=== PATIENT | female | born 1995 | race Caucasian/White ===

== ENCOUNTER 2018-04-10 07:07 | Emergency (ER) | payer MEDICAID, SELFPAY ==
--- NOTE | 2018-04-10 07:07 | DT_ITS ---
This patient was seen during an EMR downtime April 06, 2018 - April 13, 2018. This patient may have a combination of paper and electronic documentation or all paper documentation. All documentation is viewable within the e-chart portion of [facility] for each patient visit.
--- NOTE | 2018-04-10 08:00 | RAD_ITS ---
STUDY: X-RAY CHEST REASON FOR EXAM: Female, 23 years old. Dyspnea. TECHNIQUE: Frontal and lateral views of the chest. COMPARISON: October 19, 2017 FINDINGS: The lungs are clear and expanded. There is no demonstrated pleural abnormality. Normal size heart. Normal mediastinum and luis. Normal visualized pulmonary arteries. Normal visualized aortic arch and descending thoracic aorta. Normal visualized thoracic spine. Normal visualized ribs, clavicles, and shoulders. There is no demonstrated abnormality of the visualized soft tissue structures of the upper abdomen. RAD/Chest PA and Lateral IMPRESSION: No interval change. No acute pathology. Electronically Signed: Jose Antonio Javier MD at 12:58 EDT , Service support ,
--- NOTE | 2018-04-10 08:35 | CT_ITS ---
STUDY: CTA CHEST REASON FOR EXAM: Female, 23 years old. Dyspnea RADIATION DOSAGE (If Supplied By Facility): CTDIvol = ( 11.26 ) mGy, DLP = ( 386.03 ) mGycm TECHNIQUE: The examination was performed with the intravenous administration of 75ML ml of Isovue 370 contrast material. Post-processing of the angiographic images was performed, with multiplanar reformation and 3D reconstruction. Individualized dose optimization techniques were used for this CT. COMPARISON: None. FINDINGS: Normal enhancement of the main pulmonary artery and right and left pulmonary arteries. Normal enhancement of the bilateral peripheral pulmonary arteries. There is no demonstrated pulmonary embolism. Normal thoracic aorta and visualized great vessels. There is no demonstrated aortic dissection. Normal heart and pericardium. Normal mediastinum. Normal hilar regions. Normal visualized trachea and bronchi. The lungs are well expanded. Normal pulmonary parenchyma. Normal pleura. Normal chest wall structures. Normal osseous structures. Normal visualized upper abdomen. CT/Chest W/WO Contrast IMPRESSION: Normal CTA chest examination, without a demonstrated pulmonary embolism or arterial dissection. Electronically Signed: Shukri Plummer MD at 6:20 EDT , Service support ,
[2018-04-13 15:56] LABS: D-Dimer Quantitative (DVT/PE) 1.46 FEU/ug/m (0.27-0.49)
[2018-04-13 15:57] LABS: Absolute Lymphocyte Count 1.31 X10^3/ul (0.83-4.51); Absolute Neutrophil Count 9.1 X10^3/uL (2.0-7.7); Basophil# 0.01 X10^3/uL; Basophil% 0.1 % (0-1); Eosinophil# 0.02 X10^3/uL; Eosinophils% 0.2 % (0-5); Hematocrit 38.7 % (37-47); Hemoglobin 13.2 g/dl (12.0-15.0); Lymphocyte # 1.31 X10^3/ul (4.0); Lymphocyte % 11.7 % (19-41); Mean Corp Hgb Conc 34.1 g/gl (32-36); Mean Corpuscular Hgb 31.8 pg (27.0-32.0); Mean Corpuscular Volume 93.3 fL (81-99); Mean Platelet Vol. 10.7 fl (6.2-12.0); Monocyte# 0.75 X10^3/uL; Monocyte% 6.7 % (0-10); Neutrophil # 9.08 X10^3/uL (2.7-7.7); Neutrophil % 81.2 % (47-70); POSITIVE COUNT NO; POSITIVE DIFFERENTIAL NO; POSITIVE MORPHOLOGY NO; Platelet Count 162 K/mm3 (150-450); RBC Distribution Width SD 12.8 fl (35.1-43.9); Red Blood Count 4.15 M/mm3 (4.2-5.4); White Blood Count 11.2 K/mm3 (4.4-11.0)
[2018-04-13 21:30] LABS: Anion Gap 7 (5-15); BUN 8 mg/dL (7-18); BUN/Creat Ratio 9.5 RATIO (10-20); Calcium,Total 8.5 mg/dL (8.5-10.1); Chloride 110 mmol/L (98-107); Creatinine, Serum 0.84 mg/dL (0.55-1.02); EST Glomerular Filtration Rate 91 mL/min (>60); Est Glom Filt Rate - Afr Amer 110 mL/min (>60); Glucose 97 mg/dL (74-106); Potassium 3.8 mmol/L (3.5-5.1); Sodium Level 141 mmol/L (136-145)
[2018-04-13 21:31] LABS: Pregnancy, Serum, hCG Quali. POSITIVE Negative (0-9 Nonpreg)
== END 2018-04-10 09:40 | disposition home or self-care (01) ==
LOC: ED 12:41
PROVIDERS: Emergency Provider Emergency Medicine; Family Provider Family Medicine; PCP Family Medicine
DX: R06.00 Dyspnea, unspecified (principal); K21.9 Gastro-esophageal reflux disease without esophagitis; Z32.01 Encounter for pregnancy test, result positive; Z72.0 Tobacco use
CPT/HCPCS: 71046; 71270; 80048; 84703; 85025; 85379; 99284; Q9967; A4216

== ENCOUNTER → 2018-04-13 12:09 | Outpatient (CLI) | payer MEDICAID, SELFPAY ==
--- NOTE | 2018-04-13 12:09 | DT_ITS ---
This patient was seen during an EMR downtime April 06, 2018 - April 13, 2018. This patient may have a combination of paper and electronic documentation or all paper documentation. All documentation is viewable within the e-chart portion of [facility] for each patient visit.
--- NOTE | 2018-04-13 12:18 | US_ITS ---
STUDY: ULTRASOUND OF THE FEMALE PELVIS - COMPLETE REASON FOR EXAM: Female, 23 years old. Possible retained products of conception. Miscarriage in February with continued positive beta-hCG. TECHNIQUE: Transabdominal and Transvaginal TECHNICAL QUALITY: Adequate. COMPARISON: None. FINDINGS: The uterus is anteverted and is in a midline position. The uterus measures 8.9 x 3.9 x 5.3 cm. Normal uterine cervix. The endometrium measures 14 mm in thickness, and is heterogeneous (striated). There is no demonstrated endometrial mass. There is no demonstrated myometrial mass. I.U.D. - The patient does not have an I.U.D. The right ovary is visualized. The right ovary measures 3 x 2 x 1.7 cm. There is no right ovarian cyst or ovarian mass. There is no visualized right adnexal mass or complex lesion. There is normal arterial and normal venous vascularity. The left ovary is visualized. The left ovary measures 3.2 x 3.2 x 3 cm. There is a 1.8 x 2 x 1.8 cm cyst. There is no visualized left adnexal mass or complex lesion. There is normal arterial and normal venous vascularity. There is a moderate amount of fluid in the cul-de-sac. The urinary bladder appears grossly unremarkable. US/Transvaginal Non- IMPRESSION: 1. Thickened heterogenous endometrium. The possibility of retained products cannot be completely ruled out. 2. Minimal free fluid in posterior cul-de-sac thought to be physiologic. 3. Normal ovaries. Electronically Signed: New Cho DO at 15:46 EDT Tel [phone], Service support ,
[2018-04-13 15:50] LABS: hCG Titer Quant., Serum 21 mIU/mL (<9 non-preg)
== END ==
PROVIDERS: Family Provider Family Medicine; PCP Family Medicine; Visit Provider Obstetrics & Gynecology
DX: O73.1 Retained portions of placenta and membranes, without hemorrhage (principal); O03.4 Incomplete spontaneous abortion without complication; Z3A.00 Weeks of gestation of pregnancy not specified
CPT/HCPCS: 36415; 76830; 84702

== ENCOUNTER 2018-04-15 10:19 | Day surgery (SDC) | payer MEDICAID, SELFPAY ==
[2018-04-15] VITALS (7 sets, daily range): BP systolic 100–113; BP diastolic 61–76; PULSE 69–84; RESP 14–16; TEMP 36.5–36.8; O2SAT 94–98; BMI 28.3
--- NOTE | 2018-04-15 | POC_PTH ---
PATIENT: ELMER GUTIERREZ LOC: [facility] [place] U#:[id number] AGE/SX: 23/F ROOM: RE04/15/[address]: Dr. Nancy Vizcaino MD : 1995 BED: DIS: 04/15/2018 SPEC #: [id number] RECD: 04/15/18 14:15 STATUS: JENNY BRIANNA #: [id number] TARUN: 04/15/18 00:[address]: Nancy Vizcaino DEPT: SURGICAL PATHOLOGY RECD BY: Anthony Qureshi ENTERED: 04/15/18 14:15 SP TYPE: PROD CONC OTHR DR: Dr. Valentín Jeffries MD Tissues: Product of conception, NOS Procedures: Surgery Specimen Level IV HEADER OPERATION: Dilation and curettage, suction PRE-OP DIAGNOSIS: Retained products of conception TISSUE SUBMITTED: Products of conception MICROSCOPIC DIAGNOSIS Products of conception: Decidua and dyschronous endometrium consistent with weakly proliferative and early secretory endometrium. Fragments of benign ecto- and endocervical mucosa. JAMIE:azucena 04/16/18 COMMENT Chorionic villi are not seen in the submitted specimen. Correlation with clinical findings and appropriate follow up are necessary. Results discussed with Christal Pulido NP on 04/16/18 at 2:40 p.m. MICROSCOPIC DESCRIPTION Slides are reviewed. GROSS DESCRIPTION Received in fixative is one container labeled with the patient's name and designated products of conception. The specimen consists of multiple irregular fragments of neumann-pink soft tissue mixed with mucoid tissue that in aggregate measure 2 x 2 x 0.3 cm. No tissue is identified. The entire specimen is submitted in one cassette. / JAMIE:azucena 04/15/18 TC:5 CPT: 78262
--- NOTE | 2018-04-15 10:44 | HP.PCM_ITS ---
- Problem List (1) Retained products of conception Status: Acute History Date of Admission: 11/24/15 - l&D triage History of this : This is a 23 year-old presents with suspected retaine dPOC after medical 6 weeks ago, hcg still posititve and thickened lining, having pain and spotting. no fevers Medical History: Medical History (Last Reviewed 01/27/18 @ 15:43 by Juyd Stock) Weight loss (Chronic) R63.[address] (Acute) R93.8 Multinodular goiter (Chronic) E04.2 Thyroiditis (Resolved) E06.9 Menorrhagia (Resolved) N92.0 Chest pain (Acute) R07.9 Surgical History: Surgical History (Last Updated 01/27/18 @ 15:44 by Judy Stock) History of thyroid FNA (Resolved) History of appendectomy (Resolved) Z98.890, Z90.49 Hx of cholecystectomy Z90.49 Allergies Sulfa (Sulfonamide Antibiotics) Allergy (Verified 01/27/18 15:42) Hives Smoking Status: Current every day smoker Alcohol: None History Past Pregnancies: Past Pregnancies Delivery Date Name GA/Weeks Outcome Route Weight Gender Labor Length Anesthesia Delivery Location Provider FOB Review of Systems Constitutional: Denies: Fever, Malaise Eyes: Denies: Blurred vision, Vision Change HEENT: Denies: Head Aches, Visual Changes Cardiovascular: Denies: Chest Pain, Palpitations Respiratory: Denies: Cough, Shortness of Breath, Wheezing Gastrointestinal: Reports: Abdominal Pain, Nausea. Denies: Diarrhea, Vomiting Genitourinary: Denies: Dysuria, Hematuria Musculoskeletal: Denies: Joint Pain, Muscle pain Skin: Denies: Lesions, Rash Neurological: Denies: Blurred vision, Focal weakness, Headaches Psychiatric: Denies: Anxiety, Depression Endocrine: Denies: Heat/ Cold Intolerance Hematologic/ Lymphatic: Denies: Easy Bruising, Easy Bleeding Physical Exam General: Alert, Cooperative, No apparent distress HEENT: Atraumatic, Normocephalic. Negative for: Thyromegaly, Lymphadenopathy Cardiovascular: Regular rate Lungs: Normal air movement Abdomen: Soft, Non Tender, Gravid Neurological: Deep Tendon Reflexes 2+/4 and Symmetrical, Neuro grossly intact. Negative for: Clonus DEPUTY SHERIFF/INVESTIGATOR: Normal external genitalia. Negative for: Vulvar lesions Assessment/Plan All Active Problems (Last Reviewed 01/27/18 @ 15:43 by Judy Stock) Retained products of conception (Acute) Abnormal chest CT (Acute) History of thyroid FNA (Resolved) History of appendectomy (Resolved) Thyroiditis (Resolved) Menorrhagia (Resolved) Chest pain (Acute) This is a 23 year-old, with retained POC post recommend suction d and c. doxycycline given preop
[2018-04-15 10:58] LABS: Hematocrit 39.4 % (37-47); Hemoglobin 13.3 g/dl (12.0-15.0); Mean Corp Hgb Conc 33.8 g/gl (32-36); Mean Corpuscular Volume 91.8 fL (81-99); Mean Platelet Vol. 10.6 fl (6.2-12.0); Platelet Count 230 K/mm3 (150-450); RBC Distribution Width CV 12.4 % (11.6-14.6); RBC Distribution Width SD 41.7 fl (35.1-43.9); Red Blood Count 4.29 M/mm3 (4.2-5.4); White Blood Count 9.3 K/mm3 (4.4-11.0)
[2018-04-15 11:15] LABS: Scan Indicated on CBC? Y/N NO
[2018-04-15] MEDS: Doxycycline 100 MG CAPSULE PO (11:30)
--- NOTE | 2018-04-15 14:37 | PCM.DC.D&C ---
Discharge Diet: No Restrictions Discharge Activity: Return to Normal Activity, May Shower, May Take a Tub Bath Allergies/Adverse Reactions: Allergies Sulfa (Sulfonamide Antibiotics) Allergy (Verified 01/27/18 15:42) Hives Medications to take at Discharge Doxycycline 100 mg PO BID #14 cap 04/15/18 The following prescriptions were given: Doxycycline 100 mg PO BID #14 cap Primary Care Physician: Valentín Jeffries MD [Primary Care Provider] - Please Follow Up With: Nancy Vizcaino MD - [phone]
--- NOTE | 2018-04-15 14:38 | PCM.OPRPT ---
Problem List (1) Retained products of conception Status: Acute Report of Operation Date of Procedure: 04/15/18 Pre-Operative Diagnosis: retained POC Post-Operative Diagnosis: same Surgery/Procedure Performed:: suction d and c Description of Surgical Findings:: thickened lining Type of Anesthesia:: Local MAC Special Medications: doxycycline Specimen's removed: poc emc Drains: alarcon Estimated Blood Loss (mL): minimal Fluids Replaced: crystalloid Description of Procedure: sterile prepped and draped in dorsal lithotomy. cervix dilated to allow passage of 7 mm suction curret and multiple passes were made with some tissue removed. sharp currettage performed. bleeding minimal all instruments removed and patient taken to recover in stable condition Grafts/Implants Used: none - Complications none
== END 2018-04-15 15:00 | disposition home or self-care (01) ==
LOC: SDC 10:20 → AC 10:21
PROVIDERS: Family Provider Family Medicine; PCP Family Medicine; Visit Provider Obstetrics & Gynecology
PROC: (CPT 59812; principal; 2018-04-15 12:15)
DX: O03.4 Incomplete spontaneous abortion without complication (principal); F17.200 Nicotine dependence, unspecified, uncomplicated
CPT/HCPCS: 59812; 85027; 86850; 86900; 88305; J7120; J2405

== ENCOUNTER → 2018-04-21 08:30 | Outpatient (CLI) | payer MEDICAID, SELFPAY ==
[2018-04-21 09:57] LABS: hCG Titer Quant., Serum 14 mIU/mL (<9 non-preg)
== END ==
PROVIDERS: Family Provider Family Medicine; PCP Family Medicine; Visit Provider Obstetrics & Gynecology
DX: O73.1 Retained portions of placenta and membranes, without hemorrhage (principal); O03.4 Incomplete spontaneous abortion without complication; Z3A.00 Weeks of gestation of pregnancy not specified
CPT/HCPCS: 36415; 84702

== ENCOUNTER → 2018-04-29 08:09 | Outpatient (CLI) | payer MEDICAID, SELFPAY ==
[2018-04-29 09:40] LABS: hCG Titer Quant., Serum 12 mIU/mL (<9 non-preg)
== END ==
PROVIDERS: Family Provider Family Medicine; PCP Family Medicine; Visit Provider Obstetrics & Gynecology
DX: O02.1 Missed abortion (principal); Z3A.00 Weeks of gestation of pregnancy not specified
CPT/HCPCS: 36415; 84702

== ENCOUNTER → 2018-05-05 08:05 | Outpatient (CLI) | payer MEDICAID, SELFPAY ==
[2018-05-05 10:01] LABS: hCG Titer Quant., Serum 9 mIU/mL (<9 non-preg)
== END ==
PROVIDERS: Family Provider Family Medicine; PCP Family Medicine; Visit Provider Obstetrics & Gynecology
DX: O02.1 Missed abortion (principal)
CPT/HCPCS: 36415; 84702

== ENCOUNTER → 2018-05-08 17:30 | Outpatient (CLI) | payer MEDICAID, SELFPAY ==
[2018-05-08 20:01] LABS: Chlamydia Trachomatis by PCR Negative (Negative); Neisserai gonorrhoeae by PCR Negative (Negative); Probe Check PASS; Sample Adequacy Control PASS; Specimen Processing Control PASS
== END ==
PROVIDERS: Visit Provider Obstetrics & Gynecology
DX: Z11.3 Encounter for screening for infections with a predominantly sexual mode of transmission (principal)
CPT/HCPCS: 87070; 87077; 87205; 87491; 87591

== ENCOUNTER → 2018-05-14 08:28 | Outpatient (CLI) | payer MEDICAID, SELFPAY ==
[2018-05-14 10:07] LABS: hCG Titer Quant., Serum 7 mIU/mL (<9 non-preg)
== END ==
PROVIDERS: Family Provider Family Medicine; PCP Family Medicine; Visit Provider Nurse Practitioner Women's Health
DX: O02.1 Missed abortion (principal); Z3A.00 Weeks of gestation of pregnancy not specified
CPT/HCPCS: 36415; 84702

== ENCOUNTER 2018-05-31 22:33 | Emergency (ER) | payer MEDICAID, SELFPAY ==
[2018-05-31 22:34] VITALS: BP 129/85; PULSE 98; RESP 18; TEMP 37.1; O2SAT 98; BMI 28.0
--- NOTE | 2018-05-31 23:17 | ED.DCSUM_ITS ---
- ER Visit Summary Date of Service: 05/31/18 Chief Complaint: Skin rash and itching History of Present Illness: The patient is a 23 F no significant past medical or surgical history except for hyperthyroidism and prior appendectomy and cholecystectomy. Patient states she recently her hair and got a tattoo on her left shoulder. Since yesterday she has had a rash since raised and itches. It is on her scalp but primarily in both upper extremities. She denies being around poison valentin. Says she has had her hair dyed before and is never had this. He has other tattoos and did not have a problem. She is currently on no medications. She denies being ill or having a fever. Physical Examination: Well-appearing young female. Vital signs are stable afebrile. H EENT exam unremarkable except small raised rash about her ears and scalp. Neck nontender no lymphadenopathy. Lungs clear to auscultation bilaterally. Heart regular rate and rhythm no murmur. Abdomen soft nontender. Moving all 4 extremities. Neurovascularly intact. No edema. She does have the rash on both upper extremities and her abdominal wall. Consistent with allergic reaction. No petechiae. No purpura. No cellulitis. No blisters or vesicles. Back exam unremarkable. Neurologically she is awake and alert. Test Results: None Emergency Department Course and Treatment: Rash is consistent with some type of allergic reaction may or may not be the hair dye. She will be given a dose of prednisone here and placed on a prescription of prednisone. Treatment Plan: Prednisone for the allergic reaction and Benadryl for itching as needed. Disposition: Discharge Impression: Acute rash secondary to acute allergic reaction This note was generated with [employer] dictation software. It may contain incorrect words, spelling, and punctuation that were not noted in review of the chart prior to signing ED Disposition - Plan for ED Patient: Chief Complaint: Rash Referrals: Valentín Jeffries MD [Primary Care Provider] -
--- NOTE | 2018-05-31 23:17 | ED.DEP ---
ED Disposition - Plan for ED Patient: Disposition: Home or Assisted Living Chief Complaint: Rash Instructions: ED Allergic Reaction General Other Prescriptions: Prednisone [Deltasone] 40 mg PO DAILY 7 Days tab Referrals: Valentín Jeffries MD [Primary Care Provider] - As Needed Additional Instructions: Benadryl as needed for itching. Prednisone 40 mg per day till gone or rash resolves. Follow-up your doctor if not improving or return if worse.
[2018-05-31] MEDS: predniSONE 20 MG Tablet 60 MG PO (23:20)
[2018-05-31 23:23] VITALS: PULSE 80; RESP 15; O2SAT 99
== END 2018-05-31 23:24 | disposition home or self-care (01) ==
PROVIDERS: Emergency Provider Emergency Medicine; Family Provider Family Medicine; PCP Family Medicine
DX: R21 Rash and other nonspecific skin eruption (principal); T78.40XA Allergy, unspecified, initial encounter; X58.XXXA Exposure to other specified factors, initial encounter; E05.90 Thyrotoxicosis, unspecified without thyrotoxic crisis or storm; F17.200 Nicotine dependence, unspecified, uncomplicated
CPT/HCPCS: 99283

== ENCOUNTER → 2018-09-22 13:53 | Outpatient (CLI) | payer MEDICAID, SELFPAY ==
[2018-09-22 15:58] LABS: hCG Titer Quant., Serum < 1 mIU/mL (<9 non-preg)
== END ==
PROVIDERS: Family Provider Family Medicine; PCP Family Medicine; Referring Provider Obstetrics & Gynecology; Visit Provider Obstetrics & Gynecology
DX: N91.2 Amenorrhea, unspecified (principal)
CPT/HCPCS: 36415; 84702

== ENCOUNTER 2019-04-12 22:26 | Emergency (ER) | payer SELFPAY ==
[2019-04-12 22:26] VITALS: BP 130/89; PULSE 94; RESP 16; TEMP 36.7; O2SAT 99; BMI 28.3
--- NOTE | 2019-04-12 23:02 | EKG12_ITS ---
Test Reason : Blood Pressure : / mmHG Vent. Rate : 086 BPM Atrial Rate : 086 BPM P-R Int : 148 ms QRS Dur : 090 ms QT Int : 366 ms P-R-T Axes : 066 038 033 degrees QTc Int : 437 ms Normal sinus rhythm Normal ECG Confirmed by MICHAEL VALDIVIA, NONA ([id number]), primer expeditor and drier WILLIAM SLADE ([id number]) on 04/14/2019 11:17:47 AM Referred By: PASCUAL Confirmed By:NONA RODRIGUEZ MD
--- NOTE | 2019-04-12 23:02 | RAD_ITS ---
STUDY: X-RAY CHEST REASON FOR EXAM: Female, 24 years old. Headache. Dizziness. Shortness of breath. TECHNIQUE: PA and lateral views of the chest. COMPARISON: None April 10, 2018. FINDINGS: The lungs are clear and expanded. There is no demonstrated pleural abnormality. Normal size heart. Normal mediastinum and luis. Normal visualized pulmonary arteries. Normal visualized aortic arch and descending thoracic aorta. Normal visualized thoracic spine. Normal visualized ribs, clavicles, and shoulders. There is no demonstrated abnormality of the visualized soft tissue structures of the upper abdomen. RAD/Chest PA and Lateral IMPRESSION: No acute cardiopulmonary process. Electronically Signed: Nayeli Dick MD at 23:33 EDT Tel , Service support ,
[2019-04-12 23:20] LABS: Absolute Lymphocyte Count 3.64 X10^3/ul (0.83-4.51); Absolute Neutrophil Count 7.3 X10^3/uL (2.0-7.7); Basophil# 0.03 X10^3/uL; Basophil% 0.3 % (0-1); Eosinophil# 0.26 X10^3/uL; Eosinophils% 2.2 % (0-5); Hemoglobin 14.3 g/dl (12.0-15.0); Lymphocyte # 3.64 X10^3/ul (4.0); Lymphocyte % 30.5 % (19-41); Mean Corpuscular Hgb 31.8 pg (27.0-32.0); Mean Corpuscular Volume 93.3 fL (81-99); Mean Platelet Vol. 10.5 fl (6.2-12.0); Monocyte# 0.62 X10^3/uL; Monocyte% 5.2 % (0-10); Neutrophil # 7.32 X10^3/uL (2.7-7.7); Neutrophil % 61.3 % (47-70); Platelet Count 260 K/mm3 (150-450); RBC Distribution Width SD 43.9 fl (35.1-43.9); White Blood Count 11.9 K/mm3 (4.4-11.0)
[2019-04-12 23:21] LABS: POSITIVE COUNT NO; POSITIVE DIFFERENTIAL NO; POSITIVE MORPHOLOGY NO
[2019-04-12 23:27] LABS: Internal QC Validated? YES +Cl - CLEAR BKGD; Pregnancy, Serum, hCG Quali. NEGATIVE Negative
[2019-04-12] MEDS: Ondansetron 4 MG/2 ML Vial IV (23:30)
[2019-04-12] MEDS: 0.9% Normal Saline 1,000 ML 999 ML IV (23:30)
[2019-04-12 23:40] LABS: Anion Gap 7 (5-15); BUN 10 mg/dL (7-18); BUN/Creat Ratio 10.2 RATIO (10-20); Calcium,Total 8.7 mg/dL (8.5-10.1); Chloride 104 mmol/L (98-107); Creatinine, Serum 0.98 mg/dL (0.55-1.02); EST Glomerular Filtration Rate 75 mL/min (>60); Est Glom Filt Rate - Afr Amer 91 mL/min (>60); Estimated Creatinine Clearance 67.95 ml/min; Glucose 147 mg/dL (74-106); Potassium 3.5 mmol/L (3.5-5.1); Sodium Level 138 mmol/L (136-145); Thyroid Stim Hormone (TSH) 0.35 uIU/mL (0.358-3.74)
--- NOTE | 2019-04-12 23:49 | ED.VISSUMM ---
- ER Visit Summary Date of Service: 04/12/19 Chief Complaint: Headache History of Present Illness: The patient is a 24 F who complains of a headache. This began about 3 hours ago and gradually worsened over that time. She rates it as 5 out of 10. She also complains of associated nausea and feeling dizzy or lightheaded. No fevers chest pain shortness of breath abdominal pain. She also complains of a strange sensation in her abdomen. She described it as popping a water balloon having it drained. However she had no pain. This is since resolved. Family is concerned that this may be related to her thyroid as she has a history of thyroiditis. They are also concerned because she has a history of a pulmonary nodule and never followed up with pulmonology for this. They are also concerned because a family member was admitted for a E. coli infection and they fear this may be related to the patient's symptoms. Physical Examination: Afebrile vitals are normal Patient resting comfortably no distress Moist mucous membranes Heart regular rate and rhythm Lungs are clear Abdomen soft nontender Alert oriented GCS 15 no focal or lateralizing neurological deficits Test Results: EKG shows normal sinus rhythm at a rate of 86. Labs notable for white count 11.9, glucose 147. negative. TSH 0.35. Chest x-ray shows no acute process. Emergency Department Course and Treatment: Initially plan was just to treat her headache with IV fluids Toradol and Reglan. Patient then expressed concerns to nursing that I was not obtaining any imaging or laboratory studies. I again spoke to the patient. She now is also complaining of chest pain or shortness of breath. Therefore the above work-up was pursued which is unremarkable. The patient was reassured. She had declined the Toradol or Reglan here but was given Zofran for nausea. Patient advised to follow-up as an outpatient and was discharged home. Treatment Plan: [] Disposition: Discharge Impression: Headache Dizziness Shortness of breath This note was generated with [employer] dictation software. It may contain incorrect words, spelling, and punctuation that were not noted in review of the chart prior to signing ED Disposition - Plan for ED Patient: Referrals: Valentín Jeffries MD [Primary Care Provider] -
--- NOTE | 2019-04-12 23:52 | ED.DEP ---
ED Disposition - Plan for ED Patient: Instructions: ED Cephalgia Unspecified, ED Dizziness [facility] Referrals: Valentín Jeffries MD [Primary Care Provider] -
[2019-04-12 23:54] VITALS: BP 128/85; PULSE 74; RESP 18; O2SAT 99
== END 2019-04-13 | disposition home or self-care (01) ==
LOC: ED 22:58
PROVIDERS: Emergency Provider Emergency Medicine; Family Provider Family Medicine; PCP Family Medicine
DX: R51 Headache (principal); R42 Dizziness and giddiness; R06.00 Dyspnea, unspecified; R11.0 Nausea; Z86.39 Personal history of other endocrine, nutritional and metabolic disease; Z72.0 Tobacco use
CPT/HCPCS: 71046; 80048; 84443; 84703; 85025; 93005; 96361; 96374; 99283; J7030; A4216; J2405

== ENCOUNTER → 2019-06-29 | Outpatient (CLI) | payer MEDICAID, SELFPAY ==
[2019-06-29 14:43] VITALS: BMI 28.3
== END | disposition home or self-care (01) ==
LOC: LABSPEC 15:35
PROVIDERS: Family Provider Family Medicine; PCP Family Medicine; Visit Provider Nurse Practitioner Women's Health
DX: N39.0 Urinary tract infection, site not specified (principal)
CPT/HCPCS: 87086; 87088; 87491; 87591

== ENCOUNTER → 2019-08-16 11:22 | Outpatient (CLI) | payer MEDICAID, SELFPAY ==
[2019-06-29 14:43] VITALS: BMI 28.3
[2019-08-16 12:25] LABS: hCG Titer Quant., Serum < 1 mIU/mL (1-3)
== END ==
PROVIDERS: Family Provider Family Medicine; PCP Family Medicine; Referring Provider Obstetrics & Gynecology; Visit Provider Obstetrics & Gynecology
DX: N91.2 Amenorrhea, unspecified (principal)
CPT/HCPCS: 36415; 84702

== ENCOUNTER → 2019-11-25 15:55 | Outpatient (CLI) | payer MEDICAID, SELFPAY ==
[2019-11-25 15:18] VITALS: BMI 28.3
[2019-11-25 16:58] LABS: hCG Titer Quant., Serum 331 mIU/mL (1-3)
[2019-11-25 17:40] LABS: Amphetamine Urine VISTA NEGATIVE (<1000 ng/mL); Barbiturate Urine VISTA NEGATIVE (< 200 ng/mL); Benzodiazepine Urine VISTA NEGATIVE (< 200 ng/mL); Cocaine Urine VISTA NEGATIVE (< 300 ng/mL); Ecstacy Urine VISTA NEGATIVE (< 500 ng/mL); Methadone Urine VISTA NEGATIVE (< 300 ng/mL); PCP Urine VISTA NEGATIVE (< 25 ng/mL); THC Urine VISTA NEGATIVE (< 50 ng/mL); Vista UDS pH Range 6
[2019-11-25 18:57] LABS: Chlamydia Trachomatis by PCR Negative (Negative); Neisserai gonorrhoeae by PCR Negative (Negative); Probe Check PASS; Sample Adequacy Control PASS; Specimen Processing Control PASS
[2019-12-01 12:01] LABS: HPV Reflexed? NOT INDICATED
== END ==
PROVIDERS: PCP Family Medicine; Referring Provider Obstetrics & Gynecology; Visit Provider Obstetrics & Gynecology
DX: Z34.90 Encounter for supervision of normal pregnancy, unspecified, unspecified trimester (principal)
CPT/HCPCS: 36415; 80307; 84702; 87086; 87088; 87491; 87591; 88175; G0145

== ENCOUNTER → 2019-11-27 10:43 | Outpatient (CLI) | payer MEDICAID, SELFPAY ==
[2019-11-25 15:18] VITALS: BMI 28.3
[2019-11-27 11:28] LABS: hCG Titer Quant., Serum 468 mIU/mL (1-3)
== END ==
PROVIDERS: PCP Family Medicine; Referring Provider Obstetrics & Gynecology; Visit Provider Obstetrics & Gynecology
DX: Z34.90 Encounter for supervision of normal pregnancy, unspecified, unspecified trimester (principal)
CPT/HCPCS: 36415; 84702

== ENCOUNTER → 2019-11-29 12:45 | Outpatient (CLI) | payer MEDICAID, SELFPAY ==
[2019-11-25 15:18] VITALS: BMI 28.3
[2019-11-29 13:31] LABS: hCG Titer Quant., Serum 744 mIU/mL (1-3)
== END ==
LOC: PAVLAB 12:46
PROVIDERS: PCP Family Medicine; Referring Provider Obstetrics & Gynecology; Visit Provider Obstetrics & Gynecology
DX: Z34.90 Encounter for supervision of normal pregnancy, unspecified, unspecified trimester (principal)
CPT/HCPCS: 36415; 84702

== ENCOUNTER → 2019-12-01 09:32 | Outpatient (CLI) | payer MEDICAID, SELFPAY ==
[2019-11-25 15:18] VITALS: BMI 28.3
[2019-12-01 11:24] LABS: hCG Titer Quant., Serum 1145 mIU/mL (1-3)
== END ==
LOC: PAVLAB 09:34
PROVIDERS: PCP Family Medicine; Visit Provider Obstetrics & Gynecology
DX: Z34.90 Encounter for supervision of normal pregnancy, unspecified, unspecified trimester (principal)
CPT/HCPCS: 36415; 84702

== ENCOUNTER → 2019-12-03 10:50 | Outpatient (CLI) | payer MEDICAID, SELFPAY ==
[2019-11-25 15:18] VITALS: BMI 28.3
--- NOTE | 2019-12-03 11:02 | US_ITS ---
STUDY: FIRST TRIMESTER OBSTETRICAL ULTRASOUND REASON FOR EXAM: Female, 24 years old VIABILITY quants are not doubling. LMP: October 22, 2019. TECHNIQUE: Transvaginal TECHNICAL QUALITY: Adequate. PRIOR ULTRASOUND: None. FINDINGS: 2 tiny cystic areas are seen within the endometrium. Not typical gestational sac appearance. One sac measures 2.9 mm and corresponds to 4 weeks and 4 days gestation. The second sac measures 2.7 mm suggestive of a 4 week and 4 day gestation. There is no demonstrated yolk sac. The placenta is non-visualized. There is no demonstrated embryo ( pole). The estimated gestation age (EGA) by LMP is 6 weeks, 0 days. The estimated date of delivery (CALLI) by LMP is July 28, 2020. The estimated gestation age (EGA) by US is 4 weeks, 4 days. The estimated date of delivery (CALLI) by US is August 07, 2020. The uterus measures 8.8 cm x 5.7 cm x 4.1 cm. The endometrium measures 7 mm. There is no demonstrated uterine fibroid. The cervix is closed. The right ovary measures 3.7 cm x 2.2 cm x 2.8 cm. There is a 2.2 cm x 1.6 x 1.9 cm hypoechoic density within it. There is no visualized right adnexal mass or complex lesion. The left ovary measures 2.5 cm x 2 cm x 1.9 cm. There is no left ovarian cyst. There is no visualized left adnexal mass or complex lesion. There is no fluid in the cul de sac. US/Init OB < 14Wks US IMPRESSION: 2 tiny cystic areas within the endometrium not suggestive of gestational sacs. A follow-up sonogram with beta hCG correlation is recommended. Electronically Signed: Kenyon Jackson, at 13:56 EST , Service support ,
[2019-12-03 11:38] LABS: hCG Titer Quant., Serum 1445 mIU/mL (1-3)
== END ==
PROVIDERS: Nurse Practitioner Women's Health; PCP Family Medicine; Referring Provider Obstetrics & Gynecology; Visit Provider Obstetrics & Gynecology
DX: Z34.90 Encounter for supervision of normal pregnancy, unspecified, unspecified trimester (principal)
CPT/HCPCS: 36415; 76801; 84702

== ENCOUNTER → 2019-12-22 12:21 | Outpatient (CLI) | payer MEDICAID, SELFPAY ==
[2019-11-25 15:18] VITALS: BMI 28.3
[2019-12-10 09:54] VITALS: BMI 28.3
--- NOTE | 2019-12-22 12:22 | US_ITS ---
STUDY: FIRST TRIMESTER OBSTETRICAL ULTRASOUND REASON FOR EXAM: Female, 24 years old VIABILITY - F/U PREV US FROM 12-03-19 IN PACS LMP: July 28, 2020. TECHNIQUE: Transvaginal TECHNICAL QUALITY: Adequate. PRIOR ULTRASOUND: Comparison is made with prior examination dated December 03, 2019. FINDINGS: There is visualization of a single gestational sac in a normal intrauterine position. The mean sac diameter (MSD) measures 11.6 mm, indicating an estimated gestational age (EGA) of 5 weeks, 5 days. A normal appearance with a septation within the gestational sac. There is a visualized yolk sac. The yolk sac measures 4.5 mm. The placenta is non-visualized. There is no demonstrated embryo ( pole). The uterus measures 9.2 cm x 5.8 cm by 4.6 cm. There is no demonstrated uterine fibroid. The cervix is closed. The right ovary measures 4 cm x 2.5 cm by 2.8 cm. There is a 2.4 cm x 1.9 cm x 2.1 cm hypoechoic nodule within the right ovary. There is no visualized right adnexal mass or complex lesion. The left ovary measures 2.2 cm x 2.3 cm x 1.2 cm. There is no left ovarian cyst. There is no visualized left adnexal mass or complex lesion. There is no fluid in the cul de sac. US/Init OB < 14Wks US IMPRESSION: Abnormal appearance of a septated intrauterine gestational sac. Abnormal appearance of the occiput. 2.4 cm x 1.9 cm x 2.1 cm hypoechoic density in the right ovary. Electronically Signed: Kenyon Jackson, at 13:17 EST , Service support ,
== END ==
PROVIDERS: PCP Family Medicine; Referring Provider Obstetrics & Gynecology; Visit Provider Obstetrics & Gynecology
DX: Z34.90 Encounter for supervision of normal pregnancy, unspecified, unspecified trimester (principal)
CPT/HCPCS: 76801

== ENCOUNTER → 2020-01-04 13:13 | Outpatient (CLI) | payer MEDICAID, SELFPAY ==
[2019-12-27 14:08] VITALS: BMI 28.3
[2020-01-04 13:56] LABS: hCG Titer Quant., Serum 19 mIU/mL (1-3)
== END ==
PROVIDERS: PCP Family Medicine; Referring Provider Obstetrics & Gynecology; Visit Provider Obstetrics & Gynecology
DX: O03.9 Complete or unspecified spontaneous abortion without complication (principal)
CPT/HCPCS: 36415; 84702

== ENCOUNTER → 2020-02-03 15:44 | Outpatient (CLI) | payer MEDICAID, SELFPAY ==
[2020-02-03 14:29] VITALS: BMI 28.3
[2020-02-07 16:12] LABS: HSV Culture Without Typing Positive (.)
== END ==
PROVIDERS: PCP Family Medicine; Referring Provider Obstetrics & Gynecology; Visit Provider Obstetrics & Gynecology
DX: A60.00 Herpesviral infection of urogenital system, unspecified (principal)
CPT/HCPCS: 87255

== ENCOUNTER → 2020-04-09 11:17 | Outpatient (CLI) | payer MEDICAID, SELFPAY ==
[2020-02-03 14:29] VITALS: BMI 28.3
[2020-04-09 12:26] LABS: hCG Titer Quant., Serum 1654 mIU/mL (1-3)
== END ==
PROVIDERS: PCP Family Medicine; Referring Provider Nurse Practitioner Women's Health; Visit Provider Nurse Practitioner Women's Health
DX: Z87.59 Personal history of other complications of pregnancy, childbirth and the puerperium (principal)
CPT/HCPCS: 36415; 84702

== ENCOUNTER → 2020-04-11 10:23 | Outpatient (CLI) | payer MEDICAID, SELFPAY ==
[2020-02-03 14:29] VITALS: BMI 28.3
[2020-04-11 11:25] LABS: hCG Titer Quant., Serum 3093 mIU/mL (1-3)
== END ==
PROVIDERS: PCP Family Medicine; Referring Provider Nurse Practitioner Women's Health; Visit Provider Nurse Practitioner Women's Health
DX: Z87.59 Personal history of other complications of pregnancy, childbirth and the puerperium (principal)
CPT/HCPCS: 36415; 84702

== ENCOUNTER → 2020-04-17 13:42 | Outpatient (CLI) | payer MEDICAID, SELFPAY ==
[2020-02-03 14:29] VITALS: BMI 28.3
--- NOTE | 2020-04-17 13:43 | US_ITS ---
STUDY: FIRST TRIMESTER OBSTETRICAL ULTRASOUND REASON FOR EXAM: Female, 25 years old VIABILITY HX OF MISCARRIAGE LMP: March 06, 2020 TECHNIQUE: Transvaginal TECHNICAL QUALITY: Adequate. PRIOR ULTRASOUND: Comparison is made with prior examination December 22, 2019. FINDINGS: There is visualization of a single gestational sac in a normal intrauterine position. The mean sac diameter (MSD) measures 1.34 cm, indicating an estimated gestational age (EGA) of 6 weeks, 1 days. The gestational sac shape is within normal limits. There is a visualized yolk sac. The yolk sac measures 3 mm. The placenta is non-visualized. There is visualization of a live embryo. The crown-rump length (CRL) measures 5 mm, indicating an estimated gestational age (EGA) of 6 weeks, 2 days. There is demonstrated cardiac activity with a heart rate of 120 bpm. The estimated gestation age (EGA) by LMP is 6 weeks, 0 days. The estimated date of delivery (CALLI) by LMP is December 11, 2020. The estimated gestation age (EGA) by US is 6 weeks, 2 days. The estimated date of delivery (CALLI) by US is December 09, 2020. The uterus measures 8.8 cm x 5.4 cm x 4.5 cm. There is no demonstrated uterine fibroid. The cervix is closed. The right ovary measures 3 cm x 2.1 cm x 2.3 cm. There is no right ovarian cyst. There is no visualized right adnexal mass or complex lesion. The left ovary measures 2.5 cm x 1.6 cm x 1.8 cm. There is no left ovarian cyst. There is no visualized left adnexal mass or complex lesion. There is no fluid in the cul de sac. US/Init OB < 14Wks US IMPRESSION: Single live intrauterine gestation with a mean gestational age of 6 weeks and 2 days. Electronically Signed: Kenyon Jackson, at 15:00 EDT , Service support ,
== END ==
PROVIDERS: PCP Physician Assistant; Referring Provider Obstetrics & Gynecology; Visit Provider Obstetrics & Gynecology
DX: O09.299 Supervision of pregnancy with other poor reproductive or obstetric history, unspecified trimester (principal); Z3A.00 Weeks of gestation of pregnancy not specified
CPT/HCPCS: 76801

== ENCOUNTER → 2020-05-11 | Outpatient (CLI) | payer MEDICAID, SELFPAY ==
[2020-05-11 11:54] VITALS: BMI 28.3
[2020-05-11 20:30] LABS: Chlamydia Trachomatis by PCR Negative (Negative); Neisserai gonorrhoeae by PCR Negative (Negative); Probe Check PASS; Sample Adequacy Control PASS; Specimen Processing Control PASS
== END | disposition home or self-care (01) ==
LOC: LABSPEC 15:11
PROVIDERS: PCP Physician Assistant; Referring Provider Obstetrics & Gynecology; Visit Provider Obstetrics & Gynecology
DX: Z34.90 Encounter for supervision of normal pregnancy, unspecified, unspecified trimester (principal)
CPT/HCPCS: 87491; 87591

== ENCOUNTER → 2020-05-12 09:34 | Outpatient (CLI) | payer MEDICAID, SELFPAY ==
[2020-05-11 11:54] VITALS: BMI 28.3
[2020-05-12 10:44] LABS: Amphetamine Urine VISTA NEGATIVE (<1000 ng/mL); Barbiturate Urine VISTA NEGATIVE (< 200 ng/mL); Benzodiazepine Urine VISTA NEGATIVE (< 200 ng/mL); Cocaine Urine VISTA NEGATIVE (< 300 ng/mL); Ecstacy Urine VISTA NEGATIVE (< 500 ng/mL); Methadone Urine VISTA NEGATIVE (< 300 ng/mL); PCP Urine VISTA NEGATIVE (< 25 ng/mL); THC Urine VISTA NEGATIVE (< 50 ng/mL); Vista UDS pH Range 6
[2020-05-12 10:57] LABS: NATERA MAILED SPECIMEN
[2020-05-12 10:59] LABS: T4 Free Direct 0.93 ng/dL (0.76-1.46); Thyroid Stim Hormone (TSH) 0.27 uIU/mL (0.358-3.74)
[2020-05-12 11:40] LABS: HIV - WCH Non-Reactive (Nonreactive); Hepatitis B Surface Antigen Non-Reactive (Nonreactive); Hepatitis C Antibody Non-Reactive (Nonreactive)
[2020-05-18 03:25] LABS: Rapid Plasmin Reagin (RPR) NONREACTIVE (NONREACTIVE)
== END ==
PROVIDERS: PCP Physician Assistant; Referring Provider Obstetrics & Gynecology; Visit Provider Obstetrics & Gynecology
DX: O99.281 Endocrine, nutritional and metabolic diseases complicating pregnancy, first trimester (principal); E04.2 Nontoxic multinodular goiter; Z3A.00 Weeks of gestation of pregnancy not specified; Z31.430 Encounter of female for testing for genetic disease carrier status for procreative management
CPT/HCPCS: 36415; 80307; 84439; 84443; 86592; 86703; 86762; 86803; 86850; 86900; 86901; 87086; 87088; 87340

== ENCOUNTER 2020-05-28 19:28 | Emergency (ER) | payer MEDICAID, SELFPAY ==
[2020-05-11 11:54] VITALS: BMI 28.3
[2020-05-28 19:29] VITALS: BP 135/69; PULSE 100; RESP 16; TEMP 36.8; O2SAT 100; BMI 30.9
== END 2020-05-28 20:40 | disposition left against medical advice (07) ==
LOC: ED 19:57
PROVIDERS: Emergency Provider Emergency Medicine; PCP Physician Assistant
DX: K08.9 Disorder of teeth and supporting structures, unspecified (principal)

== ENCOUNTER 2020-07-27 19:57 | Observation (INO) | payer MEDICAID, SELFPAY ==
[2020-07-06 11:33] VITALS: BMI 30.9
[2020-07-27 19:58] VITALS: BP 119/41; PULSE 135; RESP 18; TEMP 37.7; O2SAT 97; BMI 32.3
--- NOTE | 2020-07-27 20:05 | EKG12_ITS ---
Test Reason : SOB Blood Pressure : / mmHG Vent. Rate : 128 BPM Atrial Rate : 128 BPM P-R Int : 130 ms QRS Dur : 090 ms QT Int : 314 ms P-R-T Axes : 061 048 029 degrees QTc Int : 458 ms Sinus tachycardia Otherwise normal ECG Confirmed by FRANCESCO VALDIVIA, CONCHITA ([id number]), social media editor MARIELA KHAN ([id number]) on 08/03/2020 12:50:49 P M Referred By: SHERLY Confirmed By:ROBERTO MAYA MD
--- NOTE | 2020-07-27 20:18 | ED.DCSUM_ITS ---
History of Present Illness Chief Complaint: Shortness of Breath Informant: Patient Narrative: Patient is a 25-year-old G3, P2 female at approximately 21 weeks who presents the emerge department for cough, shortness of breath, chest wall pain, loss of taste and fever. Her symptoms started yesterday. She denies any known sick contacts or exposures to coronavirus. Temperature has been up to 100.4. She did take Tylenol for her symptoms. She has had nasal congestion. No earache or sinus pain. She did have some episodes of vomiting yesterday but this has since resolved. No diarrhea. She denies any rash. No urinary symptoms. No vaginal bleeding or discharge. Her cough has been nonproductive. She denies any abdominal pain or cramping. No issues with this . Past Medical History - Allergies and Home Meds Allergies/Adverse Reactions: Allergies Sulfa (Sulfonamide Antibiotics) Allergy (Verified 07/27/20 20:02) Hives Prior records reviewed: Yes Past Medical History: None Surgical History: appendectomy, cholecystectomy Smoking Status: Unknown if ever smoked - Family History Maternal Family History: Family History (Last Reviewed 07/06/20 @ 11:17 by Leighann Contreras) Mother Thyroid disorder Father Hypertension Grandmother Heart disease Diabetes Grandfather Heart disease Hypertension Diabetes Cancer Review of Systems All systems negative except as indicated General: Reports: Fever. Denies: Chills, Sweats Eyes: Denies: Visual changes - bilaterally, Diplopia ENT: Reports: Rhinorrhea. Denies: Bilateral ear pain, Sore throat Cardiovascular: Denies: Chest pain, Palpitations Respiratory: Reports: Dyspnea, Cough Gastrointestinal: Reports: Nausea. Denies: Abdominal pain, Vomiting, Diarrhea, Melena, Hematochezia Genitourinary: Denies: Dysuria, Hematuria, Frequency Musculoskeletal: Reports: Myalgias. Denies: Back pain, Extremity Pain Skin: Denies: Rash, Wounds Neurological: Denies: Headache, Weakness, Numbness Physical Exam Vital Signs/Narrative: Vital Signs Temp Pulse Resp BP Pulse Ox 07/27/20 19:58 99.8 F H 135 H 18 119/41 L 97 Inital Vital Signs reviewed: Yes - Tachycardic General: Well nourished, Well developed, No Acute Distress Head: Normocephalic, Atraumatic Eyes: Perrl, EOMI ENT: Moist mucous membranes, No rhinorrhea Neck: Supple, Nontender Cardiovascular: Regular rhythm, No murmurs, Tachycardia Respiratory: No distress, CTA bilaterally, Chest nontender Abdomen: Soft, Nontender, Nondistended, Normal bowel sounds, - - Gravid Back: Nontender, Normal Inspection Extremities: Nontender. Negative for: Edema, Calf Tenderness Skin: Normal color, No rash Neurological: Alert, Oriented x3, Cranial nerves II-XII grossly intact, Normal Strength, Normal Sensation Psychological: Normal affect, Normal Mood Diagnostic/Tx/Re-eval - Medical Decision Making Patient presents to the emergency department for cough, shortness of breath, loss of taste. Patient is tachycardic and started on IV fluids. Her coronavirus test came back negative although this is 24 to 48 hours within the initial onset of her symptoms and the could be a false negative. X-ray did show evidence of a right infiltrate and will start on community-acquired antibiotics with azithromycin and Rocephin. Despite IV antibiotics he is still tachycardic. Does have elevated white blood cell count. Will treat as sepsis. She does not have an elevated lactic so we will hold off on the full 30 cc/kg bolus dosing. Her potassium was mildly low so this was replaced. Patient otherwise has been stable throughout ED stay. She understands and is agreeable with this plan. ED Disposition - Plan for ED Patient: Disposition: Acute Care Hospital [facility] Diagnosis: Community acquired pneumonia, Sepsis
--- NOTE | 2020-07-27 20:35 | RAD_ITS ---
STUDY: X-RAY CHEST REASON FOR EXAM: Female, 25 years old. cough, shortness of breath, loss of taste and smell, patient is , appropriate shielding was used TECHNIQUE: Single AP portable view of the chest. COMPARISON: Prior study of 04/12/2019 FINDINGS: floorperson leads are seen. There is a hazy right lower lobe infiltrate. There is no demonstrated pleural abnormality. Normal size heart. Normal mediastinum and luis. Normal visualized pulmonary arteries. Normal visualized aortic arch and descending thoracic aorta. Normal visualized thoracic spine. Normal visualized ribs, clavicles, and shoulders. There is no demonstrated abnormality of the visualized soft tissue structures of the upper abdomen. RAD/Chest 1 View (Portable) IMPRESSION: Hazy right lower lobe infiltrate. Electronically Signed: Leo Stewart MD at 20:57 EDT , Service support ,
[2020-07-27 20:38] LABS: Absolute Lymphocyte Count 1.61 X10^3/uL (0.83-4.51); Absolute Neutrophil Count 14.4 X10^3/uL (2.0-7.7); Basophil# 0.04 X10^3/uL; Basophil% 0.2 % (0-1); Eosinophil# 0.23 X10^3/uL; Eosinophils% 1.3 % (0-5); Hematocrit 32.1 % (37-47); Hemoglobin 10.9 g/dL (12.0-15.0); Lymphocyte # 1.61 X10^3/ul (4.0); Lymphocyte % 9.4 % (19-41); Mean Corpuscular Hgb 31.6 pg (27.0-32.0); Mean Platelet Vol. 11.7 fl (6.2-12.0); Monocyte# 0.72 X10^3/uL; Monocyte% 4.2 % (0-10); NRBC Flagged by Analyzer 0 % (0-5); Neutrophil # 14.37 X10^3/uL (2.7-7.7); Neutrophil % 84.4 % (47-70); Platelet Count 196 K/mm3 (150-450); RBC Distribution Width SD 40.9 fl (35.1-43.9); Red Blood Count 3.45 M/mm3 (4.2-5.4); White Blood Count 17.1 K/mm3 (4.4-11.0)
[2020-07-27 20:58] LABS: ALB/GLOB Ratio 0.8 RATIO (0.9-2.4); AST(SGOT) 9 U/L (15-37); Alanine Aminotransfer ALT/SGPT 17 U/L (13-56); Albumin, Serum 3.1 g/dL (3.2-5.0); Alkaline Phosphatase 80 U/L (45-117); Anion Gap 8 (5-15); BUN 2 mg/dL (7-18); BUN/Creat Ratio 3.3 RATIO (10-20); Calcium,Total 8.4 mg/dL (8.5-10.1); Chloride 106 mmol/L (98-107); Creatinine, Serum 0.61 mg/dL (0.55-1.02); EST Glomerular Filtration Rate 129 mL/min (>60); Est Glom Filt Rate - Afr Amer 156 mL/min (>60); Estimated Creatinine Clearance 108.24 ml/min; Globulin 4.1 g/dL (2.2-4.2); Glucose 113 mg/dL (74-106); Potassium 3.1 mmol/L (3.5-5.1); Protein, Total 7.2 g/dL (6.4-8.2); Sodium Level 137 mmol/L (136-145)
[2020-07-27 21:17] LABS: Lactic Acid 1.8 mmol/L (0.4-1.9)
[2020-07-27 21:37] VITALS: BP 110/58; PULSE 133; RESP 22; O2SAT 99
[2020-07-27] MEDS: 0.9% Normal Saline 1,000 ML 999 ML IV (21:41)
[2020-07-27 22:37] VITALS: BP 114/56; PULSE 121; RESP 22; O2SAT 99
--- NOTE | 2020-07-27 23:48 | HP.PCM_ITS ---
History of Present Illness Date of Admission: 07/27/20 Chief Complaint: Shortness of breath The patient is a 25 year old F who is 21 weeks presents with cough, shortness of breath as well as loss of taste but not a loss of sense of smell, and a fever. In the ER she has a white count of 17,000 as well as a temperature of up to 100.4. Chest x-ray showed an early onset right lower lobe pneumonia. She was given IV fluids and started on Rocephin and azithromycin. She states that her daughter had a cold on Friday and on was normal, but that when she started feeling sick. She is upset about having to be admitted, she just came to the hospital to figure out what is wrong with her but wanted to go home. Nobody else is sick and she has had no known exposures to COVID, and her COVID test was negative. Past Medical History Past Medical History (Chronic Problems): Chronic Problems (Last Reviewed 07/06/20 @ 11:17 by Leighann Contreras) Multinodular goiter (Chronic) check tsh q trimester. TSH low on 05/12/20. Medical History: Medical History (Last Reviewed 07/06/20 @ 11:17 by Leighann Contreras) Multinodular goiter (Chronic) E04.2 check tsh q trimester. TSH low on 05/12/20. Thyroiditis (Resolved) E06.9 Allergies Sulfa (Sulfonamide Antibiotics) Allergy (Verified 07/27/20 20:02) Hives Home Medications: Ambulatory Orders Medication Instructions Recorded No122/Iron/Folic Acid 1 ea PO DAILY 07/27/20 [ Multi Tablet] Surgical History: Surgical History (Last Reviewed 07/06/20 @ 11:17 by Leighann Contreras) H/O dilation and curettage Z98.890 04/15/18 Hx of cholecystectomy Z90.49 S/P appendectomy Z90.49 Surgical History: appendectomy, cholecystectomy Smoking Status: Current every day smoker Tobacco Use: Cigarettes Alcohol: None Drugs: None - *Family History Maternal Family History: Family History (Last Reviewed 07/06/20 @ 11:17 by Leighann Contreras) Mother Thyroid disorder Father Hypertension Grandmother Heart disease Diabetes Grandfather Heart disease Hypertension Diabetes Cancer Review of Systems Constitutional: Reports: Fever HEENT: Denies: Head Aches, Sinus Congestion, Sinus Drainage Cardiovascular: Denies: Chest Pain, Palpitations Respiratory: Reports: Cough, Shortness of Breath. Denies: Shortness of breath at rest, Sputum production Gastrointestinal: Denies: Abdominal Pain, Nausea, Vomiting Genitourinary: Denies: Dysuria Musculoskeletal: Denies: Joint Pain, Joint Tenderness Skin: Denies: Rash, Wounds Neurological: Denies: Numbness, Tingling, Focal weakness Psychiatric: Denies: Anxiety, Depression Hematologic/ Lymphatic: Denies: Easy Bruising, Easy Bleeding VTE Information - Inpt Only VTE Present on Admission: No Patient Problems: Active and Suspected Problems (Last Reviewed 07/06/20 @ 11:17 by Leighann Contreras) Community acquired pneumonia (Acute) Sepsis (Acute) - Physical Exam Vitals/I&O's: Vital Signs Temp Pulse Resp BP Pulse Ox 99.8 F H 121 H 22 H 114/56 L 99 07/27/20 19:58 07/27/20 22:37 07/27/20 22:37 07/27/20 22:37 07/27/20 22:37 Oxygen Delivery Method Room Air Weight: 171 lb Body Mass Index (BMI) 32.3 Intake and Output for Last 24 Hours 07/25/20 07/26/20 07/27/20 23:59 23:59 23:59 Intake Total 1255 / 1255 Balance 1255 / 1255 General: Alert, Oriented x3, Cooperative, No apparent distress HEENT: Atraumatic, PERRLA, EOMI, Normocephalic Oral: Moist Mucosa Neck: Supple, No JVD Lungs: Clear to auscultation, Normal air movement, No rhonchi, No wheeze, No rales Cardiovascular: Regular Rhythm, Normal S1, Normal S2, No murmurs, Tachycardic Abdomen: Soft, Non Tender, Non-Distended, No Hepato-splenomegaly Extremities: No edema, Capillary Refill Less than 3 Seconds Skin: No rashes, No breakdown Neurological: Neuro grossly intact, Sensory exam intact to light touch and pain Psych/Mental Status: Normal Affect, Appropriate Laboratory Results 07/27/20 20:15: COVID-19 ([facility]) Not Detected 07/27/20 20:30: WBC 17.1 H, RBC 3.45 L, Hgb 10.9 L, Hct 32.1 L, MCV 93.0, MCH 31.6, MCHC 34.0, RDW Std Deviation 40.9, RDW Coeff of Kristin 12.0, Plt Count 196, MPV 11.7, Immature Gran % (Auto) 0.500, Neut % (Auto) 84.4 H, Lymph % (Auto) 9.4 L, Adams % (Auto) 4.2, Eos % (Auto) 1.3, Baso % (Auto) 0.2, Absolute Neuts (auto) 14.4 H, Absolute Lymphs (auto) 1.61, Nucleated RBC % 0 07/27/20 20:30: Sodium 137, Potassium 3.1 L, Chloride 106, Carbon Dioxide 23.0, Anion Gap 8, BUN 2 L, Creatinine 0.61, Estim Creat Clear Calc 108.24, Est GFR (MDRD) Af Amer 156, Est GFR (MDRD) Non-Af 129, BUN/Creatinine Ratio 3.3 L, Glucose 113 H, Calcium 8.4 L, Total Bilirubin 0.20, AST 9 L, ALT 17, Alkaline Phosphatase 80, Troponin I < 0.015, Total Protein 7.2, Albumin 3.1 L, Globulin 4.1, Albumin/Globulin Ratio 0.8 L 07/27/20 20:30: Lactic Acid 1.8 Assessment/Plan All Active Problems (Last Reviewed 07/06/20 @ 11:17 by Leighann Contreras) Community acquired pneumonia (Acute) Sepsis (Acute) Family history of defect (Acute) Supervision of high-risk (Acute) Tobacco use complicating (Acute) History of hemorrhage (Acute) (Acute) Genital herpes (Acute) Complete (Resolved) Early stage of (Resolved) Family history of defect (Resolved) Missed (Resolved) (Resolved) Thyroiditis (Resolved) 1. Sepsis secondary to early right lower lobe pneumonia -COVID test is negative, she denies any known exposures to any COVID positive people -We will obtain a respiratory panel -Sirs criteria based on white count, tachycardia, tachypnea plus source -Lactic acid only 1.8 -Continue with azithromycin and Rocephin -Blood cultures are pending -urine strep and Legionella pending 2. 21 weeks -Monitor DVT: Ambulation Inpatient E&M: 92355 Init Hosp L2
[2020-07-28 00:03] VITALS: BP 93/52; PULSE 118; PULSE 127; RESP 16; RESP 22; TEMP 36.9; O2SAT 97; O2SAT 98
--- NOTE | 2020-07-28 00:39 | ED.RN ---
WITH PATIENT PERMISSION THIS RN SPOKE WITH MOTHER- LISBET AND GAVE PATIENT UPDATES
[2020-07-28] MEDS: 0.9% Normal Saline 1,000 ML 999 ML IV (00:45)
[2020-07-28 00:46] VITALS: O2SAT 97; BMI 32.2
[2020-07-28 00:57] VITALS: BMI 32.3
[2020-07-28 01:00] VITALS: BP 112/53; PULSE 110; RESP 24; TEMP 37.2; O2SAT 99
[2020-07-28] MEDS: 0.9% Normal Saline 1,000 ML 100 ML IV (01:50)
--- NOTE | 2020-07-28 01:50 | NURSING ---
FHR 135 bpm via Doppler by this RN with patient resting in bed semi fowlers position.
[2020-07-28 06:03] LABS: Absolute Neutrophil Count 10.8 X10^3/uL (2.0-7.7); Basophil# 0.03 X10^3/uL; Basophil% 0.2 % (0-1); Eosinophil# 0.27 X10^3/uL; Hemoglobin 9.7 g/dL (12.0-15.0); Lymphocyte % 12.5 % (19-41); Mean Corp Hgb Conc 33.4 g/dL (32-36); Mean Corpuscular Hgb 31.6 pg (27.0-32.0); Mean Corpuscular Volume 94.5 fL (81-99); Mean Platelet Vol. 11.2 fl (6.2-12.0); Monocyte# 0.74 X10^3/uL; Monocyte% 5.4 % (0-10); NRBC Flagged by Analyzer 0 % (0-5); Neutrophil # 10.75 X10^3/uL (2.7-7.7); Neutrophil % 79.2 % (47-70); Platelet Count 168 K/mm3 (150-450); RBC Distribution Width SD 41.8 fl (35.1-43.9); Red Blood Count 3.07 M/mm3 (4.2-5.4); White Blood Count 13.6 K/mm3 (4.4-11.0)
[2020-07-28 06:25] VITALS: O2SAT 100
[2020-07-28 06:25] LABS: Anion Gap 5 (5-15); BUN 2 mg/dL (7-18); BUN/Creat Ratio 4.2 RATIO (10-20); Calcium,Total 8.2 mg/dL (8.5-10.1); Chloride 111 mmol/L (98-107); Creatinine, Serum 0.48 mg/dL (0.55-1.02); EST Glomerular Filtration Rate 172 mL/min (>60); Est Glom Filt Rate - Afr Amer 208 mL/min (>60); Estimated Creatinine Clearance 137.55 ml/min; Glucose 93 mg/dL (74-106); Potassium 3.5 mmol/L (3.5-5.1); Sodium Level 139 mmol/L (136-145)
[2020-07-28 06:26] VITALS: BP 104/67; PULSE 102; RESP 16; TEMP 36.8; O2SAT 100
--- NOTE | 2020-07-28 10:30 | PCM.DC ---
- Discharge Diagnoses Current Active Problems: Current Active and Chronic Problems (Last Reviewed 07/06/20 @ 11:17 by Leighann Contreras) Community acquired pneumonia (Acute) Sepsis (Acute) You will use the following diet at home:: Regular Your food should be the consistency of: Regular Discharge Activity: May Not Drive Weight Bearing Status: Weight bearing as tolerated Call your doctor if you observe: Fever of 101 or Higher, Coldness, Increased Pain, Numbness or Tingling, Change in Color, Inability to urinate, Inability to have a bowel movement, Shortness of breath, Dizziness, Fainting spells, Swelling in the ankles, Chest pain Allergies/Adverse Reactions: Allergies Sulfa (Sulfonamide Antibiotics) Allergy (Verified 07/27/20 20:02) Hives Medications to take at Discharge No122/Iron/Folic Acid [ Multi Tablet] 1 ea PO DAILY 07/27/20 Amoxicillin/Potassium Clav [Augmentin 875-125 Tablet] 1 ea PO BID #10 tab 07/28/20 Guaifenesin [Mucinex] 1,200 mg PO BID #14 tab 07/28/20 The following prescriptions were given: Amoxicillin/Potassium Clav [Augmentin 875-125 Tablet] 1 ea PO BID #10 tab Transmission Status: Pending to [facility] Guaifenesin [Mucinex] 1,200 mg PO BID #14 tab Transmission Status: Received by [facility] Primary Care Physician: Dusty Dewey PA [Primary Care Provider] - Please follow up with your Primary Care Physician in: in 2 weeks Test Results: Test results from this visit will be discussed in further detail at your follow-up appointment, if applicable. Please Follow Up With: Nancy Vizcaino MD When: for visit
[2020-07-28] MEDS: guaiFENesin 1,200 MG Tablet 1200 MG PO (10:47)
[2020-07-28 10:50] VITALS: BP 113/64; PULSE 98; RESP 20; TEMP 36.7; O2SAT 99
[2020-07-28] MEDS: 0.9% Saline Lock 10 ML Syringe IV (12:05)
--- NOTE | 2020-07-28 12:07 | DS.PCM_ITS ---
Discharge Date and Diagnosis - Problem List Patient Problems: Active and Suspected Problems (Last Reviewed 07/06/20 @ 11:17 by Leighann Contreras) Community acquired pneumonia (Acute) Sepsis (Acute) Date of Admission: 07/27/20 Date of Discharge: 07/28/20 - Primary Discharge Diagnosis Acute Problems: Active Problems (Last Reviewed 07/06/20 @ 11:17 by Leighann Contreras) Community acquired pneumonia (Acute) Sepsis (Acute) Right middle lobe community-acquired pneumonia probably bacterial superinfection on rhinovirus - Secondary Discharge Diagnosis Chronic Problems: Chronic Problems (Last Reviewed 07/06/20 @ 11:17 by Leighann Contreras) Multinodular goiter (Chronic) check tsh q trimester. TSH low on 05/12/20. Hospital Course and Treatment Summary of Care Provided: The patient is a 25 year old F female with 20 weeks was admitted with cough, shortness of breath loss of taste and smell and fever 100.4 Fahrenheit and leukocytosis 17,000. Her symptoms started about 2 days ago prior to admission with fever and malaise and cough. She denies any exposure to suspected COVID patient and did not attend any crowd or similar and uses mask. She states loss of smell and taste secondary to nasal congestion and probably rhinovirus infection. She was admitted on telemetry floor. COVID-19 PCR negative. Respiratory panel shows positive of rhinovirus. Urinary antigens are negative. Blood cultures x2 are pending. Chest x-ray independently reviewed and shows subtle hazy infiltrate in right middle lobe. Clinically she improved with resolution of tachycardia, fever, taste and smell sensation. No hypoxia or tachypnea. Patient was started on IV Rocephin and Zithromax and discharged on 5 more days of Augmentin. Discussed with the ID, Dr. Luna and he feels clinically COVID pneumonia unlikely as patient improved on antibiotic. Discharge medication reconciliation done. Discharge follow-up instructions completed. Discharge process discussed with the patient and all questions were answered to patient's satisfaction. Patient is discharged home. Patient advised to follow his OB Dr. Vizcaino. Total time spent, exact 35 minutes on discharge meds reconciliation, examination, coordination of care with nurses and ancillary staff, review of imaging and blood test and discussion with the patient on follow-up instructions Patient Problems: Active and Suspected Problems (Last Reviewed 07/06/20 @ 11:17 by Leighann Contreras) Community acquired pneumonia (Acute) Sepsis (Acute) - Physical Exam Vitals/I&O's: Vital Signs Temp Pulse Resp BP Pulse Ox 98.1 F 98 20 H 113/64 99 07/28/20 10:50 07/28/20 10:50 07/28/20 10:50 07/28/20 10:50 07/28/20 10:50 Oxygen Delivery Method Room Air Weight: 170 lb 13.732 oz Body Mass Index (BMI) 32.2 Intake and Output for Last 24 Hours 07/26/20 07/27/20 07/28/20 23:59 23:59 23:59 Intake Total 1255 / 1255 2258.33 / 2258.33 Balance 1255 / 1255 2258.33 / 2258.33 General: Alert, Oriented x3, Cooperative HEENT: Atraumatic, PERRLA, EOMI, Normocephalic Neck: Supple, No JVD, Negative Carotid Bruits Lungs: Clear to auscultation, Normal air movement, No rhonchi, No wheeze, No rales Cardiovascular: Regular rate, Regular Rhythm, Normal S1, Normal S2, No murmurs Abdomen: Bowel Sounds Present, Soft, Non Tender, Appropriate for Gestational Age - 21-week uterine size., - - : No dysuria or increased frequency or urgency. No renal angle suprapubic tenderness. Extremities: No edema, Capillary Refill Less than 3 Seconds Skin: No rashes, No breakdown Musculoskeletal: No Tenderness to Palpation of Joints or Extremities Neurological: Cranial nerves II-XII grossly intact, Deep Tendon Reflexes 2+/4 and Symmetrical, Neuro grossly intact Psych/Mental Status: Normal Affect, Appropriate Microbiology Past 72 Hours 07/27/20 20:15 Mucosa - Nasopharyngeal Respiratory Panel (PCR) - Final Rhinovirus 07/28/20 03:10 Urine, Clean Catch Legionella Antigen - Final 07/28/20 03:10 Urine, Clean Catch Streptococcus pneumoniae Antigen (M - Final Laboratory Results 07/27/20 20:15: COVID-19 (CON[facility]) Not Detected 07/27/20 20:30: WBC 17.1 H, RBC 3.45 L, Hgb 10.9 L, Hct 32.1 L, MCV 93.0, MCH 31.6, MCHC 34.0, RDW Std Deviation 40.9, RDW Coeff of Kristin 12.0, Plt Count 196, MPV 11.7, Immature Gran % (Auto) 0.500, Neut % (Auto) 84.4 H, Lymph % (Auto) 9.4 L, Dewey % (Auto) 4.2, Eos % (Auto) 1.3, Baso % (Auto) 0.2, Absolute Neuts (auto) 14.4 H, Absolute Lymphs (auto) 1.61, Nucleated RBC % 0 07/27/20 20:30: Sodium 137, Potassium 3.1 L, Chloride 106, Carbon Dioxide 23.0, Anion Gap 8, BUN 2 L, Creatinine 0.61, Estim Creat Clear Calc 108.24, Est GFR (MDRD) Af Amer 156, Est GFR (MDRD) Non-Af 129, BUN/Creatinine Ratio 3.3 L, Glucose 113 H, Calcium 8.4 L, Total Bilirubin 0.20, AST 9 L, ALT 17, Alkaline Phosphatase 80, Troponin I < 0.015, Total Protein 7.2, Albumin 3.1 L, Globulin 4.1, Albumin/Globulin Ratio 0.8 L 07/27/20 20:30: Lactic Acid 1.8 07/28/20 05:50: WBC 13.6 H, RBC 3.07 L, Hgb 9.7 L, Hct 29.0 L, MCV 94.5, MCH 31.6, MCHC 33.4, RDW Std Deviation 41.8, RDW Coeff of Kristin 12.0, Plt Count 168, MPV 11.2, Immature Gran % (Auto) 0.700, Neut % (Auto) 79.2 H, Lymph % (Auto) 12.5 L, Dewey % (Auto) 5.4, Eos % (Auto) 2.0, Baso % (Auto) 0.2, Absolute Neuts (auto) 10.8 H, Absolute Lymphs (auto) 1.70, Nucleated RBC % 0 07/28/20 05:50: Sodium 139, Potassium 3.5, Chloride 111 H, Carbon Dioxide 23.0, Anion Gap 5, BUN 2 L, Creatinine 0.48 L, Estim Creat Clear Calc 137.55, Est GFR (MDRD) Af Amer 208, Est GFR (MDRD) Non-Af 172, BUN/Creatinine Ratio 4.2 L, Glucose 93, Calcium 8.2 L Current Medications Acetaminophen (Tylenol) 650 mg PO Q6H PRN PRN PRN Reason: Pain Score 1-10/Temp > 100.7 F Guaifenesin (Mucinex) 1,200 mg PO BID [facility] Last Admin: 07/28/20 10:47 Dose: 1,200 mg Documented by: Sodium Chloride () 250 mls @ 15 mls/hr IV .[id number] PRN PRN Reason: Saline Flush Sodium Chloride () 250 mls @ 15 mls/hr IV .[id number] PRN PRN Reason: Additional IVPB Infusion Sodium Chloride () 1,000 mls @ 100 mls/hr IV .Q10H [facility] Last Infusion: 07/28/20 10:49 Dose: 0 mls/hr Documented by: Azithromycin 500 mg/ Dextrose 255 mls @ 250 mls/hr IV Q24 [facility] Stop: 07/29/20 11:02 Last Admin: 07/28/20 12:02 Dose: Not Given Documented by: Ceftriaxone Sodium 2 gm/ (Sodium Chloride) 50 mls @ 100 mls/hr IV Q24 [facility] Multivit/Folic Acid/Iron (Prenatabs Fa) 1 tablet PO DAILY@1200 [facility] Last Admin: 07/28/20 11:58 Dose: Not Given Documented by: Sodium Chloride () 10 - 40 ml IV UD PRN PRN Reason: SALINE FLUSH Discharge Activity: May Not Drive Weight Bearing Status: Weight bearing as tolerated Call your doctor if you observe: Fever of 101 or Higher, Coldness, Increased Pain, Numbness or Tingling, Change in Color, Inability to urinate, Inability to have a bowel movement, Shortness of breath, Dizziness, Fainting spells, Swelling in the ankles, Chest pain Home Medications: Medications to take at Discharge No122/Iron/Folic Acid [ Multi Tablet] 1 ea PO DAILY 07/27/20 Amoxicillin/Potassium Clav [Augmentin 875-125 Tablet] 1 ea PO BID #10 tab 07/28/20 Guaifenesin [Mucinex] 1,200 mg PO BID #14 tab 07/28/20 Following Prescriptions Were Given to Patient: Amoxicillin/Potassium Clav [Augmentin 875-125 Tablet] 1 ea PO BID #10 tab Transmission Status: Pending to [id number] Guaifenesin [Mucinex] 1,200 mg PO BID #14 tab Transmission Status: Received by [facility] Primary Care Physician: Dusty Dewey, PA [Primary Care Provider] - Please follow up with your Primary Care Physician in: in 2 weeks Please Follow Up With: Nancy Vizcaino MD When: for visit Medical Necessity - Tobacco Use Smoking Status: Current every day smoker Tobacco Use: Cigarettes Meaningful Use Info Meaningful Use Diagnoses (Choose all that apply): None applicable OBSV E&M: 88003 Observation care discharge
== END 2020-07-28 13:56 | disposition home or self-care (01) ==
LOC: ED 20:52 → MS3 07-28 00:16
PROVIDERS: Admitting Provider Family Medicine; Emergency Provider Emergency Medicine; PCP Physician Assistant; Visit Provider Internal Medicine
DX: O98.812 Other maternal infectious and parasitic diseases complicating pregnancy, second trimester (principal); A41.9 Sepsis, unspecified organism; O99.52 Diseases of the respiratory system complicating childbirth; J18.9 Pneumonia, unspecified organism; Z3A.21 21 weeks gestation of pregnancy; F17.210 Nicotine dependence, cigarettes, uncomplicated; O99.334 Smoking (tobacco) complicating childbirth
CPT/HCPCS: 36415; 71045; 80048; 80053; 83605; 84484; 85025; 87040; 87449; 87633; 87635; 93005; 96361; 96365; 96367; 99218; 99285; J7030; J7050; A4216; G0378; J0696; U0003

== ENCOUNTER → 2020-08-09 11:40 | Outpatient (CLI) | payer MEDICAID, SELFPAY ==
[2020-08-03 09:02] VITALS: BMI 30.4
--- NOTE | 2020-08-09 11:43 | US_ITS ---
STUDY: SECOND AND THIRD TRIMESTER OBSTETRICAL ULTRASOUND REASON FOR EXAM: Female, 25 years old. Anatomy. LMP: 03/06/2020 TECHNIQUE: Transabdominal TECHNICAL QUALITY: Adequate. PRIOR ULTRASOUND: 04/17/2020. FINDINGS: There is a single intrauterine fetus. The fetus is in a transverse lie with the head on the maternal right side. There is demonstrated cardiac activity with a heart rate of 137 bpm. There is a normal amniotic fluid volume. The largest amniotic fluid pocket measures 2.6 cm. The placenta is anterior in location and is not low lying. There are Grade 1 placental changes. The cervix measures 4.7 cm in length. The bilateral adnexal regions are normal. BIOMETRY: BPD: 5.3 cm: 22 weeks, 0 days HC: 19.83 cm: 22 weeks, 0 days AC: 17.48 cm: 22 weeks, 2 days FL: 4.05 cm: 23 weeks, 0 days CI: 79.61 FL/BPD: 76.56 FL/HC: 20.44 FL/AC: 23.19 HC/AC: 1.13 age by current US: 22 weeks, 0 days. CALLI by current US: 12/13/2020. Estimated weight: 523 grams, +/- 78 grams, 76 %. age by initial US: 22 weeks, 4 days. CALLI by initial US: 12/09/2020. Age by LMP: 22 weeks, 2 days. CALLI by LMP: 12/11/2020. ANATOMY: Gender: Female Cranium: Normal lateral ventricles. Normal choroid plexus. Normal cerebellum. Normal cisterna magna. Normal face, nose and lips. Chest: Normal 4-chamber heart. Abdomen/Pelvis: Normal diaphragm. Normal stomach. Normal abdominal wall. Normal cord insertion. Normal 3 vessel cord. Normal kidneys. Normal bladder. Spine: Normal cervical spine. Normal thoracic spine. Normal lumbar spine. Normal sacrum. Extremities: Normal bilateral upper extremities. Normal bilateral lower extremities. US/OB Anatomy Scan IMPRESSION: 1. Live single intrauterine at 22 weeks, 0 days. CALLI is 12/13/2020. There is adequate interval growth since prior ultrasound. 2. EFW 523 g. 3. Adequate amniotic fluid. 4. Anterior grade 1 placenta. 5. Transverse lie with head to the maternal right. 6. No visualized anatomic abnormality. Electronically Signed: New Cho DO at 16:01 EDT Tel [phone], Service support ,
== END ==
PROVIDERS: PCP Physician Assistant; Referring Provider Obstetrics & Gynecology; Visit Provider Obstetrics & Gynecology
DX: Z36.9 Encounter for antenatal screening, unspecified (principal); O32.2XX0 Maternal care for transverse and oblique lie, not applicable or unspecified; Z3A.22 22 weeks gestation of pregnancy
CPT/HCPCS: 76805

== ENCOUNTER → 2020-08-31 12:50 | Outpatient (CLI) | payer MEDICAID, SELFPAY ==
[2020-08-03 09:02] VITALS: BMI 30.4
[2020-08-31 13:05] LABS: Absolute Lymphocyte Count 2.48 X10^3/uL (0.83-4.51); Absolute Neutrophil Count 11.2 X10^3/uL (2.0-7.7); Basophil# 0.04 X10^3/uL; Basophil% 0.3 % (0-1); Eosinophil# 0.15 X10^3/uL; Hematocrit 35.3 % (37-47); Hemoglobin 11.7 g/dL (12.0-15.0); Lymphocyte # 2.48 X10^3/ul (4.0); Lymphocyte % 17.2 % (19-41); Mean Corp Hgb Conc 33.1 g/dL (32-36); Mean Corpuscular Hgb 31.4 pg (27.0-32.0); Mean Corpuscular Volume 94.6 fL (81-99); Mean Platelet Vol. 11.5 fl (6.2-12.0); Monocyte# 0.46 X10^3/uL; Monocyte% 3.2 % (0-10); NRBC Flagged by Analyzer 0 % (0-5); Neutrophil # 11.19 X10^3/uL (2.7-7.7); Neutrophil % 77.4 % (47-70); Platelet Count 222 K/mm3 (150-450); RBC Distribution Width CV 12.2 % (11.6-14.6); RBC Distribution Width SD 42.5 fl (35.1-43.9); Red Blood Count 3.73 M/mm3 (4.2-5.4); White Blood Count 14.5 K/mm3 (4.4-11.0)
[2020-08-31 13:16] LABS: Glucose Challenge Gest 1H 50g 128 mg/dL (70-140)
[2020-08-31 17:27] LABS: Thyroid Stim Hormone (TSH) 0.56 uIU/mL (0.358-3.74)
== END ==
PROVIDERS: PCP Physician Assistant; Referring Provider Obstetrics & Gynecology; Visit Provider Obstetrics & Gynecology
DX: Z34.90 Encounter for supervision of normal pregnancy, unspecified, unspecified trimester (principal); Z13.1 Encounter for screening for diabetes mellitus
CPT/HCPCS: 36415; 82950; 84443; 85025

== ENCOUNTER → 2020-11-14 | Outpatient (CLI) | payer MEDICAID, SELFPAY ==
[2020-11-14 09:32] VITALS: BMI 31.5
== END | disposition home or self-care (01) ==
LOC: LABSPEC 16:59
PROVIDERS: PCP Physician Assistant; Visit Provider Obstetrics & Gynecology
DX: Z34.90 Encounter for supervision of normal pregnancy, unspecified, unspecified trimester (principal)
CPT/HCPCS: 87081

== ENCOUNTER → 2020-11-30 10:31 | Outpatient (CLI) | payer MEDICAID, SELFPAY ==
[2020-11-14 09:32] VITALS: BMI 31.5
[2020-11-29 11:22] VITALS: BMI 31.9
== END ==
PROVIDERS: PCP Physician Assistant; Visit Provider Nurse Practitioner Women's Health
DX: Z20.822 Contact with and (suspected) exposure to COVID-19 (principal)
CPT/HCPCS: 87635; C9803; U0005; U0003

== ENCOUNTER 2020-12-05 03:15 | Inpatient (IN) | payer MEDICAID, SELFPAY ==
[2020-11-29 11:22] VITALS: BMI 31.9
[2020-12-04 14:04] VITALS: BMI 33.1
[2020-12-05] VITALS (84 sets, daily range): BP systolic 76–149; BP diastolic 34–80; PULSE 87–161; RESP 14–26; TEMP 35.6–37; O2SAT 88–987; BMI 34.3; BMI 35.2
[2020-12-05] MEDS: Cefazolin 2 GM in 0.9% Normal Saline 100 ML IV (03:23)
[2020-12-05 03:29] LABS: Absolute Lymphocyte Count 3.95 X10^3/uL (0.83-4.51); Absolute Neutrophil Count 11.9 X10^3/uL (2.0-7.7); Basophil# 0.09 X10^3/uL; Basophil% 0.5 % (0-1); Eosinophil# 0.14 X10^3/uL; Eosinophils% 0.8 % (0-5); Hematocrit 33.6 % (37-47); Hemoglobin 11.5 g/dL (12.0-15.0); Lymphocyte # 3.95 X10^3/ul (4.0); Mean Corp Hgb Conc 34.2 g/dL (32-36); Mean Corpuscular Hgb 31.5 pg (27.0-32.0); Mean Corpuscular Volume 92.1 fL (81-99); Mean Platelet Vol. 11.4 fl (6.2-12.0); Monocyte# 0.88 X10^3/uL; Monocyte% 5.1 % (0-10); NRBC Flagged by Analyzer 0 % (0-5); Neutrophil # 11.91 X10^3/uL (2.7-7.7); Neutrophil % 69.3 % (47-70); Platelet Count 166 K/mm3 (150-450); RBC Distribution Width CV 13.2 % (11.6-14.6); RBC Distribution Width SD 44.2 fl (35.1-43.9); Red Blood Count 3.65 M/mm3 (4.2-5.4); White Blood Count 17.2 K/mm3 (4.4-11.0)
[2020-12-05 03:55] LABS: International Normalized Ratio 1.1
[2020-12-05 03:56] LABS: Fibrinogen 213 mg/dl (203-444); Partial Thromboplast Time 30.9 Seconds (24.1-36.2)
--- NOTE | 2020-12-05 04:28 | HP.PCM_ITS ---
- Problem List (1) Placenta abruption, delivered, current hospitalization Status: Acute (2) Status post emergency section Status: Acute (3) Lab test negative for COVID-19 virus Status: Acute Comment: 12/04/20 (4) 37 weeks gestation of Status: Acute Comment: electronic test ordered 11/17/20 (scheduled for 11/30/2020 at 0955) (5) History of vaccination with combined yxbqrmvcsq-bmyrmac-ndvzstqge pertussis (DTaP) Status: Acute Comment: 09/20/20 (6) Family history of defect Status: Acute Comment: FOB has syndactyly (7) Supervision of high-risk Status: Acute Qualifiers: Comment: PRR CALLI 12/09/20 [facility] - [facility] Rogers anatomy US 08/09/20 within normal limits (8) Tobacco use complicating Status: Acute Qualifiers: Comment: encouraged cessation; /3 down to 2-3 cig per day (9) History of hemorrhage Status: Acute (10) Status: Acute Qualifiers: Comment: NIPT low risk, Carrier screening negative ; declines AFP. nl anatomy (11) Genital herpes Status: Acute Qualifiers: Comment: plan valtrex at 36 weeks (12) Multinodular goiter Status: Chronic Comment: check tsh q trimester. TSH low on 05/12/20. History Date of Admission: 07/27/20 Final CALLI: 12/08/20 Gestational age: 39 Weeks and 4 Days History of this : This is a 25 year-old, , at 39w4d weeks gestational age presents for acute onset of vaginal bleeding and abdominal pain. Upon presentation she had approximately 500 cc of blood vaginally per nursing and it was difficult to obtain heart rate due to being close to maternal therefore physician was called while patient was being taken back to the operating room to prepare for immediate if needed and IV started. Upon initial ultrasound evaluation in the OR by the physician no heart rate was seen and then there were 2 beats of spontaneous cardiac movement and therefore the decision was made to go proceed with a stat delivery. Medical History: Medical History (Last Reviewed 12/04/20 @ 14:04 by Leighann Contreras) Multinodular goiter (Chronic) E04.2 check tsh q trimester. TSH low on 05/12/20. Thyroiditis (Resolved) E06.9 Surgical History: Surgical History (Last Reviewed 12/04/20 @ 14:04 by Leighann Contreras) H/O dilation and curettage Z98.890 04/15/18 Hx of cholecystectomy Z90.49 S/P appendectomy Z90.49 Allergies Sulfa (Sulfonamide Antibiotics) Allergy (Verified 12/04/20 14:04) Hives Home Medications: Home Medications No122/Iron/Folic Acid [ Multi Tablet] 1 ea PO DAILY 07/27/20 valacyclovir 1 gram tablet 1,000 mg PO DAILY #30 tab 11/13/20 Smoking Status: Current every day smoker Alcohol: None Number of Fetus(es): 1 NST - FHR Rate Baby A Baseline: 2 spontaneous heart motions seen in 10 sec on US Uterine Activity:: irritability constant hypertonus History Past Pregnancies: Past Pregnancies Pregancy History 4 Elective abortions Hx Para 1 Spontaneous abortions 2 Hx # Term Pregnancies Ectopic pregnancies Hx # Pregnancies Multiple births # of living children 1 Past Pregnancies Del. Date Name GA/Weeks Outcome Route Bth Weight Gen Labor Lgth Anesthesia Del Locatn Provider FOB Unknown 2015 Abeba 41 live - full term 7lb 2 oun zandra Female epidural SM 04/15/18 Suction D&C Delivery Date: Blood Clot/ hemorrhage after delivery Labs: Mom's Problem List Problem Status Onset Code Placenta abruption, delivered, current hospitalization Acute O45.90 Status post emergency section Acute Z98.891 Lab test negative for COVID-19 virus Acute Z03.818 37 weeks gestation of Acute Z3A.37 History of vaccination with combined gtgcgnjgsm-skixzci-hptlvkcqu pertussis (DTaP) Acute Z92.29 Family history of defect Acute Z82.79 Supervision of high-risk Acute O09.90 Tobacco use complicating Acute O99.330 History of hemorrhage Acute Z87.59 Acute Z34.90 Genital herpes Acute A60.00 Multinodular goiter Chronic E04.2 Mom's Labs & Results 12/05/20 0212/05/20 03:25 03:25 03:25 WBC 17.2 H RBC 3.65 L Hgb 11.5 L Hct 33.6 L MCV 92.1 MCH 31.5 MCHC 34.2 RDW Std Deviation 44.2 H RDW Coeff of Kristin 13.2 Plt Count 166 MPV 11.4 Immature Gran % (Auto) 1.300 H Neut % (Auto) 69.3 Lymph % (Auto) 23.0 Forest % (Auto) 5.1 Eos % (Auto) 0.8 Baso % (Auto) 0.5 Absolute Neuts (auto) 11.9 H Absolute Lymphs (auto) 3.95 Nucleated RBC % 0 Kleihauer-Betke F Hgb PT INR APTT Fibrinogen Blood Type B POSITIVE Antibody Screen NEGATIVE Crossmatch See Detail 12/05/20 12/05/20 12/05/20 03:25 04:00 04:00 WBC 19.3 H RBC 2.64 L Hgb 8.6 L Hct 25.0 L MCV 94.7 MCH 32.6 H MCHC 34.4 RDW Std Deviation 45.5 H RDW Coeff of Kristin 13.4 Plt Count 146 L MPV 11.0 Immature Gran % (Auto) 2.300 H Neut % (Auto) 70.3 H Lymph % (Auto) 21.3 Forest % (Auto) 5.0 Eos % (Auto) 0.8 Baso % (Auto) 0.3 Absolute Neuts (auto) 13.6 H Absolute Lymphs (auto) 4.12 Nucleated RBC % 0 Kleihauer-Betke F Hgb PT 14.0 17.9 H INR 1.1 1.5 APTT 30.9 34.9 Fibrinogen 213 Pending Blood Type Antibody Screen Crossmatch 12/05/20 04:00 WBC RBC Hgb Hct MCV MCH MCHC RDW Std Deviation RDW Coeff of Kristin Plt Count MPV Immature Gran % (Auto) Neut % (Auto) Lymph % (Auto) Forest % (Auto) Eos % (Auto) Baso % (Auto) Absolute Neuts (auto) Absolute Lymphs (auto) Nucleated RBC % Kleihauer-Betke F Hgb Pending PT INR APTT Fibrinogen Blood Type Antibody Screen Crossmatch Social History Hx Smoking Yes: 2 cig/day Smoking Status Current every day smoker Review of Systems Constitutional: Denies: Fever, Night Sweats Eyes: Denies: Blurred vision Cardiovascular: Denies: Chest Pain Respiratory: Denies: Cough Gastrointestinal: Reports: Abdominal Pain, Nausea Genitourinary: Denies: Dysuria Gynecological: Reports: Vaginal bleeding, Vaginal discharge. Denies: Breast symptoms Physical Exam Vitals: Vital Signs Temp Pulse BP Pulse Ox 97.8 F 109 H 111/70 100 12/05/20 03:13 12/05/20 03:19 12/05/20 03:14 12/05/20 03:19 General: Alert, Cooperative HEENT: Atraumatic, Normocephalic Cardiovascular: Regular rate, Regular Rhythm Lungs: Normal air movement Abdomen: Gravid, Guarding, Rigid, Tender RUG DRY ROOM ATTENDANT: Normal external genitalia - heavy Estimated gestational size: Appropriate for gestational size Presentation: Cephalic Assessment/Plan All Active Problems (Last Reviewed 12/04/20 @ 14:04 by Leighann Contreras) Placenta abruption, delivered, current hospitalization (Acute) Status post emergency section (Acute) Lab test negative for COVID-19 virus (Acute) 37 weeks gestation of (Acute) History of vaccination with combined lvwwcruzzs-trpizlh-gcbwfozud pertussis (DTaP) (Acute) Family history of defect (Acute) Supervision of high-risk (Acute) Tobacco use complicating (Acute) History of hemorrhage (Acute) (Acute) Genital herpes (Acute) Community acquired pneumonia (Resolved) Complete (Resolved) Early stage of (Resolved) Family history of defect (Resolved) Missed (Resolved) (Resolved) Sepsis (Resolved) Thyroiditis (Resolved) This is a 25 year-old, , at 39w4d weeks gestational age presents with acute complete abruption. Patient admitted and proceeded with stat section for complete abruption and bradycardia please see operative note for details. At least 500 cc preop blood loss seen upon initial evaluation, 1800 cc at delivery. CBC type and screen coags and Kleihauer-Betke all sent. 2 Units type and crossed. Ancef and azithromycin given intraoperatively.
[2020-12-05 04:32] LABS: Absolute Lymphocyte Count 4.12 X10^3/uL (0.83-4.51); Absolute Neutrophil Count 13.6 X10^3/uL (2.0-7.7); Basophil# 0.06 X10^3/uL; Basophil% 0.3 % (0-1); Eosinophil# 0.16 X10^3/uL; Eosinophils% 0.8 % (0-5); Hemoglobin 8.6 g/dL (12.0-15.0); Lymphocyte # 4.12 X10^3/ul (4.0); Lymphocyte % 21.3 % (19-41); Mean Corp Hgb Conc 34.4 g/dL (32-36); Mean Corpuscular Hgb 32.6 pg (27.0-32.0); Mean Corpuscular Volume 94.7 fL (81-99); Monocyte# 0.97 X10^3/uL; NRBC Flagged by Analyzer 0 % (0-5); Neutrophil # 13.55 X10^3/uL (2.7-7.7); Neutrophil % 70.3 % (47-70); Platelet Count 146 K/mm3 (150-450); RBC Distribution Width CV 13.4 % (11.6-14.6); RBC Distribution Width SD 45.5 fl (35.1-43.9); Red Blood Count 2.64 M/mm3 (4.2-5.4); White Blood Count 19.3 K/mm3 (4.4-11.0)
[2020-12-05 04:40] LABS: International Normalized Ratio 1.5; Prothrombin Time (Protime)PT. 17.9 SECONDS (11.7-14.9)
[2020-12-05 04:41] LABS: Partial Thromboplast Time 34.9 Seconds (24.1-36.2)
[2020-12-05 04:47] LABS: Fibrinogen 85 mg/dl (203-444)
--- NOTE | 2020-12-05 04:50 | PCM.OPRPT ---
Problem List (1) Placenta abruption, delivered, current hospitalization Status: Acute (2) Status post emergency section Status: Acute (3) Lab test negative for COVID-19 virus Status: Acute Comment: 12/04/20 (4) 37 weeks gestation of Status: Acute Comment: electronic test ordered 11/17/20 (scheduled for 11/30/2020 at 0955) (5) History of vaccination with combined ollifrtdvc-mvfqtcs-ewcapzvxo pertussis (DTaP) Status: Acute Comment: 09/20/20 (6) Family history of defect Status: Acute Comment: FOB has syndactyly (7) Supervision of high-risk Status: Acute Qualifiers: Comment: PRR CALLI 12/09/20 [facility] - [facility] Rogers anatomy US 08/09/20 within normal limits (8) Tobacco use complicating Status: Acute Qualifiers: Comment: encouraged cessation; 9/3 down to 2-3 cig per day (9) History of hemorrhage Status: Acute (10) Status: Acute Qualifiers: Comment: NIPT low risk, Carrier screening negative ; declines AFP. nl anatomy (11) Genital herpes Status: Acute Qualifiers: Comment: plan valtrex at 36 weeks (12) Multinodular goiter Status: Chronic Comment: check tsh q trimester. TSH low on 05/12/20. Delivery Classification: Stat Final CALLI: 12/08/20 Gestational age: 39 Weeks and 4 Days cooker helper: Viola López - cs done before [employer]ARE[employer] PICKER present Special Medications: none Implants Used: none Date of Procedure: 12/05/20 Pre-Operative Diagnosis: abruption bradycardia Post-Operative Diagnosis: complete abruption Indications for : Suspected Abruptio Placenta, Nonreassuring Status Description of Procedure: Patient presented with vaginal bleeding and after initial evaluation it was difficult to ascertain heart rate therefore provider was called immediately and patient was taken back to the operating room where she was met by the provider. Initially no heartbeat was seen but after 10 seconds to spontaneous cardiac movements were seen and therefore the decision was made for a stat section. Betadine splash prep was done Askew catheter had already been placed after prepping and draping the abdomen and she was placed under general anesthesia and intubated Pfannenstiel skin incision was made with a scalpel and fascia was nicked in the midline and the incision extended laterally peritoneum entered digitally incision stretched laterally low transverse uterine incision was made and grossly bloody amniotic fluid was encountered the head was delivered atraumatically followed by the rest the infant cord was clamped and cut and the infant was passed off to nurse placenta delivered spontaneously and was noted to have a complete abruption with almost 1000 cc of clot total between intraamniotic and retroplacental blood clots present. Uterus was exteriorized and cleared of all clots and debris. Minimal extravasation of the blood into the myometrium was seen the uterus had good tone. Double layer closure with #1 Monocryl was made and abdomen was irrigated with Betadine wash and uterus returned to maternal abdomen. Gutters were cleared of all clots and debris and Melani placed over the incision. Peritoneum closed with 3-0 Monocryl fascia closed with 0 strata fix PDS suture. Subcutaneous tissue reapproximated with 3-0 Monocryl and skin closed with 4-0 Monocryl. Steri-Strips and silver Mepilex dressing applied. Intraoperative lab work had been sent. 2 units have been typed and crossed. Ancef and azithromycin were given intraoperatively for antibiotic prophylaxis. Counts were correct. Amniotic Membrane Rupture Type: Artificial Amniotic Fluid Description: Bloody Placenta Disposition: [facility] Specimen(s) sent to pathology: placenta Cord Entanglement: None Cord Vessel Description: 3 Vessels Esitmated Blood Loss (ml): 1800 Gender: Female (1 minute): 0 (5 minute): 3 - 5 until 30 minutes then 6 Delayed cord clamping: No Antibiotic Given: Ancef 2 grams IV x1, Zithromax 500 mg/5 mL X1 Pt instructed on risks of surgery: Bleeding, Anesthesia Risks, Infection, Need for Future C-Sections, Injury to surrounding structure(s) including bowel and bladder Complications: - - complete abruption anemia due to acute blood loss - Admit VTE Documentation VTE Present on Admission: No VTE Mechan Device Prophylaxis: SCD's Multi Select Codes - Urinary/Genital Urinary/Genital CPT Codes: 97857 Delivery [facility]
--- NOTE | 2020-12-05 05:26 | NURSING ---
Dr. Vizcaino notified and (present in room) of drop in pts BP to 76/35 and heart rate 135. Bleeding at this time WNL. order for Hespan received verbally. Radames Garcia CRNA also called and notified of change in vital signs.
[2020-12-05] MEDS: HYDROmorphone 1 MG/ML Syringe IV (05:33)
[2020-12-05] MEDS: Hetastarch 6% /Ns 30 GM/500 ML BAG IV (05:39)
--- NOTE | 2020-12-05 06:04 | NURSING ---
Call received from Dr. Vizcaino for an update on pt. Pts bp still in the mid 70s/40's and hr 137. states she wants to be notified if HR is 140 or higher and any change in bleeding. RN notified her blood is transfusing and Hespan.
--- NOTE | 2020-12-05 06:10 | NURSING ---
Dr. Vizcaino called back and asked RN to make sure there was 1 PRBC ready and to have FFP available in the hospital.
[2020-12-05] MEDS: Methylergonovine 0.2 MG/ML Ampul IM (06:35)
[2020-12-05] MEDS: 0.9% Normal Saline 1,000 ML 999 ML IV (06:35)
[2020-12-05] MEDS: Oxytocin 30 units/NS 500 ml 30 UNITS/500 ML IV.SOLN 999 UNITS IV (06:38)
--- NOTE | 2020-12-05 06:41 | NURSING ---
0641 Ely Mckinney RN called Pharmacy to order TXA. 0642 blood bank called to put 2 units of PRBC on hold and to confirm 2 units of FFP available in the hospital.
[2020-12-05] MEDS: miSOPROStol 200 MCG Tablet 1000 MCG RECTAL (06:55)
[2020-12-05] MEDS: fentaNYL 100 MCG/2 ML Ampul 50 MCG IV ×5 (06:59→23:15)
[2020-12-05 07:05] LABS: Absolute Lymphocyte Count 2.83 X10^3/uL (0.83-4.51); Absolute Neutrophil Count 23.9 X10^3/uL (2.0-7.7); Basophil# 0.07 X10^3/uL; Basophil% 0.2 % (0-1); Eosinophil# 0.03 X10^3/uL; Eosinophils% 0.1 % (0-5); Hemoglobin 7.9 g/dL (12.0-15.0); Lymphocyte # 2.83 X10^3/ul (4.0); Lymphocyte % 9.6 % (19-41); Mean Corp Hgb Conc 32.9 g/dL (32-36); Mean Corpuscular Hgb 31.2 pg (27.0-32.0); Mean Corpuscular Volume 94.9 fL (81-99); Mean Platelet Vol. 11.2 fl (6.2-12.0); Monocyte% 5.8 % (0-10); NRBC Flagged by Analyzer 0 % (0-5); Neutrophil # 23.94 X10^3/uL (2.7-7.7); Neutrophil % 81.7 % (47-70); POSITIVE DIFFERENTIAL YES; Platelet Count 148 K/mm3 (150-450); RBC Distribution Width CV 13.6 % (11.6-14.6); RBC Distribution Width SD 46.6 fl (35.1-43.9); Red Blood Count 2.53 M/mm3 (4.2-5.4); White Blood Count 29.3 K/mm3 (4.4-11.0)
[2020-12-05 07:10] LABS: Differential Indicated SCAN CRITERIA MET
[2020-12-05 07:16] LABS: Prothrombin Time (Protime)PT. 22.2 SECONDS (11.7-14.9)
[2020-12-05 07:17] LABS: Partial Thromboplast Time 37.6 Seconds (24.1-36.2)
[2020-12-05 07:25] LABS: Fibrinogen 59 mg/dl (203-444)
[2020-12-05] MEDS: 0.9% Saline Lock 10 ML Syringe IV ×8 (07:52→23:16)
[2020-12-05] MEDS: Ondansetron 4 MG/2 ML Vial IV (07:52)
[2020-12-05] MEDS: proCHLORPERazine 10 MG/2 ML Vial IV ×2 (08:06→16:43)
[2020-12-05] MEDS: Carboprost Tromethamine 250 MCG/ML Ampul IM (08:23)
--- NOTE | 2020-12-05 08:25 | NURSING ---
)633- charge nurse called to room due to upon palpation of uterus, uterus left of midline and pt laying in a pool of blood. Charge nurse to the room and bleeding continues vaginally. hemorrhage checklist initiated. see check list.
--- NOTE | 2020-12-05 08:46 | NURSING ---
0633- charge nurse Jignesh crook present in room to assess uterus and bleeding. vigorous fundal massage started. 0635- extra staff, bedside US, and hemmorhage cart to the room. additional medications brought to bedside. 0639- alarcon catheter replaced due to low urine output and uterus displaced to the left. 0643- Dr. Vizcaino and anethesia called to bedside. Manager Of Warehouse Ronak Berumen, Rn at bedside. 0644- Ronak berumen RN attempting third iv with lab draw. no success. 0651- Dr. Vizcaino at bedside. did a vaginal sweep and vaginal bleeding continues with clots noted. 0653 -Ronak Berumen, medical records supervisor discussing pt with ICU form maker, Dr Cortés, in regards to transferring to ICU 0701-Mepilex replaced by Dr. Vizcaino, minimal vaginal bleeding noted at this time. 0702- Dr. Vizcaino and Dr. Cortés agree to transfer pt to ICU. 0703- Abdominal binder applied. 0705- Pt being transferred to ICU.
--- NOTE | 2020-12-05 08:53 | CON.PCM_ITS ---
Problem List (1) Hemorrhagic shock Status: Acute (2) DIC (disseminated intravascular coagulation) Status: Acute (3) Placenta abruption, delivered, current hospitalization Status: Acute (4) Status post emergency section Status: Acute (5) 37 weeks gestation of Status: Acute Comment: electronic test ordered 11/17/20 (scheduled for 11/30/2020 at 0955) (6) Tobacco use complicating Status: Acute Qualifiers: Comment: encouraged cessation; /3 down to 2-3 cig per day (7) History of hemorrhage Status: Acute (8) Genital herpes Status: Acute Qualifiers: Comment: plan valtrex at 36 weeks (9) Multinodular goiter Status: Chronic Comment: check tsh q trimester. TSH low on 05/12/20. Reason for Consult Date of Consultation: 12/05/20 Reason for Consultation: DIC and acute blood loss anemia History of Present Illness: The patient is a 25 year old F, with past medical history listed below, who presented to [facility] on 12/05/2020 secondary to acute onset of vaginal bleeding and abdominal pain. Upon presentation, patient was reportedly noted to have 500 cc of vaginal blood and it was difficult to obtain heart rate. Patient was prepped for an emergent section. Reportedly had surgery, patient was noted to have a placental abruption with an estimated blood loss of approximately 1-1/2 L. Patient was given Ancef and azithromycin intraoperatively. The baby was reportedly sent to [facility] and patient was monitored in the [facility]'s Pavilion. This morning at approximately 7 AM, I was called stat to the women's Pavilion secondary to hemorrhage. Patient reportedly started to have vaginal hemorrhage of approximately 1 L of blood. Patient was noted to be tachycardic with decreased blood pressures. Labs overnight had shown dropping fibrinogen and blood counts. After assessment, it was determined the patient should be monitored in the intensive care unit for hemodynamic stabilization. Patient not able to provide much additional history outside a computer record. Patient is having significant nausea and abdominal pain at this time despite receiving Dilaudid and fentanyl. Patient had also received Zofran earlier in the day. Patient reportedly had not had a similar type of presentation. Patient did not have any objections to blood products on my evaluation. Patient not interested in giving a full review of systems, but reportedly does have a smoking history with no formal diagnosis of asthma or COPD. In total, the patient has 4 units of packed red blood cells, 2 units of FFP, 1 unit of platelets and 1 unit of cryoprecipitate currently ordered. Past Medical History Past Medical History (Chronic Problems): Chronic Problems (Last Reviewed 12/04/20 @ 14:04 by Leighann Contreras) Multinodular goiter (Chronic) check tsh q trimester. TSH low on 05/12/20. Medical History: Medical History (Last Reviewed 12/04/20 @ 14:04 by Leighann Contreras) Multinodular goiter (Chronic) E04.2 check tsh q trimester. TSH low on 05/12/20. Thyroiditis (Resolved) E06.9 Allergies Sulfa (Sulfonamide Antibiotics) Allergy (Verified 12/05/20 08:36) Hives Home Medications: Ambulatory Orders Medication Instructions Recorded No122/Iron/Folic Acid 1 ea PO DAILY 07/27/20 [ Multi Tablet] valacyclovir 1 gram tablet 1,000 mg PO DAILY #30 tab 11/13/20 Surgical History: Surgical History (Last Reviewed 12/04/20 @ 14:04 by Leighann Contreras) H/O dilation and curettage Z98.890 04/15/18 Hx of cholecystectomy Z90.49 S/P appendectomy Z90.49 Surgical History: appendectomy, cholecystectomy Smoking Status: Current every day smoker Alcohol: None Review of Systems Unable to obtain accurate/complete ROS d/t: Acute condition Patient Problems: Active and Suspected Problems (Last Reviewed 12/04/20 @ 14:04 by Leighann Contreras) Placenta abruption, delivered, current hospitalization (Acute) Status post emergency section (Acute) Lab test negative for COVID-19 virus (Acute) 12/04/20 37 weeks gestation of (Acute) electronic test ordered 11/17/20 (scheduled for 11/30/2020 at 0955) History of vaccination with combined bquybvtgcm-ikbdshv-ycmmdwgni pertussis (DTaP) (Acute) 09/20/20 Family history of defect (Acute) FOB has syndactyly Supervision of high-risk (Acute) PRR CALLI 12/09/20 Girl - Carmelita Echeverriaa Rogers anatomy US 08/09/20 within normal limits Tobacco use complicating (Acute) encouraged cessation; 07/06 down to 2-3 cig per day History of hemorrhage (Acute) (Acute) NIPT low risk, Carrier screening negative ; declines AFP. nl anatomy Genital herpes (Acute) plan valtrex at 36 weeks Objective: Patient did have a CTA completed in 2018 that showed normal parenchyma and mediastinal structures. Patient was scheduled to see Dr. Wilkes (pulmonology) as an outpatient, but did not attend the visit. - Physical Exam Vitals/I&O's: Vital Signs Temp Pulse Resp BP Pulse Ox 36.7 C 138 H 20 H 106/56 L 100 12/05/20 06:42 12/05/20 06:42 12/05/20 06:42 12/05/20 06:42 12/05/20 06:42 Oxygen Flow Rate (L/min) 2 Oxygen Delivery Method Nasal Cannula Weight: 82.372 kg Body Mass Index (BMI) 34.3 Intake and Output for Last 24 Hours 12/03/20 12/04/20 12/05/20 23:59 23:59 23:59 Intake Total 2675 / 2675 Output Total 80 / 80 Balance 2595 / 2595 General: Alert, Oriented x3, Cooperative, - - Moderate or severe distress on initial evaluation. Pale HEENT: Atraumatic, PERRLA, EOMI, Normocephalic, - - Pale conjunctiva. Oral: No Gingival or Mucosal Lesions/ Ulcerations, Dry Mucosa Neck: Supple, No JVD, No Nodes, Trachea Midline, - - Immediate collapse of IJ with respiration Lungs: Clear to auscultation, Normal air movement, No rhonchi, No wheeze, No rales Cardiovascular: Normal S1, Normal S2, No murmurs, No rub noted, No Gallop, Tachycardic Abdomen: Bowel Sounds Not Present, Gravid, Distended, Tender - No rebound. Significant pain at incision site Extremities: No clubbing, No cyanosis, Edema - Trace to 1+ lower extremity Skin: Incision - Slight oozing noted on the right side of the incision, but no fluctuance, induration or erythema appreciated Musculoskeletal: No Tenderness to Palpation of Joints or Extremities Lymphatic: No Cervical, Supraclavicular, or Inguinal Adenopathy Neurological: Cranial nerves II-XII grossly intact, Neuro grossly intact, Motor Exam 5/5 strength throughout Psych/Mental Status: Anxious, Restless Laboratory Results 12/05/20 03:25: WBC 17.2 H, RBC 3.65 L, Hgb 11.5 L, Hct 33.6 L, MCV 92.1, MCH 31.5, MCHC 34.2, RDW Std Deviation 44.2 H, RDW Coeff of Kristin 13.2, Plt Count 166, MPV 11.4, Immature Gran % (Auto) 1.300 H, Neut % (Auto) 69.3, Lymph % (Auto) 23.0, [place] % (Auto) 5.1, Eos % (Auto) 0.8, Baso % (Auto) 0.5, Absolute Neuts (auto) 11.9 H, Absolute Lymphs (auto) 3.95, Nucleated RBC % 0 12/05/20 03:25: Blood Type B POSITIVE, Antibody Screen NEGATIVE 12/05/20 03:25: Crossmatch See Detail 12/05/20 03:25: PT 14.0, INR 1.1, APTT 30.9, Fibrinogen 213 12/05/20 03:25: Crossmatch See Detail 12/05/20 04:00: WBC 19.3 H, RBC 2.64 L, Hgb 8.6 L, Hct 25.0 L, MCV 94.7, MCH 32.6 H, MCHC 34.4, RDW Std Deviation 45.5 H, RDW Coeff of Kristin 13.4, Plt Count 146 L, MPV 11.0, Immature Gran % (Auto) 2.300 H, Neut % (Auto) 70.3 H, Lymph % (Auto) 21.3, [place] % (Auto) 5.0, Eos % (Auto) 0.8, Baso % (Auto) 0.3, Absolute Neuts (auto) 13.6 H, Absolute Lymphs (auto) 4.12, Nucleated RBC % 0 12/05/20 04:00: PT 17.9 H, INR 1.5, APTT 34.9, Fibrinogen 85 L* 12/05/20 04:00: Vicentaauer-Betke F Hgb Pending 12/05/20 06:50: WBC 29.3 H, RBC 2.53 L, Hgb 7.9 L, Hct 24.0 L, MCV 94.9, MCH 31.2, MCHC 32.9, RDW Std Deviation 46.6 H, RDW Coeff of Kristin 13.6, Plt Count 148 L, MPV 11.2, Immature Gran % (Auto) 2.600 H, Neut % (Auto) 81.7 H, Lymph % (Auto) 9.6 L, [place] % (Auto) 5.8, Eos % (Auto) 0.1, Baso % (Auto) 0.2, Absolute Neuts (auto) 23.9 H, Absolute Lymphs (auto) 2.83, Nucleated RBC % 0, Differential Comment COMMENT, Diff Path Review March foll 12/05/20 06:50: PT 22.2 H, INR 2.0, APTT 37.6 H, Fibrinogen 59 L* Current Medications Acetaminophen (Acetaminophen 500 Mg Tablet) 1,000 mg PO Q6 [facility] Last Admin: 12/05/20 08:03 Dose: Not Given Documented by: Bisacodyl (Bisacodyl 10 Mg Suppository) 10 mg RECTAL UD PRN PRN Reason: If no BM Enoxaparin Sodium (Enoxaparin 40 Mg/0.4 Ml Syringe) 40 mg SC DAILY [facility] Hydrocortisone (Hydrocortisone 2.5% Crm) 1 applic TOPICAL TID PRN PRN; Protocol PRN Reason: Discomfort Hydromorphone HCl (Hydromorphone 1 Mg/Ml Syringe) 0.5 - 1.5 mg IV Q3H PRN PRN PRN Reason: Pain Score 4-10 Stop: 12/06/20 05:16 Last Admin: 12/05/20 05:33 Dose: 1 mg Documented by: Lactated Ringer's () 1,000 mls @ 100 mls/hr IV .Q10H [facility] Last Admin: 12/05/20 08:04 Dose: Not Given Documented by: Cefazolin Sodium () 1 gm in 50 mls @ 150 mls/hr IV Q8H [facility] Stop: 12/05/20 19:49 Ketorolac Tromethamine (Ketorolac 30 Mg/Ml Syringe) 30 mg IV Q6H [facility] Stop: 12/06/20 04:01 Methylergonovine Maleate (Methylergonovine 0.2 Mg/Ml Ampul) 0.2 mg IM X1 PRN PRN Reason: Uterine Atony Last Admin: 12/05/20 06:35 Dose: 0.2 mg Documented by: Naproxen (Naproxen 250 Mg Tablet) 500 mg PO Q8H [facility] Ondansetron HCl (Ondansetron 4 Mg/2 Ml Vial) 4 mg IV Q4H PRN PRN PRN Reason: Nausea Last Admin: 12/05/20 07:52 Dose: 4 mg Documented by: Oxycodone HCl (Oxycodone 5 Mg Tablet) 5 - 10 mg PO Q4H PRN PRN PRN Reason: Pain Score 4-10 Prochlorperazine Edisylate (Prochlorperazine 10 Mg/2 Ml Vial) 10 mg IV Q6H PRN PRN PRN Reason: NAUSEA Last Admin: 12/05/20 08:06 Dose: 10 mg Documented by: Senna/Docusate Sodium (Senna/Docusate Sodium 1 Tablet) 0 tablet PO DAILY [facility] Simethicone (Simethicone 80 Mg Tablet) 80 mg PO PCHS PRN PRN Reason: Indigestion/stomach pain Sodium Chloride (0.9% Saline Lock 10 Ml Syringe) 5 - 15 ml IV UD PRN PRN Reason: SALINE FLUSH Last Admin: 12/05/20 08:07 Dose: 10 ml Documented by: Assessment/Plan Active and Suspected Problems (Last Reviewed 12/04/20 @ 14:04 by Leighann Contreras) Placenta abruption, delivered, current hospitalization (Acute) Status post emergency section (Acute) Lab test negative for COVID-19 virus (Acute) 12/04/20 37 weeks gestation of (Acute) electronic test ordered 11/17/20 (scheduled for 11/30/2020 at 0955) History of vaccination with combined mzocgpuger-igsvwhs-wyaoygrep pertussis (DTaP) (Acute) 09/20/20 Family history of defect (Acute) FOB has syndactyly Supervision of high-risk (Acute) PRR CALLI 12/09/20 Girl - Carmelita [facility] anatomy US 08/09/20 within normal limits Tobacco use complicating (Acute) encouraged cessation; 9/3 down to 2-3 cig per day History of hemorrhage (Acute) (Acute) NIPT low risk, Carrier screening negative ; declines AFP. nl anatomy Genital herpes (Acute) plan valtrex at 36 weeks RECOMMENDATIONS: 1. Complete blood products as ordered 2. Reassess fibrinogen and CBC following transfusions 3. Hold anticoagulation for DVT prophylaxis 4. Okay to use SCDs from my perspective 5. Place central line for access IMPRESSIONS: 1. Disseminated intravascular coagulopathy secondary to placental abruption Patient's last fibrinogen was significantly depressed. Patient with multiple blood products currently ordered. Will transfuse current blood products and then reassess with fibrinogen and CBC. Anticipate spontaneous resolution following . Patient may have an element of consumptive coagulopathy also. Anticipate checking CBC and fibrinogen every 6 until stabilized. Central line will be placed to allow for pressor agents if necessary. Patient does appear to be significantly volume depleted at this time. 2. Hemorrhagic shock secondary to acute blood loss anemia secondary to #1 Patient with approximately 2-1/2 L of blood loss thus far. Incision with a slow bleed, but ultrasound by ELECTRIC CRANE OPERATOR shows cessation should have been obtained. We will continue with blood product transfusions as currently ordered and then monitor every 6 with plans to keep hemoglobin greater than eight at all times. May give another cryoprecipitate if fibrinogen continues to deplete despite delivery of the fetus. 3. 39-week status post postop day #1 Incision site appears to be okay at this time. ELECTRIC CRANE OPERATOR is following. Recommend fentanyl versus Dilaudid for pain control. Incentive spirometer. Hold on ambulation for now given hemodynamics. Okay to use SCDs for DVT prophylaxis from my perspective, but would avoid Lovenox or heparin. 4. Genital herpes/tobacco use during /obesity Complicates care, management, recovery and prognosis. Hold on nicotine replacement if possible given possibility of breast-feeding TIME: 35 minutes critical care time spent addressing patient's DIC, hemorrhagic shock, acute blood loss anemia, review of all data and collaboration with care team (7 AM to 9 AM) [phone]: [id number] Critical care first hour
--- NOTE | 2020-12-05 08:56 | RAD_ITS ---
STUDY: X-RAY CHEST REASON FOR EXAM: Female, 25 years old. POST LINE PLACEMENT TECHNIQUE: Single AP portable view of the chest. COMPARISON: Comparison is made with prior examination dated 07/27/2020. FINDINGS: A right sided central venous catheter has been placed. The tip is in the right atrium. EKG electrodes are seen. Mild increased markings at the lung bases suggestive of bibasilar atelectasis. There is no demonstrated pleural abnormality. Normal size heart. Normal mediastinum and luis. Normal visualized pulmonary arteries. Normal visualized aortic arch and descending thoracic aorta. Normal visualized thoracic spine. Normal visualized ribs, clavicles, and shoulders. There is no demonstrated abnormality of the visualized soft tissue structures of the upper abdomen. RAD/CXR for Line Placement IMPRESSION: The tip of the right central venous catheter is in the right atrium. Mild increased markings at the lung bases suggestive of bibasilar atelectasis. Electronically Signed: Kenyon Jackson MD at 9:29 EST , Service support ,
--- NOTE | 2020-12-05 09:14 | PCM.OPRPT ---
Report of Operation Date of Procedure: 12/05/20 Surgery/Procedure Performed:: Triple-lumen catheter insertion Description of Surgical Findings:: Central line placement procedure note Indication: IV access/hemodynamic instability/vasoactive medications Procedure: A time-out was completed to verify correct patient, indication, medication allergies, procedure, coagulation studies, informed consent signed, and equipment needed. The patient was placed in the supine position for a central line placement to the rt IJ vein. The patients rt neck was prepped using chlorhexidine and a full body sterile drape was applied. 1% lidocaine was used to anesthetize the surrounding skin. A 7fr 16 cm blue guard triple lumen catheter introduced into the internal jugular vein using the modified Seldinger technique with the assistance of ultrasound. The catheter was threaded smoothly over the guidewire, the guidewire was removed easily, nonpulsatile blood returned. All ports were aspirated of air and flushed with sterile saline. The catheter was sutured in place and covered with an occlusive dressing impregnated with chlorhexidine. Post-procedure: The patient tolerated the procedure well. Vital signs remained stable. EBL 0cc. No complications. Chest X Ray ordered to confirm tip placement and the absence of pneumothorax. Procedures: [id number] Insert Non-tunnel CV Cath
--- NOTE | 2020-12-05 09:58 | PN_ITS ---
Progress Note Late entry?patient evaluated at 6:40 AM and at 9:20 AM. Provider called due to increase in vaginal bleeding and worsening hypotension and tachycardia despite blood products being given. Upon evaluation patient had delayed hemorrhage suspected to be due to coagulopathy and some uterine atony. Patient had already been given 1 unit PRBC 1 unit FFP and 500 cc of Hespan and therefore 3 additional units of PRBCs 2 units of FFP, a unit of cryo, and a unit of platelets were ordered to be transfused. Bimanual massage was used to evacuate the uterus the lining was thin and on ultrasound there was no free fluid which lowered intra-abdominal bleeding suspicion. ICU was consulted and management professional was present. Methergine, Hemabate, Cytotec and tranexamic acid were given in addition to Pitocin and bimanual massage. Patient transferred to ICU for more critical care management. Second IV was already in place and plan for central line placement also. STROKE Vital Signs/Narrative: Vital Signs Temp Pulse Resp BP Pulse Ox 12/05/20 06:42 98.1 F 138 H 20 H 106/56 L 100 12/05/20 06:32 97.9 F 151 H 18 111/61 97 12/05/20 06:27 97.9 F 128 H 20 H 102/58 L 100 12/05/20 06:20 97.9 F 130 H 18 102/58 L 100 12/05/20 06:05 97.8 F 137 H 20 H 76/43 L 98
[2020-12-05 11:01] LABS: Kleihauer-Betke Negative
[2020-12-05] MEDS: Lactated Ringers 1,000 ML 999 ML IV (11:15)
[2020-12-05] MEDS: Cefazolin 1 GM/50 ML BAG IV ×2 (12:38→20:06)
[2020-12-05] MEDS: Lactated Ringers 1,000 ML 100 ML IV (12:38)
[2020-12-05 13:31] LABS: Pathologist Review Reviewed
[2020-12-05 13:33] LABS: Absolute Lymphocyte Count 1.97 X10^3/uL (0.83-4.51); Absolute Neutrophil Count 16.5 X10^3/uL (2.0-7.7); Basophil# 0.04 X10^3/uL; Basophil% 0.2 % (0-1); Hematocrit 21.9 % (37-47); Hemoglobin 7.4 g/dL (12.0-15.0); Lymphocyte # 1.97 X10^3/ul (4.0); Lymphocyte % 9.7 % (19-41); Mean Corp Hgb Conc 33.8 g/dL (32-36); Mean Corpuscular Hgb 29.8 pg (27.0-32.0); Mean Corpuscular Volume 88.3 fL (81-99); Mean Platelet Vol. 10.8 fl (6.2-12.0); Monocyte# 1.12 X10^3/uL; Monocyte% 5.5 % (0-10); NRBC Flagged by Analyzer 0 % (0-5); Neutrophil # 16.49 X10^3/uL (2.7-7.7); Neutrophil % 81.6 % (47-70); Platelet Count 108 K/mm3 (150-450); Red Blood Count 2.48 M/mm3 (4.2-5.4); White Blood Count 20.2 K/mm3 (4.4-11.0)
[2020-12-05 13:41] LABS: International Normalized Ratio 1.3; Prothrombin Time (Protime)PT. 15.6 SECONDS (11.7-14.9)
[2020-12-05 13:57] LABS: Partial Thromboplast Time 28.6 Seconds (24.1-36.2)
[2020-12-05 14:20] LABS: Fibrinogen 239 mg/dl (203-444)
[2020-12-05] MEDS: Senna/Docusate Sodium 1 Tablet PO (14:31)
[2020-12-05] MEDS: Acetaminophen 650 MG/20 ML UDC 1000 MG PO ×2 (15:28→20:17)
--- NOTE | 2020-12-05 15:52 | NURSING ---
All blood products were given at 999 ml/hr or off the pump as per blood product infusion protocol.
--- NOTE | 2020-12-05 19:39 | PCM.PN.BLA ---
Progress Note patient seen, pain controlled. discomfort with alarcon so it was removed. no CP SOB still tachycardic and intermittent hypotensive, will give 2 additional PRBCs. continue to monitor. attempted to contact to update him. reviewed with nursing plan of care, continue product replacement and circulatory support. minimal vaginal bleeding. STROKE Vital Signs/Narrative: Vital Signs Temp Pulse Resp BP Pulse Ox 12/05/20 18:45 135 H 124/58 H 12/05/20 18:30 96.4 F L 127 H 108/58 L 12/05/20 18:15 96.7 F L 144 H 109/64 12/05/20 18:00 96.7 F L 140 H 22 H 95/50 L 98 12/05/20 17:45 145 H 99/52 L 12/05/20 17:30 142 H 92/52 L 12/05/20 17:15 146 H 89/47 L 12/05/20 17:00 141 H 19 H 99/42 L 100 12/05/20 16:45 149 H 120/53 L 12/05/20 16:30 131 H 20 H 114/48 L 100 12/05/20 16:15 141 H 21 H 95/44 L 100 12/05/20 16:00 147 H 19 H 87/41 L 99 12/05/20 15:45 141 H 21 H 95/47 L 100
--- NOTE | 2020-12-05 19:55 | NURSING ---
This RN in ICU to perform a focused assessment on pt. and to assist her with pumping. This RN encouraged pt. to pump for 10 minutes, but she stated that the last time 10 minutes made my boobs burn. This RN explained the importance of stimulation and pt. pumped (full assist) for 7 minutes on both sides.
[2020-12-05 21:48] LABS: Absolute Lymphocyte Count 2.19 X10^3/uL (0.83-4.51); Absolute Neutrophil Count 13.9 X10^3/uL (2.0-7.7); Basophil# 0.03 X10^3/uL; Basophil% 0.2 % (0-1); Hematocrit 20.9 % (37-47); Hemoglobin 7.4 g/dL (12.0-15.0); Lymphocyte # 2.19 X10^3/ul (4.0); Lymphocyte % 12.5 % (19-41); Mean Corp Hgb Conc 35.4 g/dL (32-36); Mean Corpuscular Hgb 30.1 pg (27.0-32.0); Monocyte# 0.92 X10^3/uL; Monocyte% 5.2 % (0-10); NRBC Flagged by Analyzer 0 % (0-5); Neutrophil # 13.94 X10^3/uL (2.7-7.7); Neutrophil % 79.4 % (47-70); POSITIVE COUNT YES; Platelet Count 80 K/mm3 (150-450); RBC Distribution Width CV 14.9 % (11.6-14.6); RBC Distribution Width SD 46.2 fl (35.1-43.9); Red Blood Count 2.46 M/mm3 (4.2-5.4); White Blood Count 17.6 K/mm3 (4.4-11.0)
[2020-12-05 21:56] LABS: Differential Indicated SCAN CRITERIA MET
[2020-12-05 21:58] LABS: Anion Gap 6 (5-15); BUN 15 mg/dL (7-18); BUN/Creat Ratio 9.8 RATIO (10-20); Calcium,Total 6.7 mg/dL (8.5-10.1); Chloride 105 mmol/L (98-107); Creatinine, Serum 1.53 mg/dL (0.55-1.02); EST Glomerular Filtration Rate 44 mL/min (>60); Est Glom Filt Rate - Afr Amer 54 mL/min (>60); Estimated Creatinine Clearance 43.15 ml/min; Glucose 117 mg/dL (74-106); Potassium 5.4 mmol/L (3.5-5.1); Sodium Level 134 mmol/L (136-145)
[2020-12-05 22:11] LABS: Differential Comment SCANNED; Platelet Estimate MOD DEC (ADEQ)
--- NOTE | 2020-12-05 22:51 | NURSING ---
Late Entry 12/05/[address] Vizcaino at bedside and informed of replacement of alarcon catheter d/t scant output and fundus displaced; informed that after replacement, no output noted; Dr. Vizcaino denies bladder scan at this time or further interventions.
--- NOTE | 2020-12-05 23:00 | NURSING ---
After speaking with Dr. Cortés I called and spoke with Ely from OB to update her. I spoke with her about my conversation with Dr. Cortés on pt getting an additional 2 units of PRBCs and 1 unit of platelets. Ely said that she would update Dr. Vizcaino about new orders for patient.
--- NOTE | 2020-12-05 23:35 | NURSING ---
This RN on unit to assist pt. with pumping and do a fundal and lochia check. Uterus firm at u-1, abdomen still rigid and rounded. No new drainage noticed on mepilex dressing. Pt. pumped both breasts for 10 minutes. This RN called Dr. Vizcaino to give an update from the ICU nurses about pt's current lab work. Pt. denies further needs from this RN at this time.
[2020-12-06] VITALS (36 sets, daily range): BP systolic 103–164; BP diastolic 43–90; PULSE 80–142; RESP 16–23; TEMP 36.1–37.1; O2SAT 90–96
--- NOTE | 2020-12-06 00:40 | NURSING ---
2345- pt's mother, Belinda called desk stating her daughter text her saying we were giving two more units of PRBCs and another unit of platelets. Belinda voiced concerns and questions why we were giving more PRBCs and platelets and what her lab results were. Belinda stated I want to talk to Dr. Cortés now because I dont think this is right. She shouldn't be receiving all of this blood and her lab values not improving. This RN did explain at length pt's condition, vital signs stable, body response, and education on DIC. Belinda remained persistent on talking with Dr. Cortés, this RN communicated Dr. Cortés was not in the building but is available via phone for us to call. Belinda stated Well that's funny because he told us he would be there in his office right outside her room all night. This RN explained his schedule and that he is available by phone and if there was an emergency he would come in. Belinda voiced concerns for transferring patient and wanted to talk with Dr. Cortés. 2352- This RN called Dr. Cortés and explained the situation. Dr. Cortés stated I told her I would be in office all day, available by phone through the night. I told her earlier today if her labs did not improve we may be giving more blood products overnight. Patient is stable, vitals are stable not on pressors, not concerned at this point, we will get labs in the AM and I will be in to see first thing in the morning. 0000- This RN called Belinda back, communicated to her what Dr. Cortés stated, emotional support provided, discussed POC. Belinda agreeable.
[2020-12-06] MEDS: fentaNYL 100 MCG/2 ML Ampul 50 MCG IV (01:53)
[2020-12-06] MEDS: proCHLORPERazine 10 MG/2 ML Vial IV ×2 (01:53→14:05)
[2020-12-06] MEDS: Lactated Ringers 1,000 ML 100 ML IV (02:19)
--- NOTE | 2020-12-06 03:29 | NURSING ---
Charles in lab called the floor to notify this RN he has been on and off the phone with [facility] several times and according to [facility], they have called [place], [place], and [place] for platelets and will not have them until the morning, unable to give ETA.
--- NOTE | 2020-12-06 04:02 | NURSING ---
0400- Pt. resting in bed when this RN entered room. Pt. reported that she wanted to try and use the bed beaver. This RN placed bedpan under pt. but pt. unable to void at this time. Brandy-care performed and pad changed. Fundus firm at u-1 with small lochia noted. Abdomen tender and firm. Pt. reports she is too tired and hurting and didn't want to pump at this time. [facility]. Pt. fell asleep during conversation. This RN updated ICU nurses that fundal assessment and bleeding were still appropriate, and that pt. attempted to use bedpan.
[2020-12-06 04:25] LABS: Absolute Lymphocyte Count 1.76 X10^3/uL (0.83-4.51); Absolute Neutrophil Count 11.2 X10^3/uL (2.0-7.7); Basophil# 0.03 X10^3/uL; Basophil% 0.2 % (0-1); Hematocrit 24.6 % (37-47); Hemoglobin 8.6 g/dL (12.0-15.0); Lymphocyte # 1.76 X10^3/ul (4.0); Lymphocyte % 12.4 % (19-41); Mean Corpuscular Hgb 30.1 pg (27.0-32.0); Mean Platelet Vol. 11.3 fl (6.2-12.0); Monocyte# 0.95 X10^3/uL; Monocyte% 6.7 % (0-10); NRBC Flagged by Analyzer 0 % (0-5); Neutrophil # 11.21 X10^3/uL (2.7-7.7); Neutrophil % 79.1 % (47-70); POSITIVE COUNT YES; Platelet Count 70 K/mm3 (150-450); RBC Distribution Width CV 15.3 % (11.6-14.6); RBC Distribution Width SD 48.2 fl (35.1-43.9); Red Blood Count 2.86 M/mm3 (4.2-5.4); White Blood Count 14.2 K/mm3 (4.4-11.0)
[2020-12-06 04:35] LABS: Anion Gap 8 (5-15); BUN 15 mg/dL (7-18); BUN/Creat Ratio 12.6 RATIO (10-20); Calcium,Total 7.2 mg/dL (8.5-10.1); Chloride 106 mmol/L (98-107); Creatinine, Serum 1.19 mg/dL (0.55-1.02); EST Glomerular Filtration Rate 59 mL/min (>60); Est Glom Filt Rate - Afr Amer 72 mL/min (>60); Estimated Creatinine Clearance 55.48 ml/min; Glucose 109 mg/dL (74-106); Sodium Level 137 mmol/L (136-145)
[2020-12-06] MEDS: Acetaminophen 650 MG/20 ML UDC 1000 MG PO ×3 (04:46→22:10)
--- NOTE | 2020-12-06 05:33 | PN.OBGYN_ITS ---
Patient Problems: Active and Suspected Problems (Last Reviewed 12/04/20 @ 14:04 by Leighann Contreras) Status post emergency section (Acute) Hemorrhagic shock (Acute) DIC (disseminated intravascular coagulation) (Acute) Lab test negative for COVID-19 virus (Acute) 12/04/20 History of vaccination with combined mqjollilbf-yikevdf-vuuitdvvj pertussis (DTaP) (Acute) 09/20/20 Family history of defect (Acute) FOB has syndactyly Tobacco use complicating (Acute) encouraged cessation; 07/06 down to 2-3 cig per day History of hemorrhage (Acute) Genital herpes (Acute) plan valtrex at 36 weeks Subjective: Patient improving this morning she has ambulated and voided twice pain control fairly adequate just restless. no cp sob - Physical Exam Vitals/I&O's: Vital Signs Temp Pulse Resp BP Pulse Ox 97.5 F L 87 18 135/46 H 91 12/06/20 04:00 12/06/20 05:00 12/06/20 05:00 12/06/20 05:00 12/06/20 05:00 Oxygen Flow Rate (L/min) 2 Oxygen Delivery Method Room Air Weight: 186 lb 8.177 oz Body Mass Index (BMI) 35.2 Intake and Output for Last 24 Hours 12/04/20 12/05/20 12/06/20 23:59 23:59 23:59 Intake Total 8045 / 8165 1280 / 1280 Output Total 155 / 155 1100 / 1100 Balance 7890 / 8010 180 / 180 General: Alert, Cooperative, No apparent distress HEENT: Atraumatic, Normocephalic Oral: Dry Mucosa Lungs: Clear to auscultation, Normal air movement Cardiovascular: Regular rate, Regular Rhythm Abdomen: Hypoactive Bowel Sounds, Distended, Tender Extremities: Edema Laboratory Results 12/05/20 03:25: Crossmatch See Detail 12/05/20 03:25: Crossmatch See Detail 12/05/20 03:25: Crossmatch See Detail 12/05/20 03:25: Crossmatch See Detail 12/05/20 03:25: Crossmatch See Detail 12/05/20 04:00: Fibrinogen 85 L* 12/05/20 04:00: Kleihauer-Betke F Hgb Negative 12/05/20 06:50: WBC 29.3 H, RBC 2.53 L, Hgb 7.9 L, Hct 24.0 L, MCV 94.9, MCH 31.2, MCHC 32.9, RDW Std Deviation 46.6 H, RDW Coeff of Kristin 13.6, Plt Count 148 L, MPV 11.2, Immature Gran % (Auto) 2.600 H, Neut % (Auto) 81.7 H, Lymph % (Auto) 9.6 L, [place] % (Auto) 5.8, Eos % (Auto) 0.1, Baso % (Auto) 0.2, Absolute Neuts (auto) 23.9 H, Absolute Lymphs (auto) 2.83, Nucleated RBC % 0, Differential Comment COMMENT, Diff Path Review Reviewed 12/05/20 06:50: PT 22.2 H, INR 2.0, APTT 37.6 H, Fibrinogen 59 L* 12/05/20 13:00: WBC 20.2 H, RBC 2.48 L, Hgb 7.4 L, Hct 21.9 L, MCV 88.3 D, MCH 29.8, MCHC 33.8, RDW Std Deviation 45.0 H, RDW Coeff of Kristin 14.0, Plt Count 108 L, MPV 10.8, Immature Gran % (Auto) 3.000 H, Neut % (Auto) 81.6 H, Lymph % (Auto) 9.7 L, [place] % (Auto) 5.5, Eos % (Auto) 0.0, Baso % (Auto) 0.2, Absolute Neuts (auto) 16.5 H, Absolute Lymphs (auto) 1.97, Nucleated RBC % 0 12/05/20 13:00: Fibrinogen 239 12/05/20 13:00: PT Ratio Pending, Thrombin Time Pending, Thrombin Time Mix Pending, Lupus Anticoag aPTT Pending, Beta-2-GPI IgG Ab Pending, Beta-2-GPI IgA Ab Pending, Beta-2-GPI IgM Ab Pending, Anti-Cardiolipin IgG Ab Pending, Anti- Cardiolipin IgA Ab Pending, Anti-Cardiolipin IgM Ab Pending 12/05/20 13:00: PT 15.6 H, INR 1.3 12/05/20 13:00: APTT 28.6 12/05/20 21:30: WBC 17.6 H, RBC 2.46 L, Hgb 7.4 L, Hct 20.9 L, MCV 85.0, MCH 30.1, MCHC 35.4, RDW Std Deviation 46.2 H, RDW Coeff of Kristin 14.9 H, Plt Count 80 L, MPV 11.0, Immature Gran % (Auto) 2.700 H, Neut % (Auto) 79.4 H, Lymph % (Auto) 12.5 L, [place] % (Auto) 5.2, Eos % (Auto) 0.0, Baso % (Auto) 0.2, Absolute Neuts (auto) 13.9 H, Absolute Lymphs (auto) 2.19, Nucleated RBC % 0, Differential Comment SCANNED, Platelet Estimate MOD 12/05/20 21:30: Sodium 134 L, Potassium 5.4 H, Chloride 105, Carbon Dioxide 23.0, Anion Gap 6, BUN 15, Creatinine 1.53 H, Estim Creat Clear Calc 43.15, Est GFR (MDRD) Af Amer 54 L, Est GFR (MDRD) Non-Af 44 L, BUN/Creatinine Ratio 9.8 L, Glucose 117 H, Calcium 6.7 L 12/06/20 04:15: WBC 14.2 H, RBC 2.86 L, Hgb 8.6 L, Hct 24.6 L, MCV 86.0, MCH 30.1, MCHC 35.0, RDW Std Deviation 48.2 H, RDW Coeff of Kristin 15.3 H, Plt Count 70 L, MPV 11.3, Immature Gran % (Auto) 1.600 H, Neut % (Auto) 79.1 H, Lymph % (Auto) 12.4 L, [place] % (Auto) 6.7, Eos % (Auto) 0.0, Baso % (Auto) 0.2, Absolute Neuts (auto) 11.2 H, Absolute Lymphs (auto) 1.76, Nucleated RBC % 0 12/06/20 04:15: Sodium 137, Potassium 4.0, Chloride 106, Carbon Dioxide 23.0, Anion Gap 8, BUN 15, Creatinine 1.19 H, Estim Creat Clear Calc 55.48, Est GFR (MDRD) Af Amer 72, Est GFR (MDRD) Non-Af 59 L, BUN/Creatinine Ratio 12.6, Glucose 109 H, Calcium 7.2 L Current Medications Acetaminophen (Acetaminophen 650 Mg/20 Ml Udc) 1,000 mg PO Q6H [facility] Last Admin: 12/06/20 04:46 Dose: 1,000 mg Documented by: Bisacodyl (Bisacodyl 10 Mg Suppository) 10 mg RECTAL UD PRN PRN Reason: If no BM Fentanyl Citrate (Fentanyl 100 Mcg/2 Ml Ampul) 50 mcg IV Q2H PRN PRN PRN Reason: Pain Score 6-10 Last Admin: 12/06/20 01:53 Dose: 50 mcg Documented by: Hydrocortisone (Hydrocortisone 2.5% Crm) 1 applic TOPICAL TID PRN PRN; Protocol PRN Reason: Discomfort Lactated Ringer's () 1,000 mls @ 100 mls/hr IV .Q10H [facility] Last Admin: 12/06/20 02:19 Dose: 100 mls/hr Documented by: Sodium Chloride () 500 mls @ 15 mls/hr IV PRN PRN PRN Reason: Blood Transfusion Methylergonovine Maleate (Methylergonovine 0.2 Mg/Ml Ampul) 0.2 mg IM X1 PRN PRN Reason: Uterine Atony Last Admin: 12/05/20 06:35 Dose: 0.2 mg Documented by: Ondansetron HCl (Ondansetron 4 Mg/2 Ml Vial) 4 mg IV Q4H PRN PRN PRN Reason: Nausea Last Admin: 12/05/20 07:52 Dose: 4 mg Documented by: Oxycodone HCl (Oxycodone 5 Mg Tablet) 5 - 10 mg PO Q4H PRN PRN PRN Reason: Pain Score 4-10 Prochlorperazine Edisylate (Prochlorperazine 10 Mg/2 Ml Vial) 10 mg IV Q6H PRN PRN PRN Reason: NAUSEA Last Admin: 12/06/20 01:53 Dose: 10 mg Documented by: Senna/Docusate Sodium (Senna/Docusate Sodium 1 Tablet) 0 tablet PO DAILY [facility] Last Admin: 12/05/20 14:31 Dose: 1 tablet Documented by: Simethicone (Simethicone 80 Mg Tablet) 80 mg PO HS PRN PRN Reason: Indigestion/stomach pain Last Admin: 12/05/20 20:18 Dose: 80 mg Documented by: Sodium Chloride (0.9% Saline Lock 10 Ml Syringe) 5 - 15 ml IV UD PRN PRN Reason: SALINE FLUSH Last Admin: 12/05/20 23:16 Dose: 15 ml Documented by: Sodium Chloride (0.9% Saline Lock 10 Ml Syringe) 10 - 40 ml IV UD PRN PRN Reason: Multilumen/Hall Flush Last Admin: 12/05/20 16:43 Dose: 40 ml Documented by: Sodium Chloride (0.9 % Nacl (Sterile) Posiflush 10 Ml) 10 - 40 ml IV UD PRN PRN Reason: Port access or dressing change Medical Necessity - Tobacco Use Smoking Status: Current every day smoker Assessment/Plan All Active Problems (Last Reviewed 12/04/20 @ 14:04 by Leighann Contreras) Anemia associated with acute blood loss (Acute) atony of uterus with hemorrhage (Acute) Placenta abruption, delivered, current hospitalization (Acute) Status post emergency section (Acute) Hemorrhagic shock (Acute) DIC (disseminated intravascular coagulation) (Acute) Lab test negative for COVID-19 virus (Acute) History of vaccination with combined blvodyocgj-xbrxacl-btajofyvz pertussis (DTaP) (Acute) Family history of defect (Acute) Tobacco use complicating (Acute) History of hemorrhage (Acute) Genital herpes (Acute) 37 weeks gestation of (Resolved) Placenta abruption, delivered, current hospitalization (Resolved) (Resolved) Supervision of high-risk (Resolved) Community acquired pneumonia (Resolved) Complete (Resolved) Early stage of (Resolved) Family history of defect (Resolved) Missed (Resolved) (Resolved) Sepsis (Resolved) Thyroiditis (Resolved) This is a 25 year-old, s/p emergent LTCS POD 1 1. Anemia secondary to acute blood loss, hemorrhagic shock, DIC? s/p 8 U PRBCs, 3 U FFP, 1 cryo, and 1 packs of platelets transfused and still thrombocytopenic but Hg stabilizing. vitals signs normalizing. appreciate critical care management 2. acute renal insufficiency- related to #1- labs improving this am, increased urine output. patient voiding. 3. GI function- compazine PRN, mylicon, dulcolax PRN- hypoactive but improving, will advance diet as tolerated slowly today. 4. pain management- IV, will encourage po control today. 5. will ambulate after stable enough to transfer to the floor, SCDs
[2020-12-06 06:39] LABS: Fibrinogen 393 mg/dl (203-444)
--- NOTE | 2020-12-06 07:04 | PCM.PN.INT ---
Subjective: Patient did well overnight. Patient did have to be given an additional 2 units of blood overnight. Platelets were ordered, but have not been available to for administration. Patient states she feels subjectively improved compared to previous. Patient is still reporting significant lower abdominal pain. Nursing is not reporting significant vaginal bleeding or bleeding from the incision. Patient was able to make it out of bed to urinate this morning. General: Alert, Oriented x3, Cooperative, No apparent distress, Well developed, Well nourished, - - Mild anasarca HEENT: Atraumatic, PERRLA, EOMI, Normocephalic, - - No scleral icterus or injection noted. Conjunctive pink Oral: Moist Mucosa, No Gingival or Mucosal Lesions/ Ulcerations, - - Better color today Neck: Supple, No JVD, No Nodes, Trachea Midline Lungs: No rhonchi, No wheeze, Rales - Right base, - - Slight guarding with inhalation Cardiovascular: Regular Rhythm, Normal S1, Normal S2, No murmurs, No rub noted, No Gallop, Tachycardic Abdomen: Bowel Sounds Present, Soft, Bowel Sounds Not Present, Distended - Slightly, Tender Extremities: No clubbing, No cyanosis, Edema Skin: Incision - Slight drainage noted on dressing Musculoskeletal: No Tenderness to Palpation of Joints or Extremities Lymphatic: No Cervical, Supraclavicular, or Inguinal Adenopathy Neurological: Cranial nerves II-XII grossly intact, Neuro grossly intact, Motor Exam 5/5 strength throughout Psych/Mental Status: Alert and oriented to time, place, person, mood and affect Vital Signs Temp Pulse Resp BP Pulse Ox 36.4 C L 80 16 145/80 H 94 12/06/20 04:00 12/06/20 07:00 12/06/20 07:00 12/06/20 07:00 12/06/20 07:00 Oxygen Flow Rate (L/min) 2 Oxygen Delivery Method Room Air Weight: 84.1 kg Body Mass Index (BMI) 35.2 Intake and Output for Last 24 Hours 12/04/20 12/05/20 12/06/20 23:59 23:59 23:59 Intake Total 8045 / 8165 1280 / 1280 Output Total 155 / 155 1100 / 1100 Balance 7890 / 8010 180 / 180 Labs (Last 48 Hours) 12/05/20 12/05/20 12/05/20 03:25 03:25 03:25 WBC 17.2 H RBC 3.65 L Hgb 11.5 L Hct 33.6 L MCV 92.1 MCH 31.5 MCHC 34.2 RDW Std Deviation 44.2 H RDW Coeff of Kristin 13.2 Plt Count 166 MPV 11.4 Immature Gran % (Auto) 1.300 H Neut % (Auto) 69.3 Lymph % (Auto) 23.0 [place] % (Auto) 5.1 Eos % (Auto) 0.8 Baso % (Auto) 0.5 Absolute Neuts (auto) 11.9 H Absolute Lymphs (auto) 3.95 Nucleated RBC % 0 Differential Comment Diff Path Review Platelet Estimate Kleihauer-Betke F Hgb PT PT Ratio INR APTT Thrombin Time Thrombin Time Mix Fibrinogen Lupus Anticoag aPTT Sodium Potassium Chloride Carbon Dioxide Anion Gap BUN Creatinine Estim Creat Clear Calc Est GFR (MDRD) Af Amer Est GFR (MDRD) Non-Af BUN/Creatinine Ratio Glucose Calcium Beta-2-GPI IgG Ab Beta-2-GPI IgA Ab Beta-2-GPI IgM Ab Anti-Cardiolipin IgG Ab Anti-Cardiolipin IgA Ab Anti-Cardiolipin IgM Ab Blood Type B POSITIVE Antibody Screen NEGATIVE Crossmatch See Detail 12/05/20 12/05/20 12/05/20 03:25 03:25 03:25 WBC RBC Hgb Hct MCV MCH MCHC RDW Std Deviation RDW Coeff of Kristin Plt Count MPV Immature Gran % (Auto) Neut % (Auto) Lymph % (Auto) [place] % (Auto) Eos % (Auto) Baso % (Auto) Absolute Neuts (auto) Absolute Lymphs (auto) Nucleated RBC % Differential Comment Diff Path Review Platelet Estimate Kleihauer-Betke F Hgb PT 14.0 PT Ratio INR 1.1 APTT 30.9 Thrombin Time Thrombin Time Mix Fibrinogen 213 Lupus Anticoag aPTT Sodium Potassium Chloride Carbon Dioxide Anion Gap BUN Creatinine Estim Creat Clear Calc Est GFR (MDRD) Af Amer Est GFR (MDRD) Non-Af BUN/Creatinine Ratio Glucose Calcium Beta-2-GPI IgG Ab Beta-2-GPI IgA Ab Beta-2-GPI IgM Ab Anti-Cardiolipin IgG Ab Anti-Cardiolipin IgA Ab Anti-Cardiolipin IgM Ab Blood Type Antibody Screen Crossmatch See Detail See Detail 12/05/20 12/05/20 12/05/20 03:25 03:25 04:00 WBC 19.3 H RBC 2.64 L Hgb 8.6 L Hct 25.0 L MCV 94.7 MCH 32.6 H MCHC 34.4 RDW Std Deviation 45.5 H RDW Coeff of Kristin 13.4 Plt Count 146 L MPV 11.0 Immature Gran % (Auto) 2.300 H Neut % (Auto) 70.3 H Lymph % (Auto) 21.3 [place] % (Auto) 5.0 Eos % (Auto) 0.8 Baso % (Auto) 0.3 Absolute Neuts (auto) 13.6 H Absolute Lymphs (auto) 4.12 Nucleated RBC % 0 Differential Comment Diff Path Review Platelet Estimate Kleihauer-Betke F Hgb PT PT Ratio INR APTT Thrombin Time Thrombin Time Mix Fibrinogen Lupus Anticoag aPTT Sodium Potassium Chloride Carbon Dioxide Anion Gap BUN Creatinine Estim Creat Clear Calc Est GFR (MDRD) Af Amer Est GFR (MDRD) Non-Af BUN/Creatinine Ratio Glucose Calcium Beta-2-GPI IgG Ab Beta-2-GPI IgA Ab Beta-2-GPI IgM Ab Anti-Cardiolipin IgG Ab Anti-Cardiolipin IgA Ab Anti-Cardiolipin IgM Ab Blood Type Antibody Screen Crossmatch See Detail See Detail 12/05/20 12/05/20 12/05/20 04:00 04:00 06:50 WBC 29.3 H RBC 2.53 L Hgb 7.9 L Hct 24.0 L MCV 94.9 MCH 31.2 MCHC 32.9 RDW Std Deviation 46.6 H RDW Coeff of Kristin 13.6 Plt Count 148 L MPV 11.2 Immature Gran % (Auto) 2.600 H Neut % (Auto) 81.7 H Lymph % (Auto) 9.6 L [place] % (Auto) 5.8 Eos % (Auto) 0.1 Baso % (Auto) 0.2 Absolute Neuts (auto) 23.9 H Absolute Lymphs (auto) 2.83 Nucleated RBC % 0 Differential Comment COMMENT Diff Path Review Reviewed Platelet Estimate Kleihauer-Betke F Hgb Negative PT 17.9 H PT Ratio INR 1.5 APTT 34.9 Thrombin Time Thrombin Time Mix Fibrinogen 85 L* Lupus Anticoag aPTT Sodium Potassium Chloride Carbon Dioxide Anion Gap BUN Creatinine Estim Creat Clear Calc Est GFR (MDRD) Af Amer Est GFR (MDRD) Non-Af BUN/Creatinine Ratio Glucose Calcium Beta-2-GPI IgG Ab Beta-2-GPI IgA Ab Beta-2-GPI IgM Ab Anti-Cardiolipin IgG Ab Anti-Cardiolipin IgA Ab Anti-Cardiolipin IgM Ab Blood Type Antibody Screen Crossmatch 12/05/20 12/05/20 12/05/20 06:50 13:00 13:00 WBC 20.2 H RBC 2.48 L Hgb 7.4 L Hct 21.9 L MCV 88.3 D MCH 29.8 MCHC 33.8 RDW Std Deviation 45.0 H RDW Coeff of Kristin 14.0 Plt Count 108 L MPV 10.8 Immature Gran % (Auto) 3.000 H Neut % (Auto) 81.6 H Lymph % (Auto) 9.7 L [place] % (Auto) 5.5 Eos % (Auto) 0.0 Baso % (Auto) 0.2 Absolute Neuts (auto) 16.5 H Absolute Lymphs (auto) 1.97 Nucleated RBC % 0 Differential Comment Diff Path Review Platelet Estimate Kleihauer-Betke F Hgb PT 22.2 H PT Ratio INR 2.0 APTT 37.6 H Thrombin Time Thrombin Time Mix Fibrinogen 59 L* 239 Lupus Anticoag aPTT Sodium Potassium Chloride Carbon Dioxide Anion Gap BUN Creatinine Estim Creat Clear Calc Est GFR (MDRD) Af Amer Est GFR (MDRD) Non-Af BUN/Creatinine Ratio Glucose Calcium Beta-2-GPI IgG Ab Beta-2-GPI IgA Ab Beta-2-GPI IgM Ab Anti-Cardiolipin IgG Ab Anti-Cardiolipin IgA Ab Anti-Cardiolipin IgM Ab Blood Type Antibody Screen Crossmatch 12/05/20 12/05/20 12/05/20 13:00 13:00 13:00 WBC RBC Hgb Hct MCV MCH MCHC RDW Std Deviation RDW Coeff of Kristin Plt Count MPV Immature Gran % (Auto) Neut % (Auto) Lymph % (Auto) [place] % (Auto) Eos % (Auto) Baso % (Auto) Absolute Neuts (auto) Absolute Lymphs (auto) Nucleated RBC % Differential Comment Diff Path Review Platelet Estimate Kleihauer-Betke F Hgb PT 15.6 H PT Ratio Pending INR 1.3 APTT 28.6 Thrombin Time Pending Thrombin Time Mix Pending Fibrinogen Lupus Anticoag aPTT Pending Sodium Potassium Chloride Carbon Dioxide Anion Gap BUN Creatinine Estim Creat Clear Calc Est GFR (MDRD) Af Amer Est GFR (MDRD) Non-Af BUN/Creatinine Ratio Glucose Calcium Beta-2-GPI IgG Ab Pending Beta-2-GPI IgA Ab Pending Beta-2-GPI IgM Ab Pending Anti-Cardiolipin IgG Ab Pending Anti-Cardiolipin IgA Ab Pending Anti-Cardiolipin IgM Ab Pending Blood Type Antibody Screen Crossmatch 12/05/20 12/05/20 12/06/20 21:30 21:30 04:15 WBC 17.6 H 14.2 H RBC 2.46 L 2.86 L Hgb 7.4 L 8.6 L Hct 20.9 L 24.6 L MCV 85.0 86.0 MCH 30.1 30.1 MCHC 35.4 35.0 RDW Std Deviation 46.2 H 48.2 H RDW Coeff of Kristin 14.9 H 15.3 H Plt Count 80 L 70 L MPV 11.0 11.3 Immature Gran % (Auto) 2.700 H 1.600 H Neut % (Auto) 79.4 H 79.1 H Lymph % (Auto) 12.5 L 12.4 L [place] % (Auto) 5.2 6.7 Eos % (Auto) 0.0 0.0 Baso % (Auto) 0.2 0.2 Absolute Neuts (auto) 13.9 H 11.2 H Absolute Lymphs (auto) 2.19 1.76 Nucleated RBC % 0 0 Differential Comment SCANNED Diff Path Review Platelet Estimate MOD DEC Kleihauer-Betke F Hgb PT PT Ratio INR APTT Thrombin Time Thrombin Time Mix Fibrinogen Lupus Anticoag aPTT Sodium 134 L Potassium 5.4 H Chloride 105 Carbon Dioxide 23.0 Anion Gap 6 BUN 15 Creatinine 1.53 H Estim Creat Clear Calc 43.15 Est GFR (MDRD) Af Amer 54 L Est GFR (MDRD) Non-Af 44 L BUN/Creatinine Ratio 9.8 L Glucose 117 H Calcium 6.7 L Beta-2-GPI IgG Ab Beta-2-GPI IgA Ab Beta-2-GPI IgM Ab Anti-Cardiolipin IgG Ab Anti-Cardiolipin IgA Ab Anti-Cardiolipin IgM Ab Blood Type Antibody Screen Crossmatch 12/06/20 12/06/20 04:15 04:55 WBC RBC Hgb Hct MCV MCH MCHC RDW Std Deviation RDW Coeff of Kristin Plt Count MPV Immature Gran % (Auto) Neut % (Auto) Lymph % (Auto) [place] % (Auto) Eos % (Auto) Baso % (Auto) Absolute Neuts (auto) Absolute Lymphs (auto) Nucleated RBC % Differential Comment Diff Path Review Platelet Estimate Kleihauer-Betke F Hgb PT PT Ratio INR APTT Thrombin Time Thrombin Time Mix Fibrinogen 393 Lupus Anticoag aPTT Sodium 137 Potassium 4.0 Chloride 106 Carbon Dioxide 23.0 Anion Gap 8 BUN 15 Creatinine 1.19 H Estim Creat Clear Calc 55.48 Est GFR (MDRD) Af Amer 72 Est GFR (MDRD) Non-Af 59 L BUN/Creatinine Ratio 12.6 Glucose 109 H Calcium 7.2 L Beta-2-GPI IgG Ab Beta-2-GPI IgA Ab Beta-2-GPI IgM Ab Anti-Cardiolipin IgG Ab Anti-Cardiolipin IgA Ab Anti-Cardiolipin IgM Ab Blood Type Antibody Screen Crossmatch Clinical Impression(s) from Imaging Studies Chest X-Ray 12/05/20 08:56 IMPRESSION: The tip of the right central venous catheter is in the right atrium. Mild increased markings at the lung bases suggestive of bibasilar atelectasis. Electronically Signed: Kenyon Jackson MD at 9:29 EST , Service support , Medical Necessity - Tobacco Use Smoking Status: Current every day smoker Assessment/Plan All Active Problems (Last Reviewed 12/04/20 @ 14:04 by Leighann Contreras) Placenta abruption, delivered, current hospitalization (Acute) atony of uterus with hemorrhage (Acute) Anemia associated with acute blood loss (Acute) Status post emergency section (Acute) Hemorrhagic shock (Acute) DIC (disseminated intravascular coagulation) (Acute) Lab test negative for COVID-19 virus (Acute) History of vaccination with combined vudygbpmcc-qibvzum-hyywprpke pertussis (DTaP) (Acute) Family history of defect (Acute) Tobacco use complicating (Acute) History of hemorrhage (Acute) Genital herpes (Acute) 37 weeks gestation of (Resolved) Placenta abruption, delivered, current hospitalization (Resolved) (Resolved) Supervision of high-risk (Resolved) Community acquired pneumonia (Resolved) Complete (Resolved) Early stage of (Resolved) Family history of defect (Resolved) Missed (Resolved) (Resolved) Sepsis (Resolved) Thyroiditis (Resolved) RECOMMENDATIONS: 1. Continue to monitor through the day in intensive care 2. Recheck labs at 2 PM 3. If labs show no significant decline, likely okay [facility] 4. Okay to use SCDs from my perspective 5. Reinitiate DVT prophylaxis/anticoagulation tomorrow if okay with OB IMPRESSIONS: 1. Disseminated intravascular coagulopathy secondary to placental abruption Patient appears to have stabilized from this condition. Fibrinogen is back to normal range. Patient did receive 8 units of blood, so would proceed with platelets given some oozing. Clinical suspicion for an element of consumption by DIC for platelets and an element of dilution from units of blood. Labs ordered for 2 PM today. If doing well, likely okay to [facility]. 2. Hemorrhagic shock secondary to acute blood loss anemia secondary to #2 Patient with approximately 2.5-3 L of blood loss thus far. Incision with a slow bleed, but ultrasound by CHALK MOLDING MACHINE OPERATOR shows cessation should have been obtained. Patient's blood pressure is doing well at this time. Do anticipate an element of auto diuresis. Would not recommend Lasix as patient will likely normalize without medication. 3. 39-week status post postop day #1 Incision site appears to be okay at this time. CHALK MOLDING MACHINE OPERATOR is following. Recommend fentanyl versus Dilaudid for pain control. Incentive spirometer. Hold on ambulation for now given hemodynamics. Okay to use SCDs for DVT prophylaxis from my perspective, but would avoid Lovenox or heparin until tomorrow. 4. Genital herpes/tobacco use during /obesity Complicates care, management, recovery and prognosis. Hold on nicotine replacement if possible given possibility of breast-feeding 5. Acute kidney injury Clinical suspicion this is secondary to problems 1 and 2. Both are resolving. We will continue to monitor intermittently, but anticipate full recovery. Inpatient E&M: [id number] [facility] L3
[2020-12-06] MEDS: oxyCODONE 5 MG Tablet PO ×2 (08:13→16:40)
[2020-12-06] MEDS: Bisacodyl 5 MG Tablet 10 MG PO ×2 (10:38→22:08)
[2020-12-06] MEDS: Senna/Docusate Sodium 1 Tablet PO (10:38)
--- NOTE | 2020-12-06 11:11 | NURSING ---
nurse up to see pt and given pads and tucks. instructed on use of tucks till labia swelling goes down. pt voiced that she will pump while in the hospital but has not interest at all of breast feeding or pumping once she is discharge. She would like her wishes to be accepted. ICU nurse in room at the time of this conversation. to be informed. pt looks and feels so much better. the plan is to have repeat labs at 1400 and if all is good will be transported back down to . Her , Adithya remains at [facility] with the baby.
[2020-12-06] MEDS: 0.9% Saline Lock 10 ML Syringe IV (14:07)
[2020-12-06 14:24] LABS: Absolute Lymphocyte Count 1.72 X10^3/uL (0.83-4.51); Absolute Neutrophil Count 12.6 X10^3/uL (2.0-7.7); Basophil# 0.02 X10^3/uL; Basophil% 0.1 % (0-1); Eosinophil# 0.01 X10^3/uL; Eosinophils% 0.1 % (0-5); Hematocrit 21.8 % (37-47); Hemoglobin 7.5 g/dL (12.0-15.0); Lymphocyte # 1.72 X10^3/ul (4.0); Lymphocyte % 11.1 % (19-41); Mean Corp Hgb Conc 34.4 g/dL (32-36); Mean Corpuscular Hgb 29.6 pg (27.0-32.0); Mean Corpuscular Volume 86.2 fL (81-99); Mean Platelet Vol. 10.2 fl (6.2-12.0); Monocyte# 0.96 X10^3/uL; Monocyte% 6.2 % (0-10); NRBC Flagged by Analyzer 0 % (0-5); Neutrophil # 12.63 X10^3/uL (2.7-7.7); Neutrophil % 81.2 % (47-70); Platelet Count 106 K/mm3 (150-450); RBC Distribution Width SD 46.5 fl (35.1-43.9); Red Blood Count 2.53 M/mm3 (4.2-5.4); White Blood Count 15.5 K/mm3 (4.4-11.0)
[2020-12-06 14:42] LABS: Fibrinogen 477 mg/dl (203-444)
[2020-12-06 14:43] LABS: International Normalized Ratio 1.1; Prothrombin Time (Protime)PT. 13.8 SECONDS (11.7-14.9)
[2020-12-06 14:44] LABS: Partial Thromboplast Time 26.8 Seconds (24.1-36.2)
--- NOTE | 2020-12-06 14:46 | CASEMGMT ---
Social Work SW entered pt room to offer support. Pt was sleeping and pt sister in the room. Sister requested SW not bother pt at this time and allow her to rest. SW will follow up at a later time. SHAMIKA Case
[2020-12-06] MEDS: Naproxen 250 MG Tablet 500 MG PO (22:08)
[2020-12-07 00:27] VITALS: BP 123/68; PULSE 111; RESP 18; TEMP 37.3; O2SAT 96
[2020-12-07] MEDS: Acetaminophen 650 MG/20 ML UDC 1000 MG PO ×2 (04:04→10:32)
[2020-12-07 04:06] VITALS: BP 129/72; PULSE 116; RESP 18; TEMP 36.8
[2020-12-07] MEDS: Naproxen 250 MG Tablet 500 MG PO (05:53)
[2020-12-07 06:07] LABS: Hematocrit 22.1 % (37-47); Hemoglobin 7.6 g/dL (12.0-15.0); Mean Corp Hgb Conc 34.4 g/dL (32-36); Mean Corpuscular Hgb 30.4 pg (27.0-32.0); Mean Corpuscular Volume 88.4 fL (81-99); Mean Platelet Vol. 10.4 fl (6.2-12.0); Platelet Count 120 K/mm3 (150-450); RBC Distribution Width CV 14.9 % (11.6-14.6); RBC Distribution Width SD 47.7 fl (35.1-43.9); White Blood Count 13.3 K/mm3 (4.4-11.0)
[2020-12-07 08:30] VITALS: BP 120/78; PULSE 103; RESP 16; TEMP 36.6; O2SAT 96
--- NOTE | 2020-12-07 08:37 | NURSING ---
NATALI hose given to pt. Pt instructed on how to wear hose once d/c home.
[2020-12-07] MEDS: Senna/Docusate Sodium 1 Tablet PO (09:19)
[2020-12-07] MEDS: Enoxaparin 40 MG/0.4 ML Syringe SC (09:19)
[2020-12-07] MEDS: Bisacodyl 5 MG Tablet 10 MG PO (09:19)
--- NOTE | 2020-12-07 09:45 | NURSING ---
Silver mepalex dressing replaced by this RN. Per Dr. Carrillo hidalgo strips applied to right side of incision. Pt tolerated well. Educated on not to take dressing off at home until seen in the office or dressing falls off by itself.
--- NOTE | 2020-12-07 10:54 | PCM.PN.OB ---
Patient Problems: Active and Suspected Problems (Last Reviewed 12/04/20 @ 14:04 by Leighann Contreras) Status post emergency section (Acute) Hemorrhagic shock (Acute) DIC (disseminated intravascular coagulation) (Acute) Lab test negative for COVID-19 virus (Acute) 12/04/20 History of vaccination with combined htvehxzjsd-dqxdkmx-nsuglvgcm pertussis (DTaP) (Acute) 09/20/20 Family history of defect (Acute) FOB has syndactyly Tobacco use complicating (Acute) encouraged cessation; 07/06 down to 2-3 cig per day History of hemorrhage (Acute) Genital herpes (Acute) plan valtrex at 36 weeks Subjective: improving overall, positive flatus no BM no CP SOB N V tolerating adequate po, good voiding. - Physical Exam Vitals/I&O's: Vital Signs Temp Pulse Resp BP Pulse Ox 97.8 F 103 H 16 120/78 96 12/07/20 08:30 12/07/20 08:30 12/07/20 08:30 12/07/20 08:30 12/07/20 08:30 Oxygen Flow Rate (L/min) 2 Oxygen Delivery Method Room Air Weight: 185 lb 6.54 oz Body Mass Index (BMI) 35.2 Intake and Output for Last 24 Hours 12/05/20 12/06/20 12/07/20 23:59 23:59 23:59 Intake Total 8045 / 8165 3280 / 3280 Output Total 155 / 155 3750 / 3750 Balance 7890 / 8010 -470 / -470 General: Alert, Oriented x3 HEENT: Atraumatic Oral: Moist Mucosa Lungs: Clear to auscultation Cardiovascular: Regular Rhythm, Normal S1, Normal S2, Tachycardic Abdomen: Soft, Non Tender, Distended - less than yesterday, - - incision C/D/I except for small gap 1 cm right side, ecchymoses Extremities: Edema Laboratory Results 12/06/20 14:10: WBC 15.5 H, RBC 2.53 L, Hgb 7.5 L, Hct 21.8 L, MCV 86.2, MCH 29.6, MCHC 34.4, RDW Std Deviation 46.5 H, RDW Coeff of Kristin 15.0 H, Plt Count 106 L, MPV 10.2, Immature Gran % (Auto) 1.300 H, Neut % (Auto) 81.2 H, Lymph % (Auto) 11.1 L, Crosby % (Auto) 6.2, Eos % (Auto) 0.1, Baso % (Auto) 0.1, Absolute Neuts (auto) 12.6 H, Absolute Lymphs (auto) 1.72, Nucleated RBC % 0 12/06/20 14:10: PT 13.8, INR 1.1, APTT 26.8 12/06/20 14:10: Fibrinogen 477 H 12/07/20 06:00: WBC 13.3 H, RBC 2.50 L, Hgb 7.6 L, Hct 22.1 L, MCV 88.4, MCH 30.4, MCHC 34.4, RDW Std Deviation 47.7 H, RDW Coeff of Kristin 14.9 H, Plt Count 120 L, MPV 10.4 Current Medications Acetaminophen (Acetaminophen 650 Mg/20 Ml Udc) 1,000 mg PO Q6H [facility] Last Admin: 12/07/20 10:32 Dose: 1,000 mg Documented by: Bisacodyl (Bisacodyl 5 Mg Tablet) 10 mg PO BID [facility] Last Admin: 12/07/20 09:19 Dose: 10 mg Documented by: Enoxaparin Sodium (Enoxaparin 40 Mg/0.4 Ml Syringe) 40 mg SC DAILY [facility] Last Admin: 12/07/20 09:19 Dose: 40 mg Documented by: Hydrocortisone (Hydrocortisone 2.5% Crm) 1 applic TOPICAL TID PRN PRN; Protocol PRN Reason: Discomfort Methylergonovine Maleate (Methylergonovine 0.2 Mg/Ml Ampul) 0.2 mg IM X1 PRN PRN Reason: Uterine Atony Naproxen (Naproxen 250 Mg Tablet) 500 mg PO Q8 [facility] Last Admin: 12/07/20 05:53 Dose: 500 mg Documented by: Ondansetron HCl (Ondansetron 4 Mg/2 Ml Vial) 4 mg IV Q4H PRN PRN PRN Reason: Nausea Oxycodone HCl (Oxycodone 5 Mg Tablet) 5 - 10 mg PO Q4H PRN PRN PRN Reason: Pain Score 4-10 Prochlorperazine Edisylate (Prochlorperazine 10 Mg/2 Ml Vial) 10 mg IV Q6H PRN PRN PRN Reason: NAUSEA Last Admin: 12/06/20 14:05 Dose: 10 mg Documented by: Senna/Docusate Sodium (Senna/Docusate Sodium 1 Tablet) 0 tablet PO DAILY [facility] Last Admin: 12/07/20 09:19 Dose: 1 tablet Documented by: Simethicone (Simethicone 80 Mg Tablet) 80 mg PO PCHS PRN PRN Reason: Indigestion/stomach pain Last Admin: 12/05/20 20:18 Dose: 80 mg Documented by: Sodium Chloride (0.9% Saline Lock 10 Ml Syringe) 5 - 15 ml IV UD PRN PRN Reason: SALINE FLUSH Medical Necessity - Tobacco Use Smoking Status: Current every day smoker Assessment/Plan All Active Problems (Last Reviewed 12/04/20 @ 14:04 by Leighann Contreras) Placenta abruption, delivered, current hospitalization (Acute) atony of uterus with hemorrhage (Acute) Anemia associated with acute blood loss (Acute) Status post emergency section (Acute) Hemorrhagic shock (Acute) DIC (disseminated intravascular coagulation) (Acute) Lab test negative for COVID-19 virus (Acute) History of vaccination with combined aebzyrmtgr-rabkzok-dundwkztb pertussis (DTaP) (Acute) Family history of defect (Acute) Tobacco use complicating (Acute) History of hemorrhage (Acute) Genital herpes (Acute) 37 weeks gestation of (Resolved) Placenta abruption, delivered, current hospitalization (Resolved) (Resolved) Supervision of high-risk (Resolved) Community acquired pneumonia (Resolved) Complete (Resolved) Early stage of (Resolved) Family history of defect (Resolved) Missed (Resolved) (Resolved) Sepsis (Resolved) Thyroiditis (Resolved) This is a 25 year-old, s/p emergent LTCS POD 2 1. Anemia secondary to acute blood loss, hemorrhagic shock, DIC? s/p 8 U PRBCs, 3 U FFP, 1 cryo, and 2 packs of platelets transfused and labs stable. s/p ICU care. 2. acute renal insufficiency- related to #1- labs improved increased urine output. patient voiding. 3. GI function- positive flatus, tolerating full diet 4. pain management- oral pain control 5. dvt prophylaxis- julius hose to go home, lovenox today, reviewed blood clot precautions stable for discharge to home to be with at [facility] and family. reviewed precautions
--- NOTE | 2020-12-07 10:58 | PCM.DCCSEC ---
Discharge Diet: No Restrictions Discharge Activity: May Not Drive - for 2 weeks, May not drive while taking narcotic pain medications., May Shower, May Take a Tub Bath - in 7 days May resume sexual activity in: 4-6 weeks Lifting Restrictions: 20 pounds Additional Activity Instructions:: Nothing in the vagina for 4-6 weeks. You may return to work/school in 6 weeks. Call your doctor if your incision/area has: Continuous Slow Oozing, Sudden Increased Bleeding, Increased Pain/ Swelling, Increased Redness, Foul Smelling Discharge Call your doctor if you observe: Fever of 101 or Higher, Using more than one pad per hour - for 2 hours Suture Line Care: Avoid Pulling/Pushing, Avoid Pinching/Bending Cleanse incision/area with: Keep Dressing Clean & Dry Additional Instructions: If you experience any of the following, contact your healthcare provider. Bleeding that soaks a pad every hour for 2 hours Fever 100.4 or higher Unrelieved incision or abdominal pain Swelling, redness, discharge or bleeding from your incision or episiotomy site Your incision begins to separate Problems urinating (including inability to urinate or burning while urinating). Visual changes Severe headache Flu-like symptoms Pain or redness in one of both of your breasts Pain, warmth, tenderness or swelling in your legs, especially the calf area Frequent nausea and vomiting Symptoms of depression or anxiety If you experience any of the following, call 911 or go to the nearest Emergency Room. Chest pain Problems breathing Seizure activity Partial or complete paralysis of a body part, slurred speech, weakness or drooping of the face, or a sudden inability to walk or hold your balance Allergies/Adverse Reactions: Allergies Sulfa (Sulfonamide Antibiotics) Allergy (Verified 12/05/20 08:36) Hives Medications to take at Discharge No122/Iron/Folic Acid [ Multi Tablet] 1 ea PO DAILY 07/27/20 valacyclovir 1 gram tablet 1,000 mg PO DAILY #30 tab 11/13/20 Docusate Sodium [Colace] 100 mg PO BID #60 cap 12/07/20 Ferrous Sulfate [Slow Fe] 142 mg PO BID #60 tablet.er 12/07/20 Naproxen [Naprosyn] 250 - 500 mg PO Q8H PRN PRN #30 tab 12/07/20 Oxycodone HCl/Acetaminophen [Percocet 5-325] 1 - 2 tab PO Q6H PRN PRN 7 Days #28 tab 12/07/20 The following prescriptions were given: Docusate Sodium [Colace] 100 mg PO BID #60 cap Transmission Status: Received by [facility] Naproxen [Naprosyn] 250 - 500 mg PO Q8H PRN PRN #30 tab PRN Reason: MILD PAIN Transmission Status: Received by [facility] Oxycodone HCl/Acetaminophen [Percocet 5-325] 1 - 2 tab PO Q6H PRN PRN 7 Days #28 tab PRN Reason: Moderate-Severe pain Transmission Status: Received by [facility] Ferrous Sulfate [Slow Fe] 142 mg PO BID #60 tablet.er Transmission Status: Received by [facility] Follow-Up: Call to make an appointment with your doctor for an incision check in 1-2 weeks. You will also need a 6 week post- follow up appointment. Test results from this visit will be discussed in further detail at your follow-up appointment, if applicable. Please Follow Up With: Nancy Vizcaino MD - Call to make an appointment for an incision check in 1 [phone] When: You will need a post- check in 6 weeks. Primary Care Physician: Dusty Dewey PA [Primary Care Provider] -
[2020-12-07 12:06] VITALS: BP 123/80; PULSE 85; RESP 16; TEMP 36.6; O2SAT 99
[2020-12-07 20:07] LABS: Dilute Prothrombin Time (dPT) 37.4 sec (0.0-55.0); Dilute Russell Viper Venom 35.4 sec (0.0-47.0); PTT-LA 33.7 sec (0.0-51.9); Thrombin Time 15.6 sec (0.0-23.0); dPT Confirm Ratio 0.85 Ratio (0.00-1.40)
[2020-12-07 20:47] LABS: Anti-Cardiolipin Ab, IgA, Qn < 9 APL U/mL (0-11); Anti-Cardiolipin Ab, IgG, Qn < 9 GPL U/mL (0-14); Anti-Cardiolipin Ab, IgM, Qn < 9 MPL U/mL (0-12); Beta-2-Glycoprotein I IgA <9 (0-25); Beta-2-Glycoprotein I IgG <9 (0-20); Beta-2-Glycoprotein I IgM <9 (0-32); Interpretation Comment: (.)
--- NOTE | 2020-12-12 15:56 | DS.PCM_ITS ---
Discharge Date and Diagnosis - Problem List Patient Problems: Active and Suspected Problems (Last Updated 12/12/20 @ 08:08 by Judy Stock) Status post emergency section (Acute) Hemorrhagic shock (Acute) DIC (disseminated intravascular coagulation) (Acute) Lab test negative for COVID-19 virus (Acute) 12/04/20 History of vaccination with combined prmwudpbox-fuxjuac-vojqkxbyb pertussis (DTaP) (Acute) 09/20/20 Family history of defect (Acute) FOB has syndactyly Tobacco use complicating (Acute) encouraged cessation; 9/3 down to 2-3 cig per day History of hemorrhage (Acute) Genital herpes (Acute) plan valtrex at 36 weeks Date of Admission: 12/04/20 Date of Discharge: 12/06/20 - Primary Discharge Diagnosis Acute Problems: Active Problems (Last Updated 12/12/20 @ 08:08 by Judy Stock) Status post emergency section (Acute) Hemorrhagic shock (Acute) DIC (disseminated intravascular coagulation) (Acute) Lab test negative for COVID-19 virus (Acute) 12/04/20 History of vaccination with combined cbznknfdvj-hrtvuks-yxdmkvpzu pertussis (DTaP) (Acute) 09/20/20 Family history of defect (Acute) FOB has syndactyly Tobacco use complicating (Acute) encouraged cessation; 9/3 down to 2-3 cig per day History of hemorrhage (Acute) Genital herpes (Acute) plan valtrex at 36 weeks - Secondary Discharge Diagnosis Chronic Problems: Chronic Problems (Last Updated 12/12/20 @ 08:08 by Judy Stock) Multinodular goiter (Chronic) check tsh q trimester. TSH low on 05/12/20. Hospital Course and Treatment Operations: - - Stat primary low transverse Summary of Care Provided: Patient presented from home due to acute onset of vaginal bleeding and abdominal discomfort. Upon initial evaluation it was difficult to assess ascertain the heart rate and vaginal bleeding was noted to be significant so provider was called and immediately met the patient in the operating room for evaluation. Initial ultrasound showed no cardiac movement for at least 10 seconds and then to small faint beats were seen and therefore the decision was made to proceed with a stat primary low transverse . EBL prior to the was noted to be at least 800 cc. Decision to delivery was 3 minutes and baby was given to survey cad technician for resuscitation. Complete abruption was noted and total EBL for the procedure was 1000 cc. Postoperatively patient was ordered to have blood products were placed and during replacement 2 to 3 hours postop developed uterine atony, hemorrhage, and coagulopathy with development of DIC. Patient was transferred to the ICU and stabilized with 8 units of PRBCs, 1 unit of cryo, 3 units of FFP, and 2 units of platelets. Postop day 1 she was stable for answer to the floor and on postop day 2 she was stable for discharge to home because she was ambulating, tolerating p.o., had adequate pain control with oral medications, blood counts were stable, and she was wanting to be with her baby who had been transported to [place] and to be home with her other child. Patient Problems: Active and Suspected Problems (Last Updated 12/12/20 @ 08:08 by Judy Stock) Status post emergency section (Acute) Hemorrhagic shock (Acute) DIC (disseminated intravascular coagulation) (Acute) Lab test negative for COVID-19 virus (Acute) 12/04/20 History of vaccination with combined turiwzorxf-hmrzolq-qiocxzqzd pertussis (DTaP) (Acute) 09/20/20 Family history of defect (Acute) FOB has syndactyly Tobacco use complicating (Acute) encouraged cessation; 07/06 down to 2-3 cig per day History of hemorrhage (Acute) Genital herpes (Acute) plan valtrex at 36 weeks - Physical Exam Vitals/I&O's: Vital Signs Temp Pulse Resp BP Pulse Ox 97.9 F 85 16 123/80 H 99 12/07/20 12:06 12/07/20 12:06 12/07/20 12:06 12/07/20 12:06 12/07/20 12:06 Oxygen Flow Rate (L/min) 2 Oxygen Delivery Method Room Air Weight: 185 lb 6.54 oz Body Mass Index (BMI) 35.2 Discharge Diet: No Restrictions Discharge Activity: May Not Drive - for 2 weeks, May not drive while taking narcotic pain medications., May Shower, May Take a Tub Bath - in 7 days May resume sexual activity in: 4-6 weeks Additional Activity Instructions:: Nothing in the vagina for 4-6 weeks. You may return to work/school in 6 weeks. Call your doctor if your incision/area has: Continuous Slow Oozing, Sudden Increased Bleeding, Increased Pain/ Swelling, Increased Redness, Foul Smelling Discharge Call your doctor if you observe: Fever of 101 or Higher, Using more than one pad per hour - for 2 hours Suture Line Care: Avoid Pulling/Pushing, Avoid Pinching/Bending Cleanse incision/area with: Keep Dressing Clean & Dry Home Medications: Medications to take at Discharge valacyclovir 1 gram tablet 1,000 mg PO DAILY #30 tab 11/13/20 Docusate Sodium [Colace] 100 mg PO BID #60 cap 12/07/20 Ferrous Sulfate [Slow Fe] 142 mg PO BID #60 tablet.er 12/07/20 Naproxen [Naprosyn] 250 - 500 mg PO Q8H PRN PRN #30 tab 12/07/20 citalopram 20 mg tablet 20 mg PO DAILY #30 tab 12/12/20 zolpidem 5 mg tablet 5 mg PO QHS PRN #20 tab 12/12/20 Following Prescriptions Were Given to Patient: Docusate Sodium [Colace] 100 mg PO BID #60 cap Transmission Status: Received by [facility] Naproxen [Naprosyn] 250 - 500 mg PO Q8H PRN PRN #30 tab PRN Reason: MILD PAIN Transmission Status: Received by [facility] Ferrous Sulfate [Slow Fe] 142 mg PO BID #60 tablet.er Transmission Status: Received by [facility] Primary Care Physician: Dusty Dewey PA [Primary Care Provider] - Please Follow Up With: Nancy Vizcaino MD - Call to make an appointment for an incision check in 1 [phone] When: You will need a post- check in 6 weeks. Medical Necessity - Tobacco Use Smoking Status: Current every day smoker Meaningful Use Info Meaningful Use Diagnoses (Choose all that apply): None applicable
== END 2020-12-07 12:15 | disposition home or self-care (01) | DRG 540 ==
LOC: ICU 10:46 → WP 10:46 → WPOUT 10:46 → ICU 11:34 → WP 12-06 17:06
PROVIDERS: Internal Medicine Critical Care Medicine; Obstetrics & Gynecology; Admitting Provider Obstetrics & Gynecology; PCP Physician Assistant; Referring Provider Obstetrics & Gynecology; Visit Provider Obstetrics & Gynecology
DX: O45.93 Premature separation of placenta, unspecified, third trimester (principal); O76 Abnormality in fetal heart rate and rhythm complicating labor and delivery; O72.3 Postpartum coagulation defects; O72.1 Other immediate postpartum hemorrhage; O72.2 Delayed and secondary postpartum hemorrhage; O99.02 Anemia complicating childbirth; D62 Acute posthemorrhagic anemia; O75.1 Shock during or following labor and delivery; E86.9 Volume depletion, unspecified; O90.4 Postpartum acute kidney failure; N17.9 Acute kidney failure, unspecified; O98.32 Other infections with a predominantly sexual mode of transmission complicating childbirth; A60.00 Herpesviral infection of urogenital system, unspecified; O99.284 Endocrine, nutritional and metabolic diseases complicating childbirth; E04.2 Nontoxic multinodular goiter; O99.214 Obesity complicating childbirth; E66.9 Obesity, unspecified; O99.334 Smoking (tobacco) complicating childbirth; F17.210 Nicotine dependence, cigarettes, uncomplicated; Z79.899 Other long term (current) drug therapy; Z3A.39 39 weeks gestation of pregnancy; Z37.0 Single live birth
CPT/HCPCS: 59050; 71045; 80048; 85025; 85027; 85384; 85460; 85610; 85730; 86146; 86147; 86644; 86850; 86900; 86901; 86920; 86922; 86965; 99218; 99251; J7030; J7120; P9012; P9016; P9017; P9035; P9037; A4216; C1751; G0378; G0463; J2405

== ENCOUNTER → 2021-04-10 14:47 | Outpatient (CLI) | payer MEDICAID, SELFPAY ==
[2021-04-10 14:14] VITALS: BMI 26.1
[2021-04-10 15:05] LABS: Absolute Lymphocyte Count 2.76 X10^3/uL (0.83-4.51); Absolute Neutrophil Count 6.1 X10^3/uL (2.0-7.7); Basophil# 0.04 X10^3/uL; Basophil% 0.4 % (0-1); Eosinophil# 0.13 X10^3/uL; Eosinophils% 1.4 % (0-5); Hematocrit 39.7 % (37-47); Hemoglobin 13.6 g/dL (12.0-15.0); Lymphocyte # 2.76 X10^3/ul (0.83-4.51); Mean Corp Hgb Conc 34.3 g/dL (32-36); Mean Corpuscular Hgb 31.6 pg (27.0-32.0); Mean Corpuscular Volume 92.1 fL (81-99); Mean Platelet Vol. 10.9 fl (6.2-12.0); Monocyte# 0.47 X10^3/uL; Monocyte% 4.9 % (0-10); NRBC Flagged by Analyzer 0 % (0-5); Neutrophil # 6.09 X10^3/uL (2.7-7.7); Neutrophil % 63.9 % (47-70); Platelet Count 235 K/mm3 (150-450); RBC Distribution Width CV 13.1 % (11.6-14.6); RBC Distribution Width SD 43.8 fl (35.1-43.9); Red Blood Count 4.31 M/mm3 (4.2-5.4); White Blood Count 9.5 K/mm3 (4.4-11.0)
[2021-04-12 20:08] LABS: Chlamydia By Nucleic Acid AMP Negative (Negative)
[2021-04-12 22:41] LABS: Gonococcus By Nucleic Acid AMP Negative (Negative)
[2021-04-13 14:09] LABS: Dilute Prothrombin Time (dPT) 36.2 sec (0.0-55.0); Dilute Russell Viper Venom 35.4 sec (0.0-47.0); PTT-LA 38.4 sec (0.0-51.9); Thrombin Time 15.4 sec (0.0-23.0); dPT Confirm Ratio 1.05 Ratio (0.00-1.40)
[2021-04-13 16:43] LABS: Anti-Cardiolipin Ab, IgA, Qn < 9 APL U/mL (0-11); Anti-Cardiolipin Ab, IgG, Qn < 9 GPL U/mL (0-14); Anti-Cardiolipin Ab, IgM, Qn < 9 MPL U/mL (0-12); Beta-2-Glycoprotein I IgA <9 (0-25); Beta-2-Glycoprotein I IgG <9 (0-20); Beta-2-Glycoprotein I IgM <9 (0-32); Interpretation Comment: (.)
== END ==
PROVIDERS: PCP Physician Assistant; Referring Provider Obstetrics & Gynecology; Visit Provider Obstetrics & Gynecology
DX: O45.90 Premature separation of placenta, unspecified, unspecified trimester (principal); N96 Recurrent pregnancy loss; Z11.3 Encounter for screening for infections with a predominantly sexual mode of transmission; Z3A.00 Weeks of gestation of pregnancy not specified
CPT/HCPCS: 36415; 85025; 86146; 86147; 87491; 87591

== ENCOUNTER → 2021-05-15 12:09 | Outpatient (CLI) | payer MEDICAID, SELFPAY ==
[2021-04-10 14:14] VITALS: BMI 26.1
[2021-05-15 13:35] LABS: hCG Titer Quant., Serum 292 mIU/mL (1-3)
== END ==
PROVIDERS: PCP Physician Assistant; Referring Provider Obstetrics & Gynecology; Visit Provider Obstetrics & Gynecology
DX: N91.2 Amenorrhea, unspecified (principal)
CPT/HCPCS: 36415; 84702

== ENCOUNTER → 2021-05-17 12:31 | Outpatient (CLI) | payer MEDICAID, SELFPAY ==
[2021-04-10 14:14] VITALS: BMI 26.1
[2021-05-17 13:48] LABS: hCG Titer Quant., Serum 654 mIU/mL (1-3)
[2021-05-17 14:17] LABS: HIV - WCH Non-Reactive (Nonreactive); Syphilis Antibodies Non-reactive
[2021-05-18 20:11] LABS: HCV Quant. RNA PCR HCV Not Detected IU/mL (.); HEPATITIS B SURFACE AG Negative (Negative); Hepatitis A IgM Antibody Negative (Negative); Hepatitis B Core AB IgM Negative (Negative)
[2021-05-19 11:25] LABS: Hep C Antibodies <0.1 s/co ratio (0.0-0.9)
== END ==
PROVIDERS: PCP Physician Assistant; Referring Provider Obstetrics & Gynecology; Visit Provider Obstetrics & Gynecology
DX: N91.2 Amenorrhea, unspecified (principal); Z71.1 Person with feared health complaint in whom no diagnosis is made
CPT/HCPCS: 36415; 80074; 84702; 86703; 86780; 87522

== ENCOUNTER → 2021-06-29 10:41 | Outpatient (CLI) | payer MEDICAID, SELFPAY ==
[2021-06-29 11:06] LABS: Absolute Lymphocyte Count 1.94 X10^3/uL (0.83-4.51); Absolute Neutrophil Count 6.6 X10^3/uL (2.0-7.7); Basophil# 0.02 X10^3/uL; Basophil% 0.2 % (0-1); Eosinophil# 0.12 X10^3/uL; Eosinophils% 1.3 % (0-5); Hematocrit 37.5 % (37-47); Hemoglobin 12.6 g/dL (12.0-15.0); Lymphocyte # 1.94 X10^3/ul (0.83-4.51); Lymphocyte % 21.2 % (19-41); Mean Corp Hgb Conc 33.6 g/dL (32-36); Mean Corpuscular Hgb 31.7 pg (27.0-32.0); Mean Corpuscular Volume 94.5 fL (81-99); Mean Platelet Vol. 11.1 fl (6.2-12.0); Monocyte% 4.4 % (0-10); NRBC Flagged by Analyzer 0 % (0-5); Neutrophil # 6.61 X10^3/uL (2.7-7.7); Neutrophil % 72.4 % (47-70); Platelet Count 231 K/mm3 (150-450); RBC Distribution Width CV 11.9 % (11.6-14.6); RBC Distribution Width SD 41.3 fl (35.1-43.9); Red Blood Count 3.97 M/mm3 (4.2-5.4); White Blood Count 9.1 K/mm3 (4.4-11.0)
[2021-06-29 11:58] LABS: NATERA MAILED SPECIMEN
[2021-06-29 12:02] LABS: HIV - WCH Non-Reactive (Nonreactive); Hepatitis B Surface Antigen Non-Reactive (Nonreactive); Hepatitis C Antibody Non-Reactive (Nonreactive); Rubella IgG Reactive (Nonreactive); Syphilis Antibodies Non-reactive
[2021-07-02 20:08] LABS: Dilute Prothrombin Time (dPT) 38.4 sec (0.0-55.0); Dilute Russell Viper Venom 35.9 sec (0.0-47.0); PTT-LA 38.5 sec (0.0-51.9); Thrombin Time 13.4 sec (0.0-23.0); dPT Confirm Ratio 1.05 Ratio (0.00-1.40)
[2021-07-02 20:54] LABS: Anti-Cardiolipin Ab, IgA, Qn < 9 APL U/mL (0-11); Anti-Cardiolipin Ab, IgG, Qn < 9 GPL U/mL (0-14); Anti-Cardiolipin Ab, IgM, Qn 10 MPL U/mL (0-12); Beta-2-Glycoprotein I IgA <9 (0-25); Beta-2-Glycoprotein I IgG <9 (0-20); Beta-2-Glycoprotein I IgM <9 (0-32); Interpretation Comment: (.)
== END ==
PROVIDERS: PCP Physician Assistant; Referring Provider Obstetrics & Gynecology; Visit Provider Obstetrics & Gynecology
DX: Z34.90 Encounter for supervision of normal pregnancy, unspecified, unspecified trimester (principal); N96 Recurrent pregnancy loss; R76.0 Raised antibody titer
CPT/HCPCS: 36415; 36430; 85025; 86146; 86147; 86703; 86762; 86780; 86803; 86850; 86870; 86900; 86901; 86905; 87340

== ENCOUNTER → 2021-07-26 10:16 | Outpatient (CLI) | payer MEDICAID, SELFPAY ==
[2021-07-26 11:07] LABS: Absolute Lymphocyte Count 2.06 X10^3/uL (0.83-4.51); Absolute Neutrophil Count 5.5 X10^3/uL (2.0-7.7); Basophil# 0.04 X10^3/uL; Basophil% 0.5 % (0-1); Eosinophil# 0.09 X10^3/uL; Eosinophils% 1.1 % (0-5); Hematocrit 37.5 % (37-47); Hemoglobin 12.7 g/dL (12.0-15.0); Lymphocyte # 2.06 X10^3/ul (0.83-4.51); Lymphocyte % 25.4 % (19-41); Mean Corp Hgb Conc 33.9 g/dL (32-36); Mean Corpuscular Hgb 31.9 pg (27.0-32.0); Mean Corpuscular Volume 94.2 fL (81-99); Monocyte# 0.36 X10^3/uL; Monocyte% 4.4 % (0-10); NRBC Flagged by Analyzer 0 % (0-5); Platelet Count 210 K/mm3 (150-450); RBC Distribution Width CV 11.9 % (11.6-14.6); RBC Distribution Width SD 40.9 fl (35.1-43.9); Red Blood Count 3.98 M/mm3 (4.2-5.4); White Blood Count 8.1 K/mm3 (4.4-11.0)
[2021-07-26 11:38] LABS: Hemoglobin A1c 4.9 % (3.8-5.6)
[2021-07-26 11:47] LABS: T4 Free Direct 0.89 ng/dL (0.76-1.46)
[2021-08-01 22:06] LABS: HPV Genotype 16, Aptima Negative (Negative)
[2021-08-01 22:45] LABS: HPV APTIMA, High Risk Positive (Negative); HPV Genotype 18,45 Aptima Negative (Negative)
[2021-08-02 14:09] LABS: Protein C Antigen 113 % (60-150); Protein C, Functional 135 % (73-180)
[2021-08-02 14:30] LABS: Anti-Cardiolipin Ab, IgA, Qn < 9 APL U/mL (0-11); Anti-Cardiolipin Ab, IgG, Qn < 9 GPL U/mL (0-14); Anti-Cardiolipin Ab, IgM, Qn < 9 MPL U/mL (0-12); Antithrombin 3 Function 91 % (75-135); Beta-2-Glycoprotein I IgA <9 (0-25); Beta-2-Glycoprotein I IgG <9 (0-20); Beta-2-Glycoprotein I IgM <9 (0-32); Protein S, Free 60 % (61-136); Protein S, Funtional 53 % (63-140); Protein S, Total 53 % (60-150)
== END ==
PROVIDERS: PCP Physician Assistant
DX: O09.899 Supervision of other high risk pregnancies, unspecified trimester (principal); Z3A.00 Weeks of gestation of pregnancy not specified; Z87.59 Personal history of other complications of pregnancy, childbirth and the puerperium
CPT/HCPCS: 36415; 81240; 81241; 83021; 83036; 84439; 84443; 85025; 85300; 85302; 85303; 85305; 85306; 85660; 86146; 86147; 86850; 86870; 86900; 86901; 87086; 87624; 88175; G0145

== ENCOUNTER → 2021-09-03 09:20 | Outpatient (CLI) | payer MEDICAID, SELFPAY | END | disposition home or self-care (01) | PROVIDERS: PCP Physician Assistant | DX: O09.899 Supervision of other high risk pregnancies, unspecified trimester (principal); Z3A.00 Weeks of gestation of pregnancy not specified | CPT/HCPCS: 36415; 86850; 86900; 86901; 87086; 87088 ==

== ENCOUNTER → 2021-10-19 11:30 | Outpatient (CLI) | payer MEDICAID, SELFPAY ==
[2021-10-19 12:39] LABS: Vitamin D,25 Hydroxy 17.3 ng/mL
[2021-10-19 12:56] LABS: Free T3 2.7 pg/mL (2.18-3.98); T4 Free Direct 0.78 ng/dL (0.76-1.46); Thyroid Stim Hormone (TSH) 0.24 uIU/mL (0.358-3.74)
[2021-10-21 10:44] LABS: Thyroid Peroxidase AB 12 IU/mL (0-34)
== END ==
PROVIDERS: PCP Physician Assistant; Visit Provider Internal Medicine Endocrinology, Diabetes & Metabolism
DX: E04.9 Nontoxic goiter, unspecified (principal); E55.9 Vitamin D deficiency, unspecified
CPT/HCPCS: 36415; 82306; 84439; 84443; 84481; 86376

== ENCOUNTER 2021-11-05 10:39 | Outpatient (CLI) | payer MEDICAID, SELFPAY ==
[2021-11-05 10:50] VITALS: BP 122/75; PULSE 96
[2021-11-05 10:52] VITALS: PULSE 98; O2SAT 99
[2021-11-05 11:03] VITALS: BMI 31.8
[2021-11-05 11:15] VITALS: TEMP 36.9
--- NOTE | 2021-11-05 11:31 | OB.TRI.PN ---
Progress Notes Progress Note: Patient presents for triage evaluation secondary to cramping FHT: 135 Moderate variability reactive no decelerations category I tracing [place]: no regular Contractions Assessment and plan: cervix closed reassuring FHT, Reactive NST, reassuring maternal and status patient discharged to home to follow-up as scheudled with JOANN. See problem list details for additional plan information. Charges/Coding Procedures Urinary/Genital [id number]: [id number] non-stress test Interp Assessment & Plan (1) Abdominal cramping: COMMENT: cervix closed, no contractions. dc home fu with JOANN
[2021-11-05 12:10] LABS: Mucous, Urine 0 SEEN /hpf (<or=2+)
[2021-11-05 12:13] LABS: Color, Urine Yellow (Yellow); Glucose, Dipstick Normal (Normal); Ketone-Dipstick Negative (Negative); Leukocyte Esterase-Dipstick 25 /ul (Negative); Nitrite-Dipstick Negative (Negative); Occult Blood-Urine 10 /ul (Negative); Protein-Dipstick Negative (Negative); Specific Gravity, Urine 1.005 (1.002-1.030); Urine Bilirubin Dipstick Negative (Negative); Urine Clarity Sl. Cloudy (Clear); Urine Urobilinogen Normal (Normal)
[2021-11-05 12:19] LABS: Bacteria 1+ /hpf (None Seen); Red Blood Cells-Urine 0-5 SEEN /hpf (0-5); Squamous Epithelial Cells - UA 0-5 SEEN /hpf (5-10); White Blood Cells 0-5 SEEN /hpf (0-5)
[2021-12-03 10:04] VITALS: BP 123/60; PULSE 78; TEMP 36.4; O2SAT 100
== END 2021-11-05 23:59 | disposition home or self-care (01) ==
LOC: WPOUT 10:40 → WP 10:41
PROVIDERS: PCP Physician Assistant; Visit Provider Obstetrics & Gynecology
DX: O99.891 Other specified diseases and conditions complicating pregnancy (principal); R10.9 Unspecified abdominal pain; Z3A.00 Weeks of gestation of pregnancy not specified
CPT/HCPCS: 59025; 59050; 81001; 87086; 87088; 99218; G0378

== ENCOUNTER → 2021-11-12 08:51 | Outpatient (CLI) | payer MEDICAID, SELFPAY ==
[2021-11-12 09:06] LABS: Mucous, Urine 0 SEEN /hpf (<or=2+)
[2021-11-12 10:39] LABS: Hematocrit 35.3 % (37-47); Hemoglobin 11.7 g/dL (12.0-15.0); Mean Corp Hgb Conc 33.1 g/dL (32-36); Mean Corpuscular Hgb 32.1 pg (27.0-32.0); Mean Corpuscular Volume 96.7 fL (81-99); Mean Platelet Vol. 11.4 fl (6.2-12.0); Platelet Count 217 K/mm3 (150-450); RBC Distribution Width CV 13.2 % (11.6-14.6); RBC Distribution Width SD 46.6 fl (35.1-43.9); Red Blood Count 3.65 M/mm3 (4.2-5.4)
[2021-11-12 10:46] LABS: Color, Urine Yellow (Yellow); Glucose, Dipstick Normal (Normal); Ketone-Dipstick Negative (Negative); Leukocyte Esterase-Dipstick 25 /ul (Negative); Nitrite-Dipstick Negative (Negative); Occult Blood-Urine Negative /ul (Negative); Protein-Dipstick Negative (Negative); Urine Bilirubin Dipstick Negative (Negative); Urine Clarity Clear (Clear); Urine Urobilinogen Normal (Normal); Urine pH 6.5 (5.0 - 8.0)
[2021-11-12 10:56] LABS: Bacteria 1+ /hpf (None Seen); Red Blood Cells-Urine 0-5 SEEN /hpf (0-5); Squamous Epithelial Cells - UA 0-5 SEEN /hpf (5-10); Trichomonas 0-5 SEEN /hpf (None Seen); White Blood Cells 0-5 SEEN /hpf (0-5)
[2021-11-12 11:28] LABS: ALB/GLOB Ratio 0.8 RATIO (0.9-2.4); AST(SGOT) 6 U/L (15-37); Alanine Aminotransfer ALT/SGPT 11 U/L (13-56); Albumin, Serum 3.1 g/dL (3.2-5.0); Alkaline Phosphatase 97 U/L (45-117); Anion Gap 5 (5-15); BUN 5 mg/dL (7-18); BUN/Creat Ratio 8.9 RATIO (10-20); Calcium,Total 8.7 mg/dL (8.5-10.1); Chloride 105 mmol/L (98-107); Creatinine, Serum 0.56 mg/dL (0.55-1.02); EST Glomerular Filtration Rate 139 mL/min (>60); Est Glom Filt Rate - Afr Amer 169 mL/min (>60); Globulin 4.1 g/dL (2.2-4.2); Glucose 132 mg/dL (74-106); Glucose Challenge Gest 1H 50g 132 mg/dL (70-140); Potassium 3.3 mmol/L (3.5-5.1); Protein, Total 7.2 g/dL (6.4-8.2); Sodium Level 137 mmol/L (136-145)
== END ==
PROVIDERS: PCP Physician Assistant
DX: O09.92 Supervision of high risk pregnancy, unspecified, second trimester (principal); O36 Maternal care for other fetal problems; O99.891 Other specified diseases and conditions complicating pregnancy; M54.9 Dorsalgia, unspecified; Z3A.00 Weeks of gestation of pregnancy not specified
CPT/HCPCS: 36415; 80053; 81001; 82950; 85027; 86850; 86870; 86900; 86901; 87086; 87088

== ENCOUNTER → 2021-11-15 08:07 | Outpatient (CLI) | payer MEDICAID, SELFPAY ==
[2021-11-15 09:01] LABS: Glucose GTT-Gestation. Fasting 91 mg/dL (<105)
[2021-11-15 10:00] LABS: Glucose GTT-Gestational 1 Hr 155 mg/dL (<190)
[2021-11-15 11:13] LABS: Glucose GTT-Gestational 2 Hr 124 mg/dL (<165)
[2021-11-15 12:49] LABS: Glucose GTT-Gestational 3 Hr 101 L (<145)
== END ==
PROVIDERS: PCP Physician Assistant
DX: O99.810 Abnormal glucose complicating pregnancy (principal); Z3A.00 Weeks of gestation of pregnancy not specified
CPT/HCPCS: 36415; 82951; 82952

== ENCOUNTER → 2021-11-26 09:16 | Outpatient (CLI) | payer MEDICAID, SELFPAY ==
[2021-11-26 09:47] LABS: Hematocrit 34.1 % (37-47); Hemoglobin 11.3 g/dL (12.0-15.0); Mean Corp Hgb Conc 33.1 g/dL (32-36); Mean Corpuscular Volume 96.6 fL (81-99); Mean Platelet Vol. 11.9 fl (6.2-12.0); Platelet Count 191 K/mm3 (150-450); RBC Distribution Width CV 13.2 % (11.6-14.6); RBC Distribution Width SD 46.5 fl (35.1-43.9); Red Blood Count 3.53 M/mm3 (4.2-5.4); White Blood Count 15.7 K/mm3 (4.4-11.0)
[2021-11-26 10:24] LABS: ALB/GLOB Ratio 0.7 RATIO (0.9-2.4); AST(SGOT) 10 U/L (15-37); Alanine Aminotransfer ALT/SGPT 11 U/L (13-56); Albumin, Serum 2.9 g/dL (3.2-5.0); Alkaline Phosphatase 102 U/L (45-117); Anion Gap 5 (5-15); BUN 5 mg/dL (7-18); BUN/Creat Ratio 8.8 RATIO (10-20); Calcium,Total 8.6 mg/dL (8.5-10.1); Chloride 107 mmol/L (98-107); Creatinine, Serum 0.57 mg/dL (0.55-1.02); EST Glomerular Filtration Rate 137 mL/min (>60); Est Glom Filt Rate - Afr Amer 166 mL/min (>60); Globulin 3.9 g/dL (2.2-4.2); Glucose 85 mg/dL (74-106); Protein, Total 6.8 g/dL (6.4-8.2); Sodium Level 137 mmol/L (136-145)
[2021-11-26 10:58] LABS: Protein, Urine (Random) 17.3 mg/dL (<11.9); Protein:Creat Ratio 317 mg/g CRE (0-200)
== END ==
PROVIDERS: PCP Physician Assistant
DX: O12.13 Gestational proteinuria, third trimester (principal); O09.93 Supervision of high risk pregnancy, unspecified, third trimester; O26.893 Other specified pregnancy related conditions, third trimester; M54.9 Dorsalgia, unspecified; Z3A.00 Weeks of gestation of pregnancy not specified; Z87.448 Personal history of other diseases of urinary system
CPT/HCPCS: 36415; 80053; 82570; 84156; 85027

== ENCOUNTER 2021-12-03 09:26 | Outpatient (CLI) | payer MEDICAID, SELFPAY ==
[2021-12-03 09:57] VITALS: BMI 33.2
[2021-12-03] MEDS: Betamethasone/Betamethasone 30 MG/5 ML Vial 12 MG IM (10:22)
[2021-12-03 10:23] LABS: Absolute Lymphocyte Count 2.56 X10^3/uL (0.83-4.51); Absolute Neutrophil Count 9.3 X10^3/uL (2.0-7.7); Basophil# 0.05 X10^3/uL; Basophil% 0.4 % (0-1); Eosinophil# 0.11 X10^3/uL; Eosinophils% 0.8 % (0-5); Hematocrit 34.3 % (37-47); Hemoglobin 11.5 g/dL (12.0-15.0); Lymphocyte # 2.56 X10^3/ul (0.83-4.51); Lymphocyte % 19.8 % (19-41); Mean Corp Hgb Conc 33.5 g/dL (32-36); Mean Corpuscular Hgb 32.2 pg (27.0-32.0); Mean Corpuscular Volume 96.1 fL (81-99); Mean Platelet Vol. 12.4 fl (6.2-12.0); Monocyte# 0.69 X10^3/uL; Monocyte% 5.3 % (0-10); NRBC Flagged by Analyzer 0 % (0-5); Neutrophil # 9.28 X10^3/uL (2.7-7.7); Neutrophil % 71.6 % (47-70); Platelet Count 192 K/mm3 (150-450); RBC Distribution Width SD 46.1 fl (35.1-43.9); Red Blood Count 3.57 M/mm3 (4.2-5.4)
[2021-12-03 10:59] LABS: ALB/GLOB Ratio 0.8 RATIO (0.9-2.4); AST(SGOT) 8 U/L (15-37); Alanine Aminotransfer ALT/SGPT 11 U/L (13-56); Albumin, Serum 2.9 g/dL (3.2-5.0); Alkaline Phosphatase 103 U/L (45-117); Anion Gap 6 (5-15); BUN 4 mg/dL (7-18); BUN/Creat Ratio 7.1 RATIO (10-20); Calcium,Total 8.4 mg/dL (8.5-10.1); Chloride 108 mmol/L (98-107); Creatinine, Serum 0.56 mg/dL (0.55-1.02); EST Glomerular Filtration Rate 140 mL/min (>60); Est Glom Filt Rate - Afr Amer 169 mL/min (>60); Estimated Creatinine Clearance 116.89 ml/min; Globulin 3.8 g/dL (2.2-4.2); Glucose 86 mg/dL (74-106); LDH 114 U/L (84-246); Potassium 3.7 mmol/L (3.5-5.1); Protein, Total 6.7 g/dL (6.4-8.2); Sodium Level 137 mmol/L (136-145)
--- NOTE | 2021-12-03 16:42 | OB.TRI.PN ---
Progress Notes Date of Service: 12/03/21 Progress Note: celestone given for prematurity Laboratory Studies: Laboratory Tests 12/03/21 12/03/21 Range/Units 09:32 09:32 WBC 13.0 H (4.4-11.0) K/mm3 RBC 3.57 L (4.2-5.4) M/mm3 Hgb 11.5 L (12.0-15.0) g/dL Hct 34.3 L (37-47) % MCV 96.1 (81-99) fL MCH 32.2 H (27.0-32.0) pg MCHC 33.5 (32-36) g/dL RDW Std Deviation 46.1 H (35.1-43.9) fl RDW Coeff of Kristin 13.0 (11.6-14.6) % Plt Count 192 (150-450) K/mm3 MPV 12.4 H (6.2-12.0) fl Immature Gran % (Auto) 2.100 H (0.0-0.9) % Neut % (Auto) 71.6 H (47-70) % Lymph % (Auto) 19.8 (19-41) % Avery % (Auto) 5.3 (0-10) % Eos % (Auto) 0.8 (0-5) % Baso % (Auto) 0.4 (0-1) % Absolute Neuts (auto) 9.3 H (2.0-7.7) X10^3/uL Absolute Lymphs (auto) 2.56 (0.83-4.51) X10^3/uL Nucleated RBC % 0 (0-5) % Sodium 137 (136-145) mmol/L Potassium 3.7 (3.5-5.1) mmol/L Chloride 108 H (98-107) mmol/L Carbon Dioxide 23.0 (21.0-32.0) mmol/L Anion Gap 6 (5-15) BUN 4 L (7-18) mg/dL Creatinine 0.56 (0.55-1.02) mg/dL Estim Creat Clear Calc 116.89 ml/min Est GFR (MDRD) Af Amer 169 (>60) mL/min Est GFR (MDRD) Non-Af 140 (>60) mL/min BUN/Creatinine Ratio 7.1 L (10-20) RATIO Glucose 86 (74-106) mg/dL Uric Acid 4.0 (2.6-6.0) mg/dL Calcium 8.4 L (8.5-10.1) mg/dL Total Bilirubin 0.30 (0.20-1.00) mg/dL AST 8 L (15-37) U/L ALT 11 L (13-56) U/L Alkaline Phosphatase 103 (45-117) U/L Lactate Dehydrogenase 114 (84-246) U/L Total Protein 6.7 (6.4-8.2) g/dL Albumin 2.9 L (3.2-5.0) g/dL Globulin 3.8 (2.2-4.2) g/dL Albumin/Globulin Ratio 0.8 L (0.9-2.4) RATIO Charges/Coding Procedures Urinary/Genital [id number]: No Charge
== END 2021-12-03 23:59 | disposition home or self-care (01) ==
LOC: LAB 09:29 → WPOUT 09:57 → WP 09:57
PROVIDERS: PCP Physician Assistant; Visit Provider Obstetrics & Gynecology
DX: O60.00 Preterm labor without delivery, unspecified trimester (principal); Z3A.00 Weeks of gestation of pregnancy not specified
CPT/HCPCS: 36415; 80053; 83615; 84550; 85025; 87081; 96372; 99218; G0378; J0702

== ENCOUNTER 2021-12-04 10:28 | Outpatient (CLI) | payer MEDICAID, SELFPAY ==
[2021-12-04 10:45] VITALS: BP 116/60; PULSE 108; RESP 14; TEMP 36.7; O2SAT 99; BMI 33.0
[2021-12-04] MEDS: Betamethasone/Betamethasone 30 MG/5 ML Vial 12 MG IM (11:09)
[2021-12-04 11:27] LABS: 24 Hour Urine Protein 205.4 mg/24HR (<150 MG/24HR); 24HR. UA Prot. Total Volume 2075 mL; Urine Protein (24 Hour) 9.9 mg/dL (<11.9)
--- NOTE | 2021-12-04 14:08 | OB.TRI.PN ---
Progress Notes Date of Service: 12/04/21 Progress Note: celestone given for prematurity Laboratory Studies: Laboratory Tests 12/04/21 Range/Units 10:34 Urine Collection Time 24.0 (24.0) HOURS Timed Urine Volume 2075 mL Ur Total Protein 24 Hr 205.4 H (<150 MG/24HR) mg/24HR Urine Total Protein 9.9 (<11.9) mg/dL
== END 2021-12-04 23:59 | disposition home or self-care (01) ==
LOC: LAB 10:32 → WPOUT 10:42 → WP 10:43
PROVIDERS: PCP Physician Assistant; Referring Provider Obstetrics & Gynecology; Visit Provider Obstetrics & Gynecology
DX: O60.00 Preterm labor without delivery, unspecified trimester (principal); Z3A.00 Weeks of gestation of pregnancy not specified
CPT/HCPCS: 81050; 84156; 96372; 99218; G0378; J0702

== ENCOUNTER 2021-12-08 16:35 | Inpatient (IN) | payer MEDICAID, SELFPAY ==
[2021-12-08] VITALS (17 sets, daily range): BP systolic 108–136; BP diastolic 60–94; PULSE 72–122; RESP 12–20; TEMP 36.1–36.8; O2SAT 93–100; BMI 33.5
[2021-12-08] MEDS: Lactated Ringers 1,000 ML 999 ML IV (16:35)
[2021-12-08 17:00] LABS: Absolute Neutrophil Count 16.3 X10^3/uL (2.0-7.7); Basophil# 0.13 X10^3/uL; Basophil% 0.6 % (0-1); Eosinophil# 0.12 X10^3/uL; Eosinophils% 0.5 % (0-5); Hematocrit 35.6 % (37-47); Hemoglobin 12.6 g/dL (12.0-15.0); Lymphocyte % 18.3 % (19-41); Mean Corp Hgb Conc 35.4 g/dL (32-36); Mean Corpuscular Hgb 34.1 pg (27.0-32.0); Mean Corpuscular Volume 96.2 fL (81-99); Mean Platelet Vol. 12.5 fl (6.2-12.0); Monocyte# 0.91 X10^3/uL; Monocyte% 4.1 % (0-10); NRBC Flagged by Analyzer 0.1 % (0-5); Neutrophil # 16.29 X10^3/uL (2.7-7.7); Neutrophil % 72.7 % (47-70); POSITIVE MORPHOLOGY YES; Platelet Count 219 K/mm3 (150-450); RBC Distribution Width SD 45.9 fl (35.1-43.9); White Blood Count 22.4 K/mm3 (4.4-11.0)
--- NOTE | 2021-12-08 17:00 | PCM.HP.OB ---
HPI - General General Date of Admission: 12/08/21 HPI Narrative ELMER LOONEY, is a 26 @ 34 weeks 2 days who presents to l&D with moderate vaginal bleeding. She has been seen by MFM and using our office at [place] for NSTs. she was seeing them because she states that during her last she suffered a loss at 34 weeks due to an abruption and previa. This she does not have a placental previa but is being monitored closely for GDM and mildly elevated bp's. 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 The mother was very rude and demanding. The patient was counseled appropriately on the risks, benefits and alternatives (including a short moment to monitor baby) and consented to delivery via section Maternal Data Information CALLI Calculator Estimated Delivery Date Method Current WG Current Estimate 01/17/22 Manual 34w 2d PFSH [facility] Medical History (Updated 12/05/21 @ 16:21 by Birgit Contreras) Abnormal results of thyroid function studies Multinodular goiter Nodular goiter Placental abruption Thyroiditis Home Medications aspirin 81 mg tablet,delayed release 81 mg PO DAILY 10/19/21 [History Last Taken 1 Day Ago ~12/07/21] prenat.vits,stephanie,zjf-vdmi-rjivr 1 tab PO DAILY 10/19/21 [History Last Taken 1 Day Ago ~12/07/21] calcium phos,dibas-vitamin D3 [Vitamin D (with calcium)] tab PO DAILY 11/05/21 [History Last Taken 1 Day Ago ~12/07/21] Allergy/AdvReac Type Severity Reaction Status Date / Time Sulfa (Sulfonamide Allergy Hives Verified 12/08/21 16:47 Antibiotics) Family History Mother Thyroid disorder Father Hypertension Grandmother Heart disease Diabetes Grandfather Heart disease Hypertension Diabetes Cancer Surgical History Delivery by section H/O dilation and curettage Hx of cholecystectomy S/P appendectomy Social History housing: house Smoking Status: Current every day smoker second hand exposure: Yes alcohol intake: never substance use type: does not use additional social history: - [place] History 4 Elective abortions Hx Para 2 Spontaneous abortions 2 Hx # Term Pregnancies Ectopic pregnancies Hx # Pregnancies Multiple births # of living children 2 Past Pregnancies Del. Date Name GA/Weeks Outcome Route Bth Weight Infant Gen Labor Lgth Anesthesia Del Locatn Provider FOB Unknown 2015 [place] 41 live - full term 7lb 2 ounces Female epidural SM 04/15/18 Suction D&C 12/05/20 Carmelita Dutta (oct) 39 live - full term Female [facility] Marcanthony Delivery Date: Blood Clot/ hemorrhage after delivery Annika Delgado Delivery Date: 04/15/18 No notes to display Delivery Date: 12/05/20 Abruption, maternal hemorrhage and DIC 39w4d stat CS Apgars 035, transfused 4 units blood. Transport to [facility] cord pH 6.6 Birgit Contreras Constitutional Constitutional: Denies change in weight, fatigue, fever(s), headache(s), poor appetite or weakness Eyes Eyes: Denies blurry vision, change in vision, seeing flashes or spots in vision ENT HEENT: Denies dizziness, headache(s), loss taste/smell or sore throat Cardiovascular Cardiovascular: Denies chest pain, dizziness, dyspnea, irregular heart rhythm, leg edema, palpitations, rapid heart rate or vomiting Respiratory/Chest Respiratory/Chest: Denies chest tightness, cough, dyspnea or breast pain Gastrointestinal Gastrointestinal: Denies abdominal pain, anorexia, constipation, cramping, diarrhea, hemorrhoids, vomiting or weight changes Genitourinary Genitourinary: Denies dysuria, flank pain, genital lesions, genital pain, urinary frequency or urinary urgency Musculoskeletal Musculoskeletal: Denies back pain, difficulty walking, joint pain, limited range of motion, muscle cramps or numbness Integumentary Integumentary: Denies lesions or unusual bruising Neurologic Neurologic: Denies abnormal movements, abnormal speech, dizziness, numbness, seizure-like activity or syncope Psychiatric Psychiatric: Denies anxiety, behavioral changes, change in appetite, change in libido, cognitive impairment, confusion, depression, difficulty concentrating, hallucinations or suicidal thoughts Endocrine Endocrinology: Denies excessive sweating, polydipsia or polyuria Hematologic/Lymphatic Hematologic/Lymphatic: Denies easy bleeding, easy bruising or lymphadenopathy Allergic/Immunologic Allergic/Immunologic: Denies itchy eyes, lip swelling, seasonal rhinorrhea, rhinitis, throat swelling, tongue swelling, eczemia, wheezing or asthma Vital Signs Vital Signs Vital Signs: 12/08/21 16:52 Pulse Rate 108 H Pulse Ox 100 Weight Weight: 177 lb 11.081 oz Body Mass Index (BMI) 33.5 Physical Exam Const alert, oriented x3, no apparent distress and healthy appearing General Appearance: cooperative; Negative for anxious HEENT normocephalic Face and Sinus: normal facial exam Eyes EOMs intact bilaterally and no scleral icterus General Eye: normal appearance of both eyes Neck full ROM and supple Lymph Lymphatic: no lymphadenopathy noted Chest Chest: abnormal inspection of the chest Resp normal respiratory effort Effort and Inspection: able to speak in complete sentences Cardio regular rate GI soft to palpation and non-tender Inspection: gravid Palpation: soft; Negative for tender external exam normal Amniotic Fluid: other cx is 1/50/-3. there is mild blood and a slight amount of blood from the cerivx. no heavy active bleeding is present. Back/Spine no CVA tenderness Extremity normal to inspection, full ROM and no clubbing, cyanosis or edema General Extremity: Negative for calf tenderness or edema Skin Lesions: no lesions Rashes: no rashes Psych mental status grossly normal Labs Labs Labs: Blood Type B POSITIVE Antibody Screen POSITIVE H Hct 34.3 % (37-47) L Hgb 11.5 g/dL (12.0-15.0) L Obstetrics US Syphilis Total Ab Non-reactive Rubella IgG Antibody Reactive (Nonreactive) Hep Bs Antigen Non-Reactive (Nonreactive) Neisseria gonorrhoeae DNA (CONCHA) Negative (Negative) HIV 1&2 Antibody Non-Reactive (Nonreactive) C.trachomatis DNA (PCR) Negative (Negative) Glucose 1 Hr 50 gm 132 mg/dL (70-140) Rhogam given: No Miscellaneous Test Assessment & Plan (1) Abdominal cramping: COMMENT: cervix closed, no contractions. dc home fu with MFM (2) Abnormal results of thyroid function studies: (3) Nodular goiter: (4) History of delivery: COMMENT: plan RLTCS (5) Loss of infant: COMMENT: Carmelita Dutta 3 months of age due to HIE from massive abruption at (6) Maternal atypical antibody affecting in first trimester: COMMENT: anti [place], titer to low to titer- needs redrawn on 07/23, [facility] consult (7) Supervision of high-risk : COMMENT: CALLI ROCIO [facility] ([facility] [facility] [place] (8) History of placenta abruption: COMMENT: [facility] consult for recommendations; NEG APL (9) : COMMENT: GBS neg, NIPT- low risk IT'S A BOY!, carrier screening neg PLAN: plan for emergent section now for presumed placental abruption.
[2021-12-08 17:03] LABS: Differential Indicated SCAN CRITERIA MET
[2021-12-08] MEDS: Sodium Citrate/Citric Acid 30 ML UDC PO (17:11)
[2021-12-08 17:14] LABS: ALB/GLOB Ratio 0.8 RATIO (0.9-2.4); AST(SGOT) 11 U/L (15-37); Alanine Aminotransfer ALT/SGPT 17 U/L (13-56); Albumin, Serum 3.3 g/dL (3.2-5.0); Alkaline Phosphatase 121 U/L (45-117); Anion Gap 7 (5-15); BUN 8 mg/dL (7-18); Calcium,Total 9.5 mg/dL (8.5-10.1); Chloride 102 mmol/L (98-107); Creatinine, Serum 0.72 mg/dL (0.55-1.02); EST Glomerular Filtration Rate 104 mL/min (>60); Est Glom Filt Rate - Afr Amer 126 mL/min (>60); Estimated Creatinine Clearance 90.92 ml/min; Globulin 4.1 g/dL (2.2-4.2); Glucose 126 mg/dL (74-106); Potassium 3.1 mmol/L (3.5-5.1); Protein, Total 7.4 g/dL (6.4-8.2); Sodium Level 136 mmol/L (136-145)
[2021-12-08] MEDS: Cefazolin 2 GM in 0.9% Normal Saline 100 ML IV (17:15)
[2021-12-08 17:24] LABS: Prothrombin Time (Protime)PT. 12.7 SECONDS (11.7-14.9)
[2021-12-08 17:25] LABS: Partial Thromboplast Time 24.7 Seconds (24.1-36.2)
[2021-12-08 17:26] LABS: Differential Comment SCANNED
[2021-12-08] MEDS: Methylergonovine 0.2 MG/ML Ampul IM (17:27)
[2021-12-08 17:29] LABS: Fibrinogen 459 mg/dl (203-444)
--- NOTE | 2021-12-08 18:02 | EX.PCM.OBRPT ---
Assessment & Plan (1) Nodular goiter: (2) History of delivery: COMMENT: plan RLTCS (3) Loss of : COMMENT: Carmelita Dutta 3 months of age due to HIE from massive abruption at (4) Maternal atypical antibody affecting in first trimester: COMMENT: anti [place], titer to low to titer- needs redrawn on 07/23, [facility] consult (5) Supervision of high-risk : COMMENT: CALLI [facility] [place] (Carmelita Dutta-oct) [place] (6) History of placenta abruption: COMMENT: [facility] consult for recommendations; NEG APL (7) : COMMENT: GBS neg, NIPT- low risk IT'S A BOY!, carrier screening neg Maternal Data Information CALLI Calculator Estimated Delivery Date Method Current WG Current Estimate 01/17/22 Manual 34w 2d Details Operative Information Date of Procedure: 12/08/21 Pre-Operative Diagnosis: @ 34 weeks 2 days , placental abruption, prior section Post-Operative Diagnosis: @ 34 weeks 2 days , placental abruption, prior section Indications Narrative: Patient presented with blood running down her legs and stating that her last baby due to abruption. She denied cramping. Cx was 1 cm and mild blood was seen coming from the Os. Bedside ultrasound showed an intact posterior placenta. Decision was made to proceed with section Classification: Stat Procedure Type: low transverse photographic specialist #1: Tenisha Sanches Type of Anesthesia: Spinal Anesthesiologist: Batool Hernandez Antibiotic Given: Ancef 2 grams IV x1 Estimated Blood Loss: 500cc Fluids Replaced: 1000cc Procedure Start Time: 17:20 Time of Delivery: 17:24 Findings Description of Procedure: Spinal anesthesia was placed without difficulty. Askew catheter was placed. The patient was placed in the dorsal supine position with leftward tilt. Patient was prepped and draped in the normal sterile fashion. Pfannenstiel skin incision was made with the scalpel and carried through to the underlying layer of fascia with the scalpel. Fascia was nicked in the midline and the incision extended laterally. The rectus bellies were dissected off superiorly and inferiorly with out complication both sharply and bluntly. The peritoneum was entered digitally. The incision was stretched and a low transverse uterine incision was made with the scalpel. The 's head was delivered atraumatically followed by the anterior and posterior shoulders without complication the rest of the delivered. The cord was clamped and cut and the was handed off to awaiting nurse. The placenta was delivered spontaneously immediately following and was noted to be intact and have a three-vessel cord. There was noted to be approximate 10% abruption. The uterus was exteriorized cleared of all clots and debris, and the incision was closed in a double layer closure using #1 Monocryl. The ovaries and fallopian tubes were noted to be within normal limits. The uterus was returned to the maternal abdomen and gutters were cleared of all clots and debris. The peritoneum was closed with 3-0 Monocryl in a running fashion. Gloves were changed prior to fascial closure. Fascia was closed with 0 PDS in a running fashion. Subcutaneous tissue was copiously irrigated and the skin was closed with 3-0 Monocryl in a subcuticular fashion. Mepilex dressing was applied without complication. Patient was taken to recovery in stable condition. It was discussed with the patient that based on the clinical information obtained during this encounter, combined with her history, at this time I would recommend repeat sections for future deliveries if further pregnancies are desired Presentation: Positive for Vertex Amniotic Membrane Rupture Type: Artificial Amniotic Fluid Description: Clear Placenta Disposition: [facility] Cord Vessel Description: 3 Vessels Cord Entanglement: None Cord Gases: ABG and VBG A Gender: Male (1 minute): 8 (5 minute): 8 Delayed Cord Clamping: No Complications Risks of Surgery Discussed w/Patient: Bleeding, Anesthesia Risks and Infection Complications: none Multi Select Codes Urinary/Genital Urinary/Genital CPT Codes: 32817 delivery+ Care([facility])
[2021-12-08] MEDS: Oxytocin 30 units/NS 500 ml 30 UNITS/500 ML IV.SOLN 167 UNITS IV (18:05)
--- NOTE | 2021-12-08 18:12 | PCM.DC ---
Discharge Instructions Diet Discharge Diet: No restrictions Activity Discharge Activity: May Not Drive (for 2 weeks or while taking narcotic pain medications.), May Shower and May Take a Tub Bath (in 7 days.) May resume sexual activity in: 4-6 weeks Weight Bearing Status: Full weight bearing Lifting Restrictions: 20 pounds Dressing / Incision Call your doctor if your incision/area has: Continuous Slow Oozing, Sudden Increased Bleeding, Increased Pain/ Swelling, Increased Redness and Foul Smelling Discharge Call your doctor if you observe: Fever of 101 or Higher and Using more than 1 pad per hour Suture Line Care: Avoid Pulling/Pushing and Avoid Pinching/Bending Cleanse incision/area with: Soap & Water and Keep Dressing Clean & Dry Follow Up Care Please Follow Up With: Karla Rodrigues DO When: Call [phone] to make an appointment for an incision check in 1-2 weeks. Test Results: Test results from this visit will be discussed in further detail at your follow-up appointment, if applicable. Discharge Plan Admission Admit Date/Time: 12/08/21 16:35 Primary Reason for Your Visit: section Attending Provider: Karla Rodrigues Primary Care Provider: Dusty Dewey Discharge Orders/Prescriptions Prescriptions: New oxycodone-acetaminophen [Percocet] 5-325 mg tablet 1 tab PO Q4H PRN (Reason: pain) 7 Days Qty: 28 RF: 0 ibuprofen 800 mg tablet 800 mg PO Q8H PRN (Reason: pain) 7 Days Qty: 30 RF: 0 Continued prenat.vits,stephanie,[id number]-fvzw-[id number] Tablet 1 tab PO DAILY RF: 0 aspirin [Adult Low Dose Aspirin] 81 mg tablet,delayed release (DR/EC) 81 mg PO DAILY RF: 0 calcium phos,dibas-vitamin D3 77-400 mg-unit Tablet PO DAILY RF: 0 Referrals / Follow Up: Dusty Dewey PA [Primary Care Provider] - Disposition Disposition (needs filled in before D/C Order can be placed): Home, Self Care
--- NOTE | 2021-12-08 19:15 | NURSING ---
Report received from Niurka KAUR, taking over pt care at this time.
[2021-12-08] MEDS: Acetaminophen 500 MG Tablet 1000 MG PO (19:43)
[2021-12-08] MEDS: Ketorolac 30 MG/ML Syringe IV (19:44)
[2021-12-08] MEDS: Lactated Ringers 1,000 ML 100 ML IV (21:19)
--- NOTE | 2021-12-08 21:45 | NURSING ---
Rubella and RPR corrected from initial admission. Corn Husk Baler aware of correct results.
[2021-12-08] MEDS: Potassium Chloride Oral Tablet 20 MEQ PO (21:52)
[2021-12-09 02:05] VITALS: BP 106/51; PULSE 71; RESP 18; TEMP 36.6; O2SAT 97
[2021-12-09] MEDS: Acetaminophen 500 MG Tablet 1000 MG PO ×3 (02:07→14:01)
[2021-12-09] MEDS: 0.9% Saline Lock 10 ML Syringe IV (02:10)
[2021-12-09] MEDS: Ketorolac 30 MG/ML Syringe IV ×3 (02:10→13:57)
[2021-12-09 04:22] VITALS: BP 122/66; PULSE 70; RESP 18; TEMP 36.3; O2SAT 98
--- NOTE | 2021-12-09 04:22 | NURSING ---
Half dollar sized clot noted with assessment. Pt education provided.
[2021-12-09] MEDS: Heparin Injection (Vial) 5,000 UNIT/ML VIAL 5000 UNIT SC (06:19)
[2021-12-09 06:29] LABS: Hematocrit 30.4 % (37-47); Hemoglobin 10.3 g/dL (12.0-15.0); Mean Corp Hgb Conc 33.9 g/dL (32-36); Mean Corpuscular Hgb 33.2 pg (27.0-32.0); Mean Corpuscular Volume 98.1 fL (81-99); Mean Platelet Vol. 12.3 fl (6.2-12.0); Platelet Count 171 K/mm3 (150-450); RBC Distribution Width CV 13.2 % (11.6-14.6); RBC Distribution Width SD 46.5 fl (35.1-43.9); White Blood Count 20.1 K/mm3 (4.4-11.0)
[2021-12-09 06:30] VITALS: PULSE 71; RESP 18; O2SAT 97
[2021-12-09 06:57] LABS: Anion Gap 4 (5-15); BUN 6 mg/dL (7-18); BUN/Creat Ratio 11.9 RATIO (10-20); Calcium,Total 8.2 mg/dL (8.5-10.1); Chloride 107 mmol/L (98-107); Creatinine, Serum 0.51 mg/dL (0.55-1.02); EST Glomerular Filtration Rate 158 mL/min (>60); Est Glom Filt Rate - Afr Amer 191 mL/min (>60); Estimated Creatinine Clearance 128.35 ml/min; Glucose 112 mg/dL (74-106); Potassium 3.9 mmol/L (3.5-5.1); Sodium Level 137 mmol/L (136-145)
[2021-12-09] MEDS: Senna/Docusate Sodium 1 Tablet PO (08:02)
[2021-12-09 08:30] VITALS: BP 113/71; PULSE 71; RESP 18; TEMP 36.1; O2SAT 98
--- NOTE | 2021-12-09 11:20 | PCM.PN.OB ---
Subjective Subjective Patient doing well without complaints. Tolerating PO. Ambulating and voiding without difficulty. Feeding well. Denies chest pain, shortness of breath, calf pain/swelling, fevers, chills, lightheadedness. Objective Data Objective Data Vital Signs: Vital Signs Temp Pulse Resp BP Pulse Ox 97.0 F L 71 18 113/71 98 12/09/21 08:30 12/09/21 08:30 12/09/21 08:30 12/09/21 08:30 12/09/21 08:30 Oxygen Delivery Method Room Air Weight: 177 lb 11.081 oz Body Mass Index (BMI) 33.5 Intake & Output: Intake and Output for Last 24 Hours 12/07/21 12/08/21 12/09/21 23:59 23:59 23:59 Intake Total 1710 / 1710 1520 / 1520 Output Total 1300 / 1300 1100 / 1100 Balance 410 / 410 420 / 420 Lab / Micro Data Result Diagrams: 12/09/21 06:00 12/09/21 06:00 Labs: Laboratory Results - last 24 hr 12/08/21 16:35: WBC 22.4 H, RBC 3.70 L, Hgb 12.6, Hct 35.6 L, MCV 96.2, MCH 34.1 H, MCHC 35.4, RDW Std Deviation 45.9 H, RDW Coeff of Kristin 13.0, Plt Count 219, MPV 12.5 H, Immature Gran % (Auto) 3.800 H, Neut % (Auto) 72.7 H, Lymph % (Auto) 18.3 L, [place] % (Auto) 4.1, Eos % (Auto) 0.5, Baso % (Auto) 0.6, Absolute Neuts (auto) 16.3 H, Absolute Lymphs (auto) 4.10, Nucleated RBC % 0.1, Differential Comment SCANNED 12/08/21 16:35: Blood Type B POSITIVE, Antibody Screen TNP, Crossmatch See Detail 12/08/21 16:35: PT 12.7, INR 1.0, APTT 24.7, Fibrinogen 459 H 12/08/21 16:35: Sodium 136, Potassium 3.1 L, Chloride 102, Carbon Dioxide 27.0, Anion Gap 7, BUN 8, Creatinine 0.72, Estim Creat Clear Calc 90.92, Est GFR (MDRD) Af Amer 126, Est GFR (MDRD) Non-Af 104, BUN/Creatinine Ratio 11.0, Glucose 126 H, Calcium 9.5, Total Bilirubin 0.30, AST 11 L, ALT 17, Alkaline Phosphatase 121 H, Total Protein 7.4, Albumin 3.3, Globulin 4.1, Albumin/Globulin Ratio 0.8 L 12/08/21 16:35: Antibody Screen NEGATIVE 12/09/21 06:00: WBC 20.1 H, RBC 3.10 L, Hgb 10.3 L, Hct 30.4 L, MCV 98.1, MCH 33.2 H, MCHC 33.9, RDW Std Deviation 46.5 H, RDW Coeff of Kristin 13.2, Plt Count 171, MPV 12.3 H 12/09/21 06:00: Sodium 137, Potassium 3.9, Chloride 107, Carbon Dioxide 26.0, Anion Gap 4 L, BUN 6 L, Creatinine 0.51 L, Estim Creat Clear Calc 128.35, Est GFR (MDRD) Af Amer 191, Est GFR (MDRD) Non-Af 158, BUN/Creatinine Ratio 11.9, Glucose 112 H, Calcium 8.2 L Micro: Microbiology 12/08/21 16:35 Nasal Secretion SARS-CoV-2 Antigen (Rapid) - Final ROS Constitutional Constitutional: Denies chills, fatigue, fever(s), poor appetite or weakness Eyes Eyes: Denies blurry vision, change in vision, seeing flashes or spots in vision ENT HEENT: Denies dizziness, headache(s), loss taste/smell or sore throat Cardiovascular Cardiovascular: Denies chest pain, dizziness, dyspnea, irregular heart rhythm, palpitations or rapid heart rate Respiratory/Chest Respiratory/Chest: Denies chest tightness, cough, dyspnea or breast pain Gastrointestinal Gastrointestinal: Denies abdominal pain, constipation or vomiting Genitourinary Genitourinary: Denies dysuria or flank pain Musculoskeletal Musculoskeletal: Denies difficulty walking, joint pain, limited range of motion or numbness Neurologic Neurologic: Denies abnormal movements, abnormal speech, dizziness, numbness, seizure-like activity or syncope Psychiatric Psychiatric: Denies anxiety, behavioral changes, change in appetite, confusion, depression or suicidal thoughts Physical Exam Const alert, oriented x3 and no apparent distress General Appearance: cooperative and comfortable Resp normal respiratory effort Cardio regular rate GI normal to inspection, nondistended, normoactive bowel sounds GI Narrative: uterus is firm below umbilicus, incision is clean, dry, and intact Palpation: soft Back/Spine no CVA tenderness and thoraco-lumbar ROM normal Extremity normal to inspection, no clubbing, cyanosis or edema, no calf tenderness and no pedal edema Psych mental status grossly normal, thought process normal, cooperative, affect normal, speech normal, activity/motor behavior normal, denies homicidal ideation and denies suicidal ideation Assessment & Plan (1) : COMMENT: GBS neg, NIPT- low risk IT'S A BOY!, carrier screening neg (2) History of placenta abruption: COMMENT: MFM consult for recommendations; NEG APL (3) Supervision of high-risk : COMMENT: CALLI PC [place] (Carmelita Dutta-oct) [place] (4) Maternal atypical antibody 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 dc home fu with MFM (8) Abnormal results of thyroid function studies: (9) Nodular goiter: PLAN: s/p LTCS PPD # 1 1. routine post care - placental abruption, emergent delivery at 34 weeks 2. breast feeding- support given 3. rh positive 4. rubella immune 5. no clinical documentation of Factor V Leiden def- pt states that that she tested positive for this disorder with MFM. orders were placed after her last but no results are in our system. Pt states that she was not on a blood thinner during the which is protocol for factor V leiden and h/o VTE event. Charges/Coding Multi Select Codes Visit Charges Visit Charges: 45435 Subs Hosp L3
[2021-12-09 12:14] VITALS: BP 113/75; PULSE 75; RESP 18; TEMP 36.1; O2SAT 97
[2021-12-09 16:25] VITALS: BP 116/56; PULSE 81; RESP 16; TEMP 36.9; O2SAT 99
== END 2021-12-09 17:00 | disposition home or self-care (01) | DRG 540 ==
PROVIDERS: Admitting Provider Obstetrics & Gynecology; PCP Physician Assistant; Visit Provider Obstetrics & Gynecology
DX: O34.211 Maternal care for low transverse scar from previous cesarean delivery (principal); O45.93 Premature separation of placenta, unspecified, third trimester; F17.200 Nicotine dependence, unspecified, uncomplicated; E04.9 Nontoxic goiter, unspecified; O99.334 Smoking (tobacco) complicating childbirth; Z37.0 Single live birth; O99.284 Endocrine, nutritional and metabolic diseases complicating childbirth; Z79.82 Long term (current) use of aspirin; Z3A.34 34 weeks gestation of pregnancy
CPT/HCPCS: 59050; 76815; 80048; 80053; 85025; 85027; 85384; 85610; 85730; 86850; 86870; 86900; 86901; 86902; 87426; 94660; 94799; 99218; J7120; A4216; G0378

== ENCOUNTER 2022-04-12 19:22 | Emergency (ER) | payer MEDICAID, SELFPAY ==
[2022-04-12 19:23] VITALS: BP 128/93; PULSE 100; RESP 16; TEMP 36.4; O2SAT 99; BMI 27.3
--- NOTE | 2022-04-12 20:07 | CT_ITS ---
INDICATION: Odynophasia EXAMINATION: CT NECK WITH CONTRAST - CT Soft Tissue Neck W/ Contrast Injection TECHNIQUE: Helically acquired images were obtained of the neck following IV contrast. A radiation dose optimization technique was used for this scan. IV Contrast dosage and agent: 100 mL of [id number]. COMPARISON: None. FINDINGS: Asymmetric enlargement left lingual tonsils compared to the right showing mild heterogeneity. No airway narrowing. There is hyperenhancement suggesting hyperemia of the pharyngeal mucosal space as well as the palatine and pharyngeal tonsils. No abscess or focal fluid collection suggested. Symmetric, within normal size limits submandibular lymph nodes. There are prominent, symmetric bilateral level 2 lymph nodes up to 11 mm in short axis. No significant hyperemic lymph nodes. These are grossly symmetric bilaterally. Several other smaller anterior cervical chain lymph nodes noted. Parotid and submandibular glands are within normal limits. Thyroid gland mildly prominent with areas of decreased heterogeneous density right left lower poles and right and left mid pole. Soft tissues of the neck are otherwise within normal limits. Vascular structures are normal with note of apparent anatomy two-vessel arch; left common carotid artery originates from the right brachiocephalic artery. Bilateral common carotid and vertebral arteries and internal carotid arteries are normal in appearance. Visualized intracranial vessels are within normal limits of the exam. Intracranial contents show no mass lesion or midline shift. No evidence of hemorrhage. Soft tissues of the neck and skull base are within normal limits. Minimal left maxillary sinus mucosal thickening. Well marginated bone density, with mild sclerosis, descending from the left medial wall of the sphenoid sinus suggesting sinonasal osteoma. This measures up to [address]/Soft Tissue Neck WITH Contrast IMPRESSION: Prominent palatine and pharyngeal tonsils showing mild hyperenhancement with asymmetric enlargement left lingual tonsils compared to the right. No airway narrowing. No fluid collection to suggest abscess or phlegmon. There is also hyperenhancement of the pharyngeal mucosal space. Mildly prominent anterior cervical chain lymph nodes likely reactive. Diffusely enlarged thyroid gland with areas of heterogeneous decreased density right and left lobes. Correlate physical exam and consider thyroid ultrasound. 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 Less likely fibro-osseous lesion such as fibrous dysplasia, could have this appearance. Consider short-term interval follow-up. Electronically Signed: Red Evans DO at 21:37 EDT ,
[2022-04-12 20:17] VITALS: BP 128/78; PULSE 66; RESP 14; O2SAT 100
[2022-04-12] MEDS: 0.9% Normal Saline 1,000 ML 1000 ML IV (20:30)
[2022-04-12] MEDS: Ketorolac 30 MG/ML Syringe IV (20:30)
[2022-04-12 20:41] LABS: Absolute Lymphocyte Count 3.23 X10^3/uL (0.83-4.51); Absolute Neutrophil Count 6.4 X10^3/uL (2.0-7.7); Basophil# 0.05 X10^3/uL; Basophil% 0.5 % (0-1); Eosinophils% 0.9 % (0-5); Hematocrit 39.6 % (37-47); Hemoglobin 13.4 g/dL (12.0-15.0); Lymphocyte # 3.23 X10^3/ul (0.83-4.51); Lymphocyte % 30.6 % (19-41); Mean Corp Hgb Conc 33.8 g/dL (32-36); Mean Corpuscular Hgb 30.5 pg (27.0-32.0); Mean Platelet Vol. 11.2 fl (6.2-12.0); Monocyte# 0.73 X10^3/uL; Monocyte% 6.9 % (0-10); NRBC Flagged by Analyzer 0 % (0-5); Neutrophil # 6.39 X10^3/uL (2.7-7.7); Neutrophil % 60.7 % (47-70); Platelet Count 271 K/mm3 (150-450); RBC Distribution Width CV 13.5 % (11.6-14.6); RBC Distribution Width SD 45.1 fl (35.1-43.9); White Blood Count 10.5 K/mm3 (4.4-11.0)
--- NOTE | 2022-04-12 20:49 | EX.ED.VIS.UR ---
HPI HPI - URI History of Present Illness Chief Complaint: Sore Throat Informant: patient Onset/Context/Timing Onset: Days (4) Context: Gradual Onset Timing: Continuous Quality: Sharp Location: Throat Worsened by: Swallowing Relieved by: - (Nothing) Associated Symptoms Associated Symptoms: Positive for Nasal Congestion, Headache and Sinus Pressure; Negative for Myalgias, Nausea, Vomiting, Diarrhea, Shortness of Breath, Chest Pain, Nonproductive cough, Hemoptysis and Productive Cough Narrative Narrative: Patient presents with a sore throat, earache, and eye infection that has been getting worse over the last 4 days. Patient states she had outpatient test for COVID-19 and influenza which were all negative. Patient states she had a fever of 101.7 earlier this week. Patient states her pain is mainly on the left side of her throat. Patient states her left ear hurts worse than her right. Patient admits to some redness in her right eye. Patient denies any discharge or drainage. Patient denies any blurry vision or double vision. ROS ROS ED Constitutional Constitutional ED: Reports fever(s); Denies chills Eyes Eyes: Denies blurry vision or change in vision ENT ENT ED: Reports ear pain and sore throat; Denies rhinorrhea Cardiovascular Cardiovascular: Denies chest pain or palpitations Respiratory/Chest Respiratory/Chest: Denies cough or dyspnea Gastrointestinal Gastrointestinal: Denies nausea or vomiting Genitourinary Genitourinary ED: Denies dysuria or hematuria Musculoskeletal Musculoskeletal: Reports neck pain; Denies back pain Integumentary Denies abscess or rash Neurologic Neurologic: Reports headache(s); Denies weakness Allergic/Immunologic Allergic/Immunologic ED: Denies mouth swelling or urticaria [facility] Medical History Abnormal results of thyroid function studies Blood clotting disorder Genital herpes affecting Gestational HTN History of blood transfusion History of blood transfusion Multinodular goiter Nodular goiter Placental abruption hemorrhage Pre-eclampsia Thyroid disorder Thyroiditis Home Medications aspirin 81 mg tablet,delayed release 81 mg PO DAILY 10/19/21 [History Last Taken 1 Day Ago ~12/07/21] prenat.vits,stephanie,bak-oooc-xvuti 1 tab PO DAILY 10/19/21 [History Last Taken 1 Day Ago ~12/07/21] cholecalciferol (vitamin D3) 50 mcg (2,000 unit) capsule 50 mcg PO DAILY 12/27/21 [History Last Taken Unknown] sertraline 50 mg tablet 50 mg PO DAILY #30 tab 01/09/22 [Rx Last Taken Unknown] Allergy/AdvReac Type Severity Reaction Status Date / Time Sulfa (Sulfonamide Allergy Hives Verified 04/12/22 19:24 Antibiotics) Family History Mother Thyroid disorder Father Hypertension Grandmother Heart disease Diabetes Grandfather Heart disease Hypertension Diabetes Cancer Surgical History Delivery by section H/O dilation and curettage Hx of cholecystectomy Previous section S/P appendectomy Social History housing: house Smoking Status: Light Smoker (<10/day) second hand exposure: Yes alcohol intake: never substance use type: does not use additional social history: - [place] EXAM Physical Exam Const Vital Signs: 04/12/22 19:23 04/12/22 20:17 Temperature 97.5 F L Temperature Source Temporal Pulse Rate 100 66 Respiratory Rate 16 14 Blood Pressure 128/93 H 128/78 H Blood Pressure Mean 104 94 Pulse Ox 99 100 Oxygen Delivery Method Room Air Room Air Positive well nourished and well developed General Appearance ED: well developed and NAD HEENT Reports moist mucous membranes HEENT Narrative: There is some mild erythema of the posterior pharynx. It is slightly worse on the left. Airway is patent. normocephalic External Auditory Canal: EAC's normal Tympanic Membrane ED: Yes TM's normal bilaterally Eyes PERRL and EOMs intact bilaterally Eyes Narrative: There is conjunctival injection on the right. There is no purulent discharge or drainage noted. Neck supple and no JVD Resp normal respiratory effort and clear to auscultation bilaterally Cardio Rate: regular rate Rhythm: regular rhythm GI non-tender Palpation: soft Neuro oriented x3, CN's II-XII intact bilaterally and no sensory deficits noted Sensorium / Orientation: alert Motor Exam: strength 5/5 throughout Psych mental status grossly normal MDM MDM MDM Narrative Medical decision making narrative: Patient was given IV fluids. CBC was within normal limits. Basic metabolic profile showed a mild hypokalemia of 3.1. CT scan of the soft tissue neck was obtained. There is prominent palatine and pharyngeal tonsils that are slightly larger on the left compared to the right. There is no abscess or phlegmon noted. There are mildly prominent anterior cervical lymph nodes. This was interpreted by the radiologist and reviewed by myself. Rapid strep was obtained and was negative. Patient was advised of her findings. Patient was advised that this is most likely a viral upper respiratory infection. However with her conjunctival injection of her right eye, I will cover her with antibiotic eyedrops. Patient was instructed to wash her hands thoroughly every time she touches her eye including placing the eyedrops. Patient was instructed to follow-up with her primary care physician in 3 to 5 days. Patient understood and was agreeable with the plan. All questions were answered. Lab Data Labs: Laboratory Results - last 24 hr 04/12/22 04/12/22 20:38 20:38 WBC 10.5 RBC 4.40 Hgb 13.4 Hct 39.6 MCV 90.0 MCH 30.5 MCHC 33.8 RDW Std Deviation 45.1 H RDW Coeff of Kristin 13.5 Plt Count 271 MPV 11.2 Immature Gran % (Auto) 0.400 Neut % (Auto) 60.7 Lymph % (Auto) 30.6 [place] % (Auto) 6.9 Eos % (Auto) 0.9 Baso % (Auto) 0.5 Absolute Neuts (auto) 6.4 Absolute Lymphs (auto) 3.23 Nucleated RBC % 0 Sodium 138 Potassium 3.1 L Chloride 104 Carbon Dioxide 30.0 Anion Gap 4 L BUN 9 Creatinine 0.75 Estim Creat Clear Calc 86.53 Est GFR (MDRD) Af Amer 121 Est GFR (MDRD) Non-Af 100 BUN/Creatinine Ratio 12.0 Glucose 97 Calcium 9.4 Radiography Diagnostic Testing: Clinical Impression(s) from Imaging Studies Soft Tissue Neck CT 04/12/22 20:07 IMPRESSION: Prominent palatine and pharyngeal tonsils showing mild hyperenhancement with asymmetric enlargement left lingual tonsils compared to the right. No airway narrowing. No fluid collection to suggest abscess or phlegmon. There is also hyperenhancement of the pharyngeal mucosal space. Mildly prominent anterior cervical chain lymph nodes likely reactive. Diffusely enlarged thyroid gland with areas of heterogeneous decreased density right and left lobes. Correlate physical exam and consider thyroid ultrasound. 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 Less likely fibro-osseous lesion such as fibrous dysplasia, could have this appearance. Consider short-term interval follow-up. Electronically Signed: Red DO Cristina at 21:37 EDT , Discharge Plan Triage Chief Complaint: Sore Throat ED Provider: Noel Willett Dx/Rx/DC Orders Clinical Impression: Conjunctivitis, Acute viral pharyngitis Instructions: ED Conjunctivitis, Nonspecific, ED Pharyngitis, Viral Prescriptions: No Action prenat.vits,stephanie,rmk-umtu-aswle Tablet 1 tab PO DAILY RF: 0 aspirin [Adult Low Dose Aspirin] 81 mg tablet,delayed release (DR/EC) 81 mg PO DAILY RF: 0 cholecalciferol (vitamin D3) 50 mcg (2,000 unit) capsule 50 mcg PO DAILY RF: 0 sertraline [Zoloft] 50 mg tablet 50 mg PO DAILY Qty: 30 RF: 7 Primary Care Provider: Dusty Dewey Referrals: Dusty Dewey, PA [Primary Care Provider] - 3-5 Days Disposition Disposition: Home, Self Care
[2022-04-12 20:54] LABS: Anion Gap 4 (5-15); BUN 9 mg/dL (7-18); Calcium,Total 9.4 mg/dL (8.5-10.1); Chloride 104 mmol/L (98-107); Creatinine, Serum 0.75 mg/dL (0.55-1.02); EST Glomerular Filtration Rate 100 mL/min (>60); Est Glom Filt Rate - Afr Amer 121 mL/min (>60); Estimated Creatinine Clearance 86.53 ml/min; Glucose 97 mg/dL (74-106); Potassium 3.1 mmol/L (3.5-5.1); Sodium Level 138 mmol/L (136-145)
[2022-04-12] MEDS: Erythromycin Base 1 OPTH.TUBE 1 APPLIC OPHTHALMIC (22:51)
[2022-04-12 22:53] VITALS: BP 122/78; PULSE 66; RESP 14; TEMP 37.2; O2SAT 100
== END 2022-04-12 22:54 | disposition home or self-care (01) ==
PROVIDERS: Emergency Provider Emergency Medicine; PCP Physician Assistant; Visit Provider Emergency Medicine
DX: J02.8 Acute pharyngitis due to other specified organisms (principal); H10.9 Unspecified conjunctivitis; B97.89 Other viral agents as the cause of diseases classified elsewhere; F17.200 Nicotine dependence, unspecified, uncomplicated
CPT/HCPCS: 70491; 80048; 85025; 87880; 96361; 96374; 99283; J7030; Q9967

== ENCOUNTER → 2023-02-11 | Outpatient (CLI) | payer MEDICAID, SELFPAY ==
--- NOTE | 2023-02-11 | ASPSI_PTH ---
PATIENT: ELMER GUTIERREZ LOC: [facility] U#:[id number] AGE/SX: 28/F ROOM: RE02/11/[address]: Dr. Zeus Quesada MD : 1995 BED: DIS: 02/11/2023 SPEC #: [id number] RECD: 02/11/23 16:25 STATUS: JENNY BRIANNA #: [id number] TARUN: 02/11/23 00:[address]: Zeus Quesada DEPT: CYTOLOGY RECD BY: Izzy Chow ENTERED: 02/12/23 10:58 SP TYPE: ASP MIRTA TERRY DR: ELSA Osei Tissues: A - Thyroid gland, NOS B - Thyroid gland, NOS Procedures: Surgery Specimen Level IV Cytospin Fluid Cytology Other HEADER OPERATION: Fine needle aspiration left thyroid PRE-OP DIAGNOSIS: Abnormal thyroid ultrasound TISSUE SUBMITTED: A ? FNA left thyroid nodule fluid, B ? FNA left thyroid nodule x34 slides DIAGNOSIS CYTOLOGY A. Left thyroid nodule fluid, fine needle aspiration (cytospin and cell block): Consistent with benign follicular/colloid nodule with cystic changes ([place] Category II). See comment. B. Left thyroid nodule, fine needle aspiration (smears): Consistent with benign follicular/colloid nodule with cystic changes ([place] Category II). Adequate for evaluation. See comment. SJ:azucena 02/13/2023 COMMENT Correlation with clinical, radiologic findings and appropriate follow up are necessary. CYTOLOGY STUDY Slides are reviewed. CYTOLOGY GROSS A - Received is 30 ml of cloudy brown fluid labeled with the patient's name and and designated per the requisition as left thyroid. Submitted for cytology preparation including cell block. B - Received are 34 smears labeled with the patient's name and designated per the requisition as left thyroid. Submitted for staining. / azucena 02/12/2023 TC:5 CPT: 87294 x2, 11536
== END | disposition home or self-care (01) ==
LOC: LABSPEC 16:46
PROVIDERS: PCP Physician Assistant; Referring Provider Surgery; Visit Provider Surgery
DX: E04.1 Nontoxic single thyroid nodule (principal)
CPT/HCPCS: 88108; 88161; 88305